=== PATIENT | female | born 1960 | race Caucasian/White ===

== ENCOUNTER 2017-10-09 15:01 | Emergency (ER) | payer MEDICARE, SELFPAY ==
[2017-10-09 15:02] VITALS: BP 143/75; PULSE 57; RESP 16; TEMP 37.2; O2SAT 97; BMI 25.4
[2017-10-09] MEDS: LORazepam 1 MG Tablet PO (15:41)
--- NOTE | 2017-10-09 16:09 | ED.DCSUM_ITS ---
- ER Visit Summary Date of Service: 10/09/17 Chief Complaint: Anxiety History of Present Illness: The patient is a 57 F who presents with anxiety. She does have a history of anxiety. Psychiatry has been weaning down her benzodiazepines. She is currently staying at a domestic violence intermediate. She states that she is going to run out of her medications but is not out yet. She did take a half a milligram of Ativan this morning. She spoke to the counseling center and states that she was advised to be evaluated here in the emergency department. Physical Examination: Febrile vitals are stable Moist mucous membranes Heart regular rate and rhythm Lungs are clear Alert Patient is anxious and tearful at times but she denies suicidal or homicidal ideation. Test Results: Not indicated Emergency Department Course and Treatment: She was given an milligram of Ativan here. I spoke to the counseling center, Sam. He was not aware of the patient. He spoke to the psychiatrist. He reports that the psychiatrist advised them to come to the counseling center to be seen not the emergency department. They were okay with the plan to give an additional dose of Ativan here in follow-up as an outpatient. I do not believe the patient meets involuntary admission criteria. Treatment Plan: [] Disposition: Discharge Impression: Anxiety This note was generated with [employer] dictation software. It may contain incorrect words, spelling, and punctuation that were not noted in review of the chart prior to signing ED Disposition - Plan for ED Patient: Chief Complaint: Anxiety Referrals: Kate Boss RN [Primary Care Provider] -
--- NOTE | 2017-10-09 16:09 | ED.DEP ---
ED Disposition - Plan for ED Patient: Chief Complaint: Anxiety Instructions: ED Panic Attack Referrals: Kate Boss RN [Primary Care Provider] - Counseling,Center [GROUP OF PHYSICIANS] -
[2017-10-09 16:25] VITALS: PULSE 59; RESP 14; O2SAT 100
== END 2017-10-09 16:33 | disposition home or self-care (01) ==
PROVIDERS: Emergency Provider Emergency Medicine
DX: F41.9 Anxiety disorder, unspecified (principal); F32.9 Major depressive disorder, single episode, unspecified; Z86.39 Personal history of other endocrine, nutritional and metabolic disease; Z79.899 Other long term (current) drug therapy
CPT/HCPCS: 99282

== ENCOUNTER → 2017-10-19 15:59 | Outpatient (CLI) | payer MEDICARE, SELFPAY ==
[2017-10-19 17:37] LABS: Absolute Lymphocyte Count 3.75 X10^3/ul (0.83-4.51); Absolute Neutrophil Count 4.9 X10^3/uL (2.0-7.7); Basophil# 0.04 X10^3/uL; Basophil% 0.4 % (0-1); Eosinophil# 0.12 X10^3/uL; Eosinophils% 1.2 % (0-5); Hematocrit 38.9 % (37-47); Hemoglobin 12.8 g/dl (12.0-15.0); Lymphocyte # 3.75 X10^3/ul (4.0); Lymphocyte % 38.6 % (19-41); Mean Corp Hgb Conc 32.9 g/gl (32-36); Mean Corpuscular Volume 94.2 fL (81-99); Mean Platelet Vol. 12.5 fl (6.2-12.0); Monocyte# 0.85 X10^3/uL; Monocyte% 8.8 % (0-10); Neutrophil # 4.92 X10^3/uL (2.7-7.7); Neutrophil % 50.7 % (47-70); Platelet Count 208 K/mm3 (150-450); RBC Distribution Width CV 13.6 % (11.6-14.6); RBC Distribution Width SD 44.9 fl (35.1-43.9); Red Blood Count 4.13 M/mm3 (4.2-5.4); White Blood Count 9.7 K/mm3 (4.4-11.0)
[2017-10-19 17:40] LABS: POSITIVE COUNT NO; POSITIVE DIFFERENTIAL NO; POSITIVE MORPHOLOGY NO
[2017-10-19 18:08] LABS: ALB/GLOB Ratio 0.9 RATIO (0.9-2.4); AST(SGOT) 18 U/L (15-37); Alanine Aminotransfer ALT/SGPT 29 U/L (13-56); Albumin, Serum 3.4 g/dL (3.2-5.0); Alkaline Phosphatase 86 U/L (45-117); Anion Gap 8 (5-15); BUN 17 mg/dL (7-18); BUN/Creat Ratio 18.1 RATIO (10-20); Chloride 103 mmol/L (98-107); Creatinine, Serum 0.94 mg/dL (0.55-1.02); EST Glomerular Filtration Rate 66 mL/min (>60); Est Glom Filt Rate - Afr Amer 80 mL/min (>60); Globulin 3.9 g/dL (2.2-4.2); Glucose 71 mg/dL (74-106); Potassium 4.2 mmol/L (3.5-5.1); Protein, Total 7.3 g/dL (6.4-8.2); Sodium Level 140 mmol/L (136-145); Thyroid Stim Hormone (TSH) 2.04 uIU/mL (0.358-3.74)
[2017-10-19 18:11] LABS: Vitamin D,25 Hydroxy 17.8 ng/mL (29.95-100.01)
[2017-10-21 12:28] LABS: Hep C Antibodies <0.1 s/co ratio (0.0-0.9)
== END ==
PROVIDERS: Visit Provider Family Medicine Geriatric Medicine
DX: E55.9 Vitamin D deficiency, unspecified (principal); R53.83 Other fatigue; N39.0 Urinary tract infection, site not specified
CPT/HCPCS: 36415; 80053; 82306; 84443; 85025; 86803; 87086

== ENCOUNTER 2017-11-12 20:12 | Emergency (ER) | payer MEDICARE, SELFPAY ==
--- NOTE | 2017-11-12 20:12 | DT_ITS ---
This patient was seen during an EMR downtime November 09, 2017 - November 16, 2017. This patient may have a combination of paper and electronic documentation or all paper documentation. All documentation is viewable within the e-chart portion of [employer] for each patient visit.
[2017-11-14 12:12] LABS: Bacteria 0 SEEN /hpf (None Seen); Color, Urine Yellow (Yellow); Glucose, Dipstick NEGATIVE (Normal); Ketone-Dipstick Negative (Negative); Leukocyte Esterase-Dipstick Negative /ul (Negative); Mucous, Urine 0 SEEN /hpf (<or=2+); Nitrite-Dipstick Negative (Negative); Occult Blood-Urine 10 /ul (Negative); Protein-Dipstick Negative (Negative); Red Blood Cells-Urine 0 SEEN /hpf (0-5); Specific Gravity, Urine 1.015 (1.002-1.030); Squamous Epithelial Cells - UA 0 SEEN /hpf (5-10); Urine Bilirubin Dipstick Negative (Negative); Urine Clarity Clear (Clear); Urine Urobilinogen Normal (Normal); White Blood Cells 0 SEEN /hpf (0-5)
== END 2017-11-12 21:00 | disposition home or self-care (01) ==
LOC: ED 11-13 08:05
PROVIDERS: Emergency Provider Emergency Medicine
DX: F41.9 Anxiety disorder, unspecified (principal); R19.7 Diarrhea, unspecified; R31.9 Hematuria, unspecified; F32.9 Major depressive disorder, single episode, unspecified; E78.5 Hyperlipidemia, unspecified; E78.00 Pure hypercholesterolemia, unspecified; Z79.899 Other long term (current) drug therapy
CPT/HCPCS: 81001; 99283

== ENCOUNTER → 2018-03-16 14:29 | Outpatient (CLI) | payer MEDICARE, SELFPAY | PROVIDERS: Visit Provider Family Medicine Geriatric Medicine | DX: N39.0 Urinary tract infection, site not specified (principal) | CPT/HCPCS: 87086; 87088 ==

== ENCOUNTER → 2018-06-24 15:44 | Outpatient (CLI) | payer MEDICARE, SELFPAY ==
[2018-06-24 17:47] LABS: Absolute Lymphocyte Count 2.95 X10^3/ul (0.83-4.51); Absolute Neutrophil Count 5.5 X10^3/uL (2.0-7.7); Basophil# 0.03 X10^3/uL; Basophil% 0.3 % (0-1); Eosinophils% 2.1 % (0-5); Hematocrit 37.2 % (37-47); Hemoglobin 11.9 g/dl (12.0-15.0); Lymphocyte # 2.95 X10^3/ul (4.0); Lymphocyte % 31.4 % (19-41); Mean Corpuscular Hgb 29.8 pg (27.0-32.0); Mean Corpuscular Volume 93.2 fL (81-99); Mean Platelet Vol. 11.3 fl (6.2-12.0); Monocyte# 0.69 X10^3/uL; Monocyte% 7.4 % (0-10); Neutrophil % 58.7 % (47-70); Platelet Count 244 K/mm3 (150-450); RBC Distribution Width CV 13.8 % (11.6-14.6); RBC Distribution Width SD 46.8 fl (35.1-43.9); Red Blood Count 3.99 M/mm3 (4.2-5.4); White Blood Count 9.4 K/mm3 (4.4-11.0)
[2018-06-24 17:49] LABS: POSITIVE COUNT NO; POSITIVE DIFFERENTIAL NO; POSITIVE MORPHOLOGY NO
[2018-06-24 18:04] LABS: AST(SGOT) 24 U/L (15-37); Alanine Aminotransfer ALT/SGPT 35 U/L (13-56); Albumin, Serum 3.7 g/dL (3.2-5.0); Alkaline Phosphatase 111 U/L (45-117); Anion Gap 9 (5-15); BUN 14 mg/dL (7-18); BUN/Creat Ratio 14.6 RATIO (10-20); Chloride 105 mmol/L (98-107); Creatinine, Serum 0.96 mg/dL (0.55-1.02); EST Glomerular Filtration Rate 64 mL/min (>60); Est Glom Filt Rate - Afr Amer 78 mL/min (>60); Globulin 3.7 g/dL (2.2-4.2); Glucose 109 mg/dL (74-106); Potassium 4.2 mmol/L (3.5-5.1); Protein, Total 7.4 g/dL (6.4-8.2); Sodium Level 141 mmol/L (136-145); Thyroid Stim Hormone (TSH) 1.86 uIU/mL (0.358-3.74)
[2018-06-24 18:09] LABS: Vitamin D,25 Hydroxy 27.1 ng/mL (29.95-100.01)
--- OUTSIDE RECORDS SUMMARY | 2018-08-29 11:25 | XMS RPT_ITS ---
:1960 Author Organization OHIP Care Team Providers Name Role Phone Gustavo Booth Chi Attending Unavailable Tu Genao Attending Unavailable Toshia Bsos Primary Care Unavailable Gustavo Booth Chi Attending Unavailable Toshia Boss Primary Care Unavailable ANGEL OBRIEN Attending Unavailable ANGEL OBRIEN Referring Unavailable Toshia Boss Primary Care Unavailable Gustavo Booth Chi Attending Unavailable THA MARIEBERT A Admitting Unavailable THA MARIEBERT A Attending Unavailable ANDRAE COX Consulting Unavailable ASH GOMEZ (RES) Attending Unavailable CYNTHIA, GILBERT A Referring Unavailable ASH GOMEZ (RES) Attending Unavailable JASON ALEMAN (RES) Attending Unavailable CYNTHIA, GILBERT A Referring Unavailable ASH GOMEZ (RES) Attending Unavailable CYNTHIA, GILBERT A Referring Unavailable ASH GOMEZ (RES) Attending Unavailable CYNTHIA, GILBERT A Referring Unavailable ASH GOMEZ (RES) Attending Unavailable JENNIFER MCDANIELS (RES) Attending Unavailable CYNTHIA, GILBERT A Referring Unavailable ASH GOMEZ (RES) Attending Unavailable CYNTHIA, GILBERT A Referring Unavailable IMCA Primary Care Unavailable CYNTHIA, GILBERT A Admitting Unavailable CYNTHIA, GILBERT A Attending Unavailable ANDRAE COX Consulting Unavailable GOMEZ, DO ALEMAN Attending Unavailable IMCA Primary Care Unavailable CYNTHIA, GILBERT A Referring Unavailable GOMEZ, DO ALEMAN Attending Unavailable IMCA Referring Unavailable [facility]CA Primary Care Unavailable GOMEZ, DO ALEMAN Attending Unavailable CYNTHIA, GILBERT A Referring Unavailable JEAN-PIERRE, GUSTAVO-CHI Primary Care Unavailable GOMEZ, DO ALEMAN Attending Unavailable JEAN-PIERRE, GUSTAVO-CHI Primary Care Unavailable CYNTHIA, GILBERT A Referring Unavailable TOSHIA BOSS CNP Admitting Unavailable TOSHIA BOSS INTERNATIONAL NURSE Attending Unavailable TOSHIA BOSS CNP Primary Care Unavailable GUSTAVO BOOTH MD Consulting Unavailable PROVIDER, UNKNOWN Consulting Unavailable PROVIDER, UNKNOWN Consulting Unavailable PROBLEMS PROBLEMS DATE TYPE CONDITION / CODE ATTENDING STATUS SOURCE 02/18/2018 Active Bipolar disorder, [facility], Active [place] current episode ALEMAN (RES) Clinic Other depressed, severe, [place] without psychotic Repository features / F31.4(ICD-10) 02/04/2018 Active Bipolar disorder, GOMEZ, Active [place] current episode ALEMAN (RES) Clinic Other mixed, unspecified [place] / F31.60(ICD-10) Repository 02/04/2018 Active Generalized [facility], Active [place] anxiety disorder / ALEMAN (RES) Clinic Other F41.1(ICD-10) [place] Repository 12/29/2017 Active Suicidal ideations COLBERT, Active [place] / R45.851(ICD-10) GILBERT A Clinic Other [place] Repository 12/16/2017 Active Slow transit CYNTHIA, Active [place] constipation / GILBERT A Clinic Other K59.01(ICD-10) [place] Repository 12/15/2017 Active Major depressive CYNTHIA, Active [place] disorder, single GILBERT A Clinic Other episode, [place] unspecified / Repository F32.9(ICD-10) 12/15/2017 Active Bipolar disorder, CYNTHIA, Active [place] current episode GILBERT A Clinic Other manic severe with [place] psychotic features Repository / F31.2(ICD-10) 12/15/2017 Active Episodic CYNTHIA, Active [place] tension-type GILBERT A Clinic Other headache, not [place] intractable / Repository G44.219(ICD-10) 12/15/2017 Active Bipolar disorder, CYNTHIA, Active [place] current episode [facility] Other mixed, severe, [place] without psychotic Repository features / F31.63(ICD-10) 12/16/2017 Admitting Unknown / CYNTHIA, Active [place] [facility] diagnosis UNK(Unknown) [facility] Repository 12/04/2017 Unknown R10.9 - ANGEL OBRIEN Active [place] Unspecified Community abdominal pain / Hospital R10.9(ICD-10) Repository PROCEDURES PROCEDURES No Procedure Records FoundRESULTS RESULTS Observed: 06/24/2018 Status: F Source: [place] CULTURE, URINE 4:14 PM [facility] REPOSITORY Urine Culture Below infection level. ORGANISM 1: Mixed Gram Positive Organisms [place] Count 1000-10,000 MIX CULTURE Mixed contaminants. Submit a new specimen if indicated. Performed By: #### M100.0650 #### [facility] [address] [place], [address] CBC W/DIFF, AUTOMATED Collected: 06/24/2018 Status: F Source: [place] 3:46 PM [facility] REPOSITORY TYPE CODE TESTS RESULT OUT OF RANGE REFERENCE UNITS LAB L100.1000 4.4-11.0 K/mm3 Normal WBC 9.4 LAB L100.1200 4.2-5.4 M/mm3 Low RBC 3.99 LAB L100.1300 12.0-15.0 g/dl Low HGB 11.9 LAB L100.1400 37-47 % Normal HCT 37.2 LAB L100.1500 81-99 fL Normal MCV 93.2 LAB L100.1600 27.0-32.0 pg Normal MCH 29.8 LAB L100.1700 32-36 g/gl Normal MCHC 32.0 LAB L100.1810 11.6-14.6 % Normal RDW CV 13.8 LAB L100.1820 35.1-43.9 fl High RDW SD 46.8 LAB L100.1900 150-450 K/mm3 Normal PLT 244 LAB L100.2000 6.2-12.0 fl Normal MPV 11.3 LAB L100.2100 47-70 % Normal NEUT% 58.7 LAB L100.2200 19-41 % Normal LY% 31.4 LAB L100.2300 0-10 % Normal MONO% 7.4 LAB L100.2400 0-5 % Normal EO% 2.1 LAB L100.2500 0-1 % Normal BASO% 0.3 LAB L100.2550 0.0-0.9 % Normal IM GRAN % 0.100 Result Comment: IG% - Immature Granulocytes (promyelocytes, myelocytes and metamyelocytes) > 1% indicates that a LEFT SHIFT is Present. LAB L100.2620 2.0-7.7 X10 3/uL Normal Absolute Neut 5.5 LAB L100.2720 0.83-4.51 X10 3/ul Normal Absolute Lymph 2.95 Performed By: #### L100.0100 #### [facility] [address] [place], [place], [address] COMPREHENSIVE METABOLIC Collected: 06/24/2018 Status: F Source: [facility] 3:46 PM [facility] REPOSITORY TYPE CODE TESTS RESULT OUT OF RANGE REFERENCE UNITS LAB L501.0100 74-106 mg/dL High GLU 109 Result Comment: Fasting Glucose result from 100 to 125 mg/dL suggests IMPAIRED HOMEOSTASIS per A.D.A. criteria. Please note revised GLUCOSE reference range effective 2017. LAB L501.1000 7-18 mg/dL Normal BUN 14 LAB L501.1100 0.55-1.02 mg/dL Normal CREAT,SERUM 0.96 Result Comment: The validity of the calculated GFR AND GFRAA in patients over 70 years has not been determined. Clinical correlation is essential. LAB L501.1110 >60 mL/min Normal EST GFR 64 Result Comment: Non- GFR Calc LAB L501.1115 >60 mL/min Normal EST GFR - AA 78 Result Comment: GFR Calc LAB L501.1300 10-20 RATIO Normal BUN/CRE 14.6 LAB L501.1500 6.4-8.2 g/dL T Normal PROT 7.4 LAB L501.1800 3.2-5.0 g/dL Normal ALB 3.7 LAB L501.1950 2.2-4.2 g/dL Normal GLOB 3.7 LAB L501.2000 0.9-2.4 RATIO Normal A/G 1.0 LAB L501.2200 8.5-10.1 mg/dL CA Normal 9.0 LAB L501.4100 15-37 U/L Normal AST 24 LAB L501.4305 45-117 U/L Normal ALK P 111 LAB L501.4405 13-56 U/L Normal ALT 35 LAB L501.4600 0.20-1.00 mg/dL T Normal BILI 0.40 LAB L501.5300 136-145 mmol/L NA Normal 141 LAB L501.5600 3.5-5.1 mmol/L K Normal 4.2 LAB L501.5900 98-107 mmol/L CL Normal 105 LAB L501.6100 21.0-32.0 mmol/L Normal CO2 27.0 LAB L501.6200 5-15 Normal GAP 9 Performed By: #### L500.4050, L501.9520 #### [facility] [address] [place], [place], [address] THYROID STIM HORMONE Collected: 06/24/2018 Status: F Source: [place] (TSH) 3:46 PM [facility] REPOSITORY TYPE CODE TESTS RESULT OUT OF RANGE REFERENCE UNITS LAB L501.9520 0.358-3.74 uIU/mL Normal TSH 1.86 Performed By: #### L500.4050, L501.9520 #### [facility] [address] [place], [place], [address] VITAMIN D,25 HYDROXY Collected: 06/24/2018 Status: F Source: [place] 3:46 PM [facility] REPOSITORY TYPE CODE TESTS RESULT OUT OF REFERENCE UNITS RANGE LAB L506.1000 29.95-100.01 ng/mL Low Vitamin D 27.1 25-OH Result Comment: Vitamin D 25(OH) Status Range Deficiency <20 ng/mL (50nmol/L) Insuffciency 20 - 30 ng/mL (50 - 75 nmol/L) Sufficiency 30 - 100 ng/mL (75 - 250 nmol/L) Toxicity >100 ng/mL (>250 nmol/L) Performed By: #### L506.1000 #### [facility] [address] [place], [place], [address] PROGRESS Observed: 06/17/2018 Status: COMPLETED Source: [place] 4:23 PM [facility] [place] REPOSITORY HNO ID: [id number] Author: Ravindra Bray Service: (none) Author Type: Physician Type: Progress Notes Filed: 06/18/2018 9:17 AM Note Text: Teaching Attending Note I evaluated the patient and personally participated in the fair components. I agree with the resident's findings and plan as documented and have discussed the case and management of the patient's care with the resident. I confirm the fair elements of the history. I confirm the fair elements of the mental status examination. I reviewed the findings with the resident. I confirm the diagnosis and agree with the resident's plan of care. Please see resident's note for furthur details. The patient was seen with her . She was pleasant and cooperative with the examination. Patient reports that her symptoms of depression and anxiety are under good control. She is tolerating her medications well. Patient's sleep is reported as being fair. She is not reporting any active suicidal or homicidal thoughts or plans. Patient denies any paranoid thoughts or delusions. She denies any auditory or visual hallucinations. Patient denies any use of alcohol, tobacco or illicit drugs. Her cognitive functioning is good. Patient's insight and judgment are fair. She agrees to comply with the treatment plan. PHQ-9: 0, last 5 MICHAEL-7: 0, last 5 Current Outpatient Prescriptions: buPROPion XL (WELLBUTRIN XL) 150 mg 24 hr tablet Take 1 tablet by mouth once daily. Disp: 30 tablet Rfl: 0 DULoxetine (CYMBALTA) 60 mg capsule Take 1 capsule by mouth once daily. Disp: 30 capsule Rfl: 2 lamoTRIgine (LAMICTAL) 200 mg tablet Take 1 tablet by mouth twice daily. Disp: 60 tablet Rfl: 0 OLANZapine (ZYPREXA) 10 mg tablet Take 1 tablet by mouth daily at bedtime. Disp: 30 tablet Rfl: 0 oxybutynin (DITROPAN) 5 mg tablet Disp: Rfl: atorvastatin (LIPITOR) 20 mg tablet Take 20 mg by mouth once daily. Disp: Rfl: No current facility-administered medications for this visit. There were no vitals taken for this visit. PDMP website checked and validated. All prescriptions have been APPROPRIATELY filled. No suspicious activity was identified. 06/17/2018 by Ravindra Bray MD We discussed a treatment plan with the patient and her . She will continue on Zyprexa 10 mg by mouth once daily, Lamictal 200 mg by mouth twice daily, Cymbalta 60 mg by mouth once daily and Wellbutrin XL 150 mg by mouth once daily. She will return for follow-up appointment in 6 weeks time. If there are any problems in the interim, the patient will contact our clinic for an earlier appointment. For all medical and psychiatric emergencies, the patient will go to the nearest emergency room. Diagnosis Bipolar 1 disorder, current episode depressed, in partial remission Generalized anxiety disorder Plan As indicated in Dr. Pablo's excellent note. Ravindra Bray MD, MS, DFAPA Director Operations Broadcast, Department of Psychiatry AND Behavioral Sciences [facility] Chief, Section for Geriatric Psychiatry [facility] chef under, [facility] at [facility] P: [phone] F: [phone] [email or web address] Pager: [phone] PROGRESS Observed: 06/17/2018 Status: COMPLETED Source: [place] 3:00 PM [facility] REPOSITORY HNO ID: [id number] Author: Ash (Jv) Jason Service: (none) Author Type: Resident Type: Progress Notes Filed: 06/18/2018 9:17 AM Note Text: [facility] Security And Privacy Consultant Clinic PROGRESS NOTE PATIENT: Radha Lancaster MRD: [id number] DATE: June 17, 2018 IDENTIFYING INFORMATION: Radha is a 58 year old female with a history of bipolar affective disorder, a learning disability, generalized anxiety disorder, and conversion disorder. Currently follows in the clinic for symptoms of depression and anxiety. Recently decreased her seroquel AND then discontinued it, along with reducing her dose of Zyprexa to 10 mg rather than 20 mg BID. CHIEF COMPLAINT: I feel great SUBJECTIVE: Patient has a cheerful demeanor today, but doesn't appear overtly manic. That is, she's happy with her recent improvements in anxiety, sleep quality, and activity level. She is able to maintain a daily routine and is starting to volunteer more. Moreover, her reports she appears to have less word finding difficulty and can annunciate clearly. They attribute this to the oversedatation with prior medications. They both believe that this is the best she has been in some time, but her doesn't appear worried about her being too elevated. At this time, she seems genuinely happy with recent changes and is relatively realistic with her goals. I am not observing or appreciating grandiosity, psychomotor excitation, decreased need for sleep, or out of character behaviors, and neither has her . Either way, encouraged her to work on her goal of getting more exercise, but cautioned about being realistic and working on one goal at a time. The progress she has made follows a reduction in her antipsychotic medication and psychosocial interventions including supportive psychotherapy and applying principles of CBT (mostly starting with getting picture of basic patterns and then creating structure). Medication side effects: None VITAL SIGNS: There were no vitals taken for this visit. LAB DATA: see EHR. None for this session. MENTAL STATUS EXAMINATION: Appearance: appears stated age, ,Female, well developed, well nourished, normal clothing, grooming is Within Normal Limits, generally attends to her appearance. Activity: Normal , Steady gait, neutral muscle tone, Behavior: Cooperative and gregarious, but this appears sincere AND not excessive, Good eye contact, Speech: spontaneous , Normal rate, Normal volume, Clear, Mood: Euthymic and content Affect: appropriate to content and with full AND bright affect Thought Process: coherent and circumstantial Thought Content: see HPI. Wants to start exercise regimen, No suicidal ideation, intent or plan., No homicidal ideation, intent or plan., Coherent Cognition: Orientation: Person, Place, Time and Situation Attention: Intact Concentration: Impaired, but appears improved since previous appointments. May be near her baseline. Language: Intact naming, Intact repetition Estimated Intelligence: Fair Memory: Intact recent memory, Intact remote memory Abstraction: Intact Insight: fair Judgement: fair RATING SCALES: PHQ was a 2 AND MICHAEL 7 was a 0. Discussed results with patient AND attending provider. Will continue to monitor. RISK ASSESSMENT: low at this time for suicidal or homicidal behavior IMPRESSION: 1. Bipolar 1 disorder, in partial remission 2. Generalized anxiety disorder 3. Learning disability: Dyslexia 4. Rule out Unspecified neurodevelopmental disorder vs neurocognitive disorder 5. Deferred Medical Diagnoses: see EHR PLAN: 1. Continue with current plan. Discussed realistic treatment goals with patient AND her . 2. Medications: Continue on current regimen without changes. Encouraged patient to take as prescribed. 3. Labs: none this session. PDMP website checked and validated. All prescriptions have been APPROPRIATELY filled. No suspicious activity was identified. 06/17/2018 by Ash Gomez DO 4. Patient understands and agrees with the plan: Yes Return in 6 weeks[address] Discussed patient with Dr. Bray. Electronically signed by Ash Gomez DO June 17, 2018 11:11 AM PROGRESS Observed: 06/03/2018 Status: COMPLETED Source: [place] 2:30 PM [facility] [place] HNO ID: [id number] Author: Ravindra Bray Service: (none) Author Type: Physician Type: Progress Notes Filed: 06/03/2018 5:18 PM Note Text: Teaching Attending Note I evaluated the patient and personally participated in the fair components. I agree with the resident's findings and plan as documented and have discussed the case and management of the patient's care with the resident. I confirm the fair elements of the history. I confirm the fair elements of the mental status examination. I reviewed the findings with the resident. I confirm the diagnosis and agree with the resident's plan of care. Please see resident's note for furthur details. The patient was seen with her . She was pleasant and cooperative with the examination. Patient reports that her symptoms of depression and anxiety are under fair control. Patient still has some sedation from the Zyprexa and she is also concerned about some recent weight gain. Patient also reported that she was not receiving the medications from the pharmacy on time. Patient did not report any suicidal or homicidal thoughts or plans. She denied any paranoid thoughts or delusions. Patient denied any auditory or visual hallucinations. Not report any use of alcohol, tobacco or illicit drugs. Her cognitive functioning was mildly impaired on the cognitive testing done at the last appointment. Patient however remains independent with her basic and instrumental activities of daily living. Her insight and judgment are fair and she agrees to comply with the treatment plan. PHQ-9: 5, last 6 MICHAEL-7: 5, last 6 Cognivue: Done at the last appointment, 48, high risk for cognitive impairment Current Outpatient Prescriptions: atorvastatin (LIPITOR) 20 mg tablet Take 20 mg by mouth once daily. Disp: Rfl: buPROPion XL (WELLBUTRIN XL) 150 mg 24 hr tablet Take 1 tablet by mouth once daily. Disp: 30 tablet Rfl: 0 DULoxetine (CYMBALTA) 60 mg capsule Take 1 capsule by mouth once daily. Disp: 30 capsule Rfl: 2 lamoTRIgine (LAMICTAL) 200 mg tablet Take 1 tablet by mouth twice daily. Disp: 60 tablet Rfl: 0 OLANZapine (ZYPREXA) 10 mg tablet Take 1 tablet by mouth daily at bedtime. Disp: 30 tablet Rfl: 0 oxybutynin (DITROPAN) 5 mg tablet Disp: Rfl: oxybutynin XL (DITROPAN XL) 5 mg 24 hr tablet Take 5 mg by mouth once daily. Disp: Rfl: No current facility-administered medications for this visit. There were no vitals taken for this visit. All prescriptions have been APPROPRIATELY filled. No suspicious activity was identified. We discussed a show weight gain with the patient. We counseled the patient on eating healthy and daily exercise. Even if with these measures, the patient continues to gain weight we will refer the patient with dietitian. We may also need to discontinue the Zyprexa at a later date if the weight gain continues. We discussed a treatment plan with the patient and her . Patient will continue on Zyprexa at 10 mg by mouth once daily, Lamictal 200 mg by mouth twice daily, Cymbalta 60 mg by mouth once daily and Wellbutrin XL 150 mg by mouth once daily. Patient will return for follow- up appointment in 2 weeks time. If there are any problems in the interim, the patient or her will contact our clinic for an earlier appointment. For all medical and psychiatric emergencies, the patient will go to the nearest emergency room. Diagnosis Bipolar 1 disorder, current episode depressed, in partial remission Generalized anxiety disorder Antipsychotic-induced weight gain Plan As indicated in Dr. Mcdaniels's excellent note. Ravindra Bray MD, MS, DFAPA Director Operations Broadcast, Department of Psychiatry AND Behavioral Sciences [facility] Chief, Section for Geriatric Psychiatry [facility] chef under, [facility] at [facility] P: [phone] F: [phone] [email or web address] Pager: [phone] PROGRESS Observed: 06/03/2018 Status: COMPLETED Source: [place] 1:38 PM [facility] REPOSITORY HNO ID: [id number] Author: Jennifer Mcdaniels Service: (none) Author Type: Resident Type: Progress Notes Filed: 06/03/2018 5:18 PM Note Text: [facility] Security And Privacy Consultant Clinic PROGRESS NOTE PATIENT: Radha Lancaster MRD: [id number] DATE: June 03, 2018 IDENTIFYING INFORMATION: Radha is a 58 year old female with a history of bipolar disorder. CHIEF COMPLAINT: I'm doing well SUBJECTIVE: She says that the current medications are working well for her. The only concern that they have is that her medications is not arriving on time. She says that she forgot to get her labs done, and appears to be confused during this visit. She is still volunteering every Thursday. She says that she feels the medication regimen is working well. She says that the Zyprexa makes her too tired in the morning. She tried to take it earlier and then will fall asleep about 30 min after taking it. She is also concerned about her weight gain on the medications however, overall both her and her feel she is doing well. She feels her mood has improved and stabilized and denies suicidal ideations. Her is grateful she has received such good care at this clinic. Medication side effects: weight gain VITAL SIGNS: There were no vitals taken for this visit. LAB DATA: Patient forget MENTAL STATUS EXAMINATION: Appearance: Well dressed, well groomed Behavior: Socially awkward Social relatedness: Anxious/Nervousness Speech/Language:The patient demonstrates appropriate tone, prosody, luis, phonetics, and syntax Mood:flat Affect: Blunted Orientation: Person, Place, Time and Situation Associations: Intact and linear Hallucinations: None Delusions: None Suicidal Ideation: No suicidal ideation, intent or plan. Homicidal Ideation: No homicidal ideation, intent or plan. Insight: Limited Judgment: Limited RATING SCALES: PHQ-9: 5 MICHAEL-7: 5.5 RISK ASSESSMENT: The patient denies suicidal and homicidal ideations as well as thoughts of harm to herself and others. 1. Bipolar I Disorder, most recent episode mixed 2. Generalized Anxiety Disorder 3. Specific learning disorder - dyslexia, per history 6. Rule out Dependent Personality Traits Medical Diagnoses: see EHR ? PLAN: 1. Medications: Zyprexa 10 mg, Lamictal 200 mg BID, Cymbalta 60 mg daily and Wellbutrin XL 150 mg daily 2. I called [facility] to see why prescriptions are always late - they assured that the prescriptions are sent out a week in advance. They say the last time, her medications were accidentally shipped to [place], but were only a day late. They say they will continue to get them to her as early as possible. 3. Labs: A1c, Lipids, AND?TSH - patient forgot, reminded them to get this done PDMP website checked and validated. All prescriptions have been APPROPRIATELY filled. No suspicious activity was identified. 06/03/2018 by Jennifer Mcdaniels DO Patient understands and agrees with the plan: Yes Return in [address] Discuss[address] patient with Dr. Bray. Electronically signed by Jennifer Mcdaniels DO June 03, 2018 1:38 PM PROGRESS Observed: 05/14/2018 Status: COMPLETED Source: [place] 4:20 PM [facility] [place] REPOSITORY HNO ID: [id number] Author: Ravindra Bray Service: (none) Author Type: Physician Type: Progress Notes Filed: 05/17/2018 11:40 AM Note Text: Teaching Attending Note I evaluated the patient and personally participated in the fair components. I agree with the resident's findings and plan as documented and have discussed the case and management of the patient's care with the resident. I confirm the fair elements of the history. I confirm the fair elements of the mental status examination. I reviewed the findings with the resident. I confirm the diagnosis and agree with the resident's plan of care. Please see resident's note for furthur details. The patient was seen with her . She was pleasant and cooperative with the examination. Patient reports an improvement in her symptoms of depression and anxiety since the last appointment. She still complains of some sedation. Patient did not report any suicidal or homicidal thoughts or plans. She denied paranoid thoughts or delusions. Patient denied any auditory or visual hallucinations. Patient did not report any use of alcohol, tobacco or illicit drugs. Her cognitive functioning was mildly impaired on testing. Patient however remains independent with her days again instrumental activities of daily living. Her insight and judgment are fair. The patient agrees to comply with the treatment plan. PHQ-9: 6, last 16 MICHAEL-7: 6, last 12 Cognivue: 46, cognitive impairment Current Outpatient Prescriptions: DULoxetine (CYMBALTA) 60 mg capsule Take 1 capsule by mouth once daily. Disp: 30 capsule Rfl: 2 OLANZapine (ZYPREXA) 10 mg tablet Take 1 tablet by mouth daily at bedtime. Disp: 30 tablet Rfl: 0 oxybutynin (DITROPAN) 5 mg tablet Disp: Rfl: atorvastatin (LIPITOR) 20 mg tablet Take 20 mg by mouth once daily. Disp: Rfl: oxybutynin XL (DITROPAN XL) 5 mg 24 hr tablet Take 5 mg by mouth once daily. Disp: Rfl: lamoTRIgine (LAMICTAL) 200 mg tablet Take 1 tablet by mouth twice daily. Disp: 60 tablet Rfl: 0 buPROPion XL (WELLBUTRIN XL) 150 mg 24 hr tablet Take 1 tablet by mouth once daily. Disp: 30 tablet Rfl: 0 No current facility-administered medications for this visit. All prescriptions have been APPROPRIATELY filled. No suspicious activity was identified. We discussed a treatment plan with the patient and her . As the patient is still complaining of sedation, we will discontinue the Seroquel today. Patient will continue on Zyprexa 10 mg by mouth twice daily number Lamictal 200 mg by mouth twice daily, Cymbalta 60 mg by mouth once daily and Wellbutrin XL 150 mg by mouth once daily. We also discussed the patient's cognitive impairment noted today on computerized testing. This is probably secondary to the patient's depression and anxiety. The medications that she is taking also may be contemplating to the cognitive issues. We will keep a close watch on the patient's cognitive functioning. Patient will return for follow-up appointment in 3 weeks time. If there are any problems in the interim, the patient will contact our clinic for an earlier appointment. For all medical and psychiatric emergencies, the patient will go to the nearest emergency room. Diagnosis Bipolar 1 disorder, current episode depressed, in partial remission Generalized anxiety disorder Plan As indicated in Dr. Pablo's excellent note. Ravindra Bray MD, MS, [facility] Director Operations Broadcast, Department of Psychiatry AND Behavioral Sciences [facility] Chief, Section for Geriatric Psychiatry [facility] chef under, [facility] [employer] at [facility] P: [phone] F: [phone] [email or web address] Pager: [phone] PROGRESS Observed: 05/14/2018 Status: COMPLETED Source: [facility] 3:05 PM [facility] REPOSITORY HNO ID: [id number] Author: Ash (Brendan Gomez Service: (none) Author Type: Resident Type: Progress Notes Filed: 05/17/2018 11:40 AM Note Text: [facility] Security And Privacy Consultant Clinic PROGRESS NOTE PATIENT: Radha Lomax MRD: [id number] DATE: May 14, 2018 IDENTIFYING INFORMATION: Radha is a 58 year old female with a history of bipolar disorder, dyslexia, and depression. CHIEF COMPLAINT: I am doing better, I still feel really tired SUBJECTIVE: Asked about missed appointment policy, as her father may pass away. He is ill and near . Her and her asked for leeway if they need to miss an appointment and call afterwards to reschedule. She reports her mood has improved, she's more active, and feels more organized. Still has issues with trying to set too many goals or tasks at one time and then gets anxious about it. Able to integrated advice from therapist and regarding this. Feels her appetite has increased, she skips lunch, and then eats a large dinner to compensate. Other relevant stressor was her husbands ND that required catheterization with stent around thanksgiving, seemed to have a paradoxic effect as it was stressful, but it orlin them closer as she realized how grateful he was and possibly how fragile life is, yet they both still have the opportunities to make the most of it. The couple is grateful for the treatment given here at the clinic. Medication side effects: sedation VITAL SIGNS: There were no vitals taken for this visit. LAB DATA: metabolic labs. Not found in EMR, will update chart when completed/found. MENTAL STATUS EXAMINATION: Appearance: appears stated age, ,Female, well developed, well nourished, normal clothing, grooming is Within Normal Limits, slightly formal today Activity: Normal , Steady gait, normal muscle tone, Behavior: Cooperative, Good eye contact, silly acting in a way, but this is her baseline Speech: spontaneous , Rapid rate, Normal volume, Clear, Mood: Euthymic in session, but anxious at times prior Affect: appropriate to content, full and bright Thought Process: circumstantial and tangential Thought Content: future oriented and optimistic, No suicidal ideation, intent or plan., No homicidal ideation, intent or plan., Ruminations: about failure to complete things, but more forgiving of self Cognition: Orientation: Person, Place, Time and Situation Attention: Impaired Concentration: Impaired Language: Intact naming, Intact repetition Estimated Intelligence: Average Memory: Intact recent memory, Intact remote memory Abstraction: Intact Insight: fair Judgement: fair RATING SCALES: Patient Health Questionnaire (PHQ-9) PHQ-9: 6 Score of 5 - 9 indicates mild depression. This is decreased from previous value of 16 measured on 04/22. However the issues she indicated on her PHQ included appetite, concentration difficulties, and psychomotor vegetative signs. MICHAEL-7: 7 Score of 5-9 indicates mild anxiety. This decreased from 12 as measured on 04/22. RISK ASSESSMENT: low for suicidal or aggressive behaviors, moderate for other forms of acting out. ? IMPRESSION: Her affective disorder impairs her ability to function, however, it appears she's affected by her polypharmacy (iatrogenic), cognitive, personality traits, or a combination of them leading to consistent cycling of decompensations requiring assistance AND healthcare intervention. As of this assessment, going to adjust her medication regimen and monitor her cognitive status. ? 1. Bipolar I Disorder, most recent episode mixed 2. Generalized Anxiety Disorder 3. Specific learning disorder - dyslexia, per history 6. Rule out Dependent Personality Traits Medical Diagnoses: see EHR ? PLAN: 1. Continue current medication regimen, except discontinuation. Encouraged her to maintain routine and prioritize. 2. Medications: Discontinued Seroquel to 50 mg QHS. Rest medications kept the same. See AUG 3. Labs: A1c, Lipids, AND TSH PDMP website checked and validated. All prescriptions have been APPROPRIATELY filled. No suspicious activity was identified. 05/14/2018 by Ash Gomez DO 1. Patient understands and agrees with the plan: Yes Return in [address] Mcdaniels while I'm on vacation. 5-6 weeks to follow up with me Discussed patient with Dr. Bray. Electronically signed by Ash Gomez DO May 14, 2018 3:05 PM PROGRESS Observed: 04/22/2018 Status: COMPLETED Source: SIMS 3:08 PM [facility] [place] REPOSITORY O ID: [id number] Author: Ravindra Bray Service: (none) Author Type: Physician Type: Progress Notes Filed: 04/23/2018 10:16 AM Note Text: Teaching Attending Note I evaluated the patient and personally participated in the fair components. I agree with the resident's findings and plan as documented and have discussed the case and management of the patient's care with the resident. I confirm the fair elements of the history. I confirm the fair elements of the mental status examination. I reviewed the findings with the resident. I confirm the diagnosis and agree with the resident's plan of care. Please see resident's note for furthur details. The patient was seen with her . She was pleasant and cooperative with the examination. Patient reports feeling depressed. She also reports feeling anxious. Patient reports some suicidal thoughts but no active plans. She reports some sedation with the current medications. Patient does not report any paranoid thoughts or delusions. She denies any auditory or visual hallucinations. Patient denies any use of alcohol, tobacco or illicit drugs. Her cognitive functioning is fair. Patient's insight and judgment are fair. She agrees to comply with the treatment plan. PHQ-9: 16, Last 0 MICHAEL-7: 12, Last 1 Current Outpatient Prescriptions: QUEtiapine (SEROQUEL) 100 mg tablet Take 1 tablet by mouth daily at bedtime. Disp: 30 tablet Rfl: 0 OLANZapine (ZYPREXA) 10 mg tablet Take 1 tablet by mouth daily at bedtime. Disp: 30 tablet Rfl: 0 oxybutynin (DITROPAN) 5 mg tablet Disp: Rfl: atorvastatin (LIPITOR) 20 mg tablet Take 20 mg by mouth once daily. Disp: Rfl: oxybutynin XL (DITROPAN XL) 5 mg 24 hr tablet Take 5 mg by mouth once daily. Disp: Rfl: lamoTRIgine (LAMICTAL) 200 mg tablet Take 1 tablet by mouth twice daily. Disp: 60 tablet Rfl: 0 DULoxetine (CYMBALTA) 60 mg capsule Take 1 capsule by mouth once daily. Disp: 30 capsule Rfl: 0 buPROPion XL (WELLBUTRIN XL) 150 mg 24 hr tablet Take 1 tablet by mouth once daily. Disp: 30 tablet Rfl: 0 No current facility-administered medications for this visit. We discussed a treatment plan with the patient and her . As the patient is complaining of sedation we will decrease the dose of Seroquel to 50 mg by mouth daily at bedtime. Patient will continue on Zyprexa 10 mg by mouth twice daily, Lamictal 200 mg by mouth twice daily, Cymbalta 60 mg by mouth once daily and Wellbutrin XL 150 mg by mouth once daily. The option for admission to inpatient psychiatric unit and ECT treatment were discussed. Patient return for follow-up appointment in 2 weeks time. If there are any problems in the interim, the patient will contact our clinic for an earlier appointment. For all medical and psychiatric emergencies, the patient go to the nearest emergency room. Diagnosis Bipolar 1 disorder, current episode depressed, severe, without psychotic features Generalized anxiety disorder Plan As indicated in Dr. Pablo's excellent note. Ravindra Bray MD, MS, [facility] Director Operations Broadcast, Department of Psychiatry AND Behavioral Sciences [facility] Chief, Section for Geriatric Psychiatry [facility] chef under, [facility] [place] at [facility] P: [phone] F: [phone] [email or web address] Pager: [phone] PROGRESS Observed: 04/22/2018 Status: COMPLETED Source: [facility] 2:40 PM [facility] [place] REPOSITORY O ID: [id number] Author: Ash (Res) Jason Service: (none) Author Type: Resident Type: Progress Notes Filed: 04/23/2018 10:16 AM Note Text: [facility] Security And Privacy Consultant Clinic PROGRESS NOTE PATIENT: Radha Lancaster MRD: [id number] DATE: April 22, 2018 IDENTIFYING INFORMATION: Radha is a 57 year old female with a history of bipolar disorder AND conversion disorder. CHIEF COMPLAINT: I was depressed this Thursday AND I feel groggy all of the time SUBJECTIVE: Radha seems cheerful today, with broad affect. She reports having issues with depression over the past two weeks AND feels overly sedated. it?s worse in the mornings AND she?s confused about which medications she?s supposed to take, despite it being laid out for her each session, during interim phone calls, by her , via printed patient instructions with a checklist for her medications listed by time of day, AND is given to her by her pharmacy in packaging that separates her medications by day of the week AND time of administration (day vs night). Despite approximately 5 attempts, she?s still anxious about trying to figure out which medications are sedating AND cannot identify her seroquel. Showed her pictures of seroquel tablets AND explained to her that of her 3 QHS medications, she can eliminate the half tablet from consideration as it is her Zyprexa (placed in her regimen in error anyways, she?s supposed to have 10 mg QHS but the pharmacy has been giving her BID dosing. Splits 20 mg tablet in half based on rx from inpatient provider). I called her pharmacy, with herself AND her in the room to clarify her regimen AND assert that she is not to be given psychotropics by other providers. Recalls mostly depression occuring over the weekends, characterized by anhedonia, sad mood, tearfullness, low self worth appraisal, hypersomnolence, AND difficulty concentrating. Remarks she has gained weight over the past year AND is concerned about her metabolic profile. Despite seeming so disorganized in thought AND emotion, she appears to have good, if not above average, attendance to grooming AND hygiene. Her also states he assists AND will continue to assist with her care. Dynamic is still present, where she tests boundaries by requesting changes in her regimen or is confused by such (despite requesting), while he reassures her AND then directs her. He?s requesting that we taper her off of one of her antipsychotics based [facility]. Also asked about Topiramate. I reminded him that we had discussed this during the first appointment AND that it was I who had brought it up, followed by my attending Dr Bray (when staffing the patient). He feels more ready now to agree to plan. I explained that her medicaiton regimen has unnecessary redundancy AND increased adverse effects. For next session, she would require cognitive testing via Cognivue. Likely, she may not complete the short screening procedure. Medication side effects: oversedation VITAL SIGNS: There were no vitals taken for this visit. LAB DATA: ordered A1c, TSH, AND Lipid panel on 04/12/2018, but not in system. Will update when labs acquired. MENTAL STATUS EXAMINATION: Appearance: appears stated age, ,Female, well developed, well nourished, normal clothing, grooming is Within Normal Limits, attends to her appearance well AND appears well kept. Not disheveled or haphazard in her grooming or choice of attire. Activity: Normal , Steady gait, normal muscle tone, Behavior: Cooperative AND very dependent., Good eye contact, Speech: spontaneous , Normal rate, Normal volume, Clear, repeats herself often Mood: Depressed Affect: Inappropriate to content, Constricted but content appearing, same smile maintained throughout the session Thought Process: perseveration Thought Content: fixated on clarifying medication regimen, despite multiple attempts to do so with her. Appears helpless AND views herself as such w/ limited self efficacy , No suicidal ideation, intent or plan in session. Reports some passive ideation prior to coming in., No homicidal ideation, intent or plan., Obsessions: jregarding health AND medications Cognition: Orientation: Person, Place, Time and Situation Attention: Impaired Concentration: Impaired Language: Intact naming, Intact repetition Estimated Intelligence: Average Memory: Severly Impaired recent memory, Mildly Impaired remote memory Abstraction: Impaired Insight: poor Judgement: poor RATING SCALES: PSYCHOLOGY SCREENING/TESTING: PHQ-9= 16, ((10-14 moderate depression). MICHAEL-7 = 12 ((11-15) moderately severe anxiety). (positive is MICHAEL=8 or PHQ=9) The screen was Positive for anxiety and depression. Positive screen was discussed with the patient with the following plan: continue ongoing treatment continue to monitor. The patient verbalized understanding of above plan. RISK ASSESSMENT: low to moderate for suicidal behaviors IMPRESSION: Has affective disorder that impairs her ability to function, however, it appears she's affected by her polypharmacy (iatrogenic) or personality traits leading to consistent cycling of decompensations requiring assistance AND healthcare intervention. She's very dependent AND emotionally labile. 1. Unspecified Bipolar Disorder 2. Generalized Anxiety Disorder 3. 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 Continue current medication regimen. Called her pharmacy in session, with both her AND her present to clarify her medication regimen. Explained it to her multiple times, while also showing her pictures of Quietiapine tablets so that she could identify them. Encouraged her to drop by her pharmacy to have them show her which tablet is Seroquel. Her option is to cut her current medication in half or have the pharmacy give her 50 mg. As usual, I printed off a list of her medications with the times of administration AND check boxes to document when she takes the medications to help her keep track. However, she repeatedly asked about the same medications AND then called the office twice within a few minutes of each other (leaving voicemails) asking about her medication regimen. I then called her pharmacy, the second time AND left a message clarifying her medication regimen AND to specify that I, with a supervising physician Dr Bray, am her current psychiatric provider AND that her mail order medication packets shouldn't include medications from other providers. 2. Medications: Decreased Seroquel to 50 mg QHS. Rest medications kept the same. See AUG 3. Labs: A1c, Lipids, AND TSH PDMP website checked and validated. All prescriptions have been APPROPRIATELY filled. No suspicious activity was identified. 04/22/2018 by Ash Gomez DO 4. Patient understands and agrees with the plan: Yes Return in 4 weeks[address] patient with Dr. Bray Electronically signed by Ash Gomez DO April 22, 2018 2:40 PM PROGRESS Observed: 03/18/2018 Status: COMPLETED Source: SIMS 2:36 PM CLINIC OTHER CAMPUS REPOSITORY O ID: [id number] Author: Ravindra Bray Service: (none) Author Type: Physician Type: Progress Notes Filed: 03/19/2018 9:40 AM Note Text: Teaching Attending Note? I evaluated the patient and personally participated in the fair components. I agree with the resident's findings and plan as documented and have discussed the case and management of the patient's care with the resident. ? I confirm the fair elements of the history. I confirm the fair elements of the mental status examination. I reviewed the findings with the resident. ? I confirm the diagnosis and agree with the resident's plan of care. Please see resident's note for furthur details. ? The patient was seen with her . The patient was pleasant and cooperative with the examination. She reports that her mood is more stable. Patient reports that her energy is better and she is feeling less tired during the daytime. The patient's also feels that the patient is doing better. She denies any symptoms of posttraumatic stress disorder. The patient does not report any active suicidal or homicidal thoughts or plans. She does not report any use of alcohol, tobacco or illicit drugs. Patient?denies any paranoid thoughts or delusions. She denies any auditory or visual hallucinations. Patient's cognitive functioning is fair. Her insight and judgment are fair. Patient agrees to comply with the treatment plan. ? PHQ-9= 0 (last 10) MICHAEL-7 = 1 (last 17)? Current Outpatient Prescriptions: QUEtiapine (SEROQUEL) 100 mg tablet Take 1 tablet by mouth daily at bedtime. Disp: 30 tablet Rfl: 0 OLANZapine (ZYPREXA) 10 mg tablet Take 1 tablet by mouth daily at bedtime. Disp: 30 tablet Rfl: 0 lamoTRIgine (LAMICTAL) 200 mg tablet Take 1 tablet by mouth twice daily. Disp: 60 tablet Rfl: 0 DULoxetine (CYMBALTA) 60 mg capsule Take 1 capsule by mouth once daily. Disp: 30 capsule Rfl: 0 buPROPion XL (WELLBUTRIN XL) 150 mg 24 hr tablet Take 1 tablet by mouth once daily. Disp: 30 tablet Rfl: 0 oxybutynin (DITROPAN) 5 mg tablet Disp: Rfl: loratadine (CLARITIN) 10 mg tablet Take 1 tablet by mouth once daily. Disp: 30 tablet Rfl: 2 atorvastatin (LIPITOR) 20 mg tablet Take 20 mg by mouth once daily. Disp: Rfl: oxybutynin XL (DITROPAN XL) 5 mg 24 hr tablet Take 5 mg by mouth once daily. Disp: Rfl: No current facility-administered medications for this visit. ? Patient will continue on Seroquel 100 mg by mouth daily at bedtime, Zyprexa 10 mg by mouth twice a day, Lamictal 200 mg by mouth twice a day, Cymbalta 60 mg by mouth once daily and Wellbutrin XL 150 mg by mouth once daily. The patient will return for a follow-up appointment in 4 weeks' time. If there are any issues in the interim, the patient or her will contact our clinic for another appointment. For any medical or psychiatric emergencies, the patient will go to the nearest emergency room. ? Diagnosis Bipolar 1 disorder, most recent episode manic, with mixed and psychotic features; Generalized anxiety disorder ? Plan As indicated in 's?excellent note. ? Ravindra Bray MD, MS, DFAP[facility] Director Operations Broadcast, Department of Psychiatry AND?Behavioral Sciences [facility] Chief, Section for Geriatric Psychiatry [facility] chef under, [facility]?at [facility] P: [phone] F: [phone] [email or web address] Pager: [phone] ? ? PROGRESS Observed: 03/18/2018 Status: COMPLETED Source: SIMS 1:35 PM CLINIC OTHER CAMPUS REPOSITORY HNO ID: [id number] Author: Ash Gomez Service: (none) Author Type: Resident Type: Progress Notes Filed: 03/19/2018 9:40 AM Note Text: [facility] Security And Privacy Consultant Clinic PROGRESS NOTE PATIENT: Radha Lancaster MRD: [id number] DATE: March 18, 2018 IDENTIFYING INFORMATION: Radha is a 57 year old female with a history of bipolar disorder AND PTSD. CHIEF COMPLAINT: You wont believe it, I am doing better SUBJECTIVE: Radha presents with her , reporting significant improvement. While providing her narrative for the interim, she's pressured in speech and changes topics often (flight of ideas), but this is present also when she's depressed and could be extant at her baseline. She reports a dramatic improvement in mood and has been seeking out more social engagement through events at her yazidism, volunteering, and choir. She has also been maintaining her routine and believes it has been very helpful for her. Her brings up that she can have a decompensation soon after she feels good, and warned her against being too nonchalant about it. Otherwise, he reports sustained improvements and significant progress in her affectivity and organization. Also reports taking one of the evening medications earlier, near dinner time. Other notes: -During her depressed state, she has more of an anxious depression -reinforced her maintenance of routine and encouraged she document when she has adverse effects from medications, such as sedation -concerned that she may be hypomanic, but demonstrates some features while depressed also (mixed presentation?) -reports that she is hardly taking any of her ativan anymore (from another provider) -medications: I have prescribed a reduced dose of Seroquel last appointment and she is now taking it (100 mg down from 200 mg). However, I have also been prescribing her only 10 mg of Zyprexa to be taken QHS. Her pharmacy, [facility], has been filling scripts from Dr Marie which includes an extra 10 mg dose in the morning, so each day she is taking Zyprexa 10 mg BID (20 total per day) Medication side effects: mild sedation. VITAL SIGNS: There were no vitals taken for this visit. LAB DATA: none this appointment MENTAL STATUS EXAMINATION: Appearance: appears stated age, ,Female, well developed, well nourished, generally normal clothing with colorful fall themed hat, grooming is Within Normal Limits Activity: Normal , Steady gait, normal muscle tone, Behavior: Cooperative, Good eye contact, rambunctious demeanor Speech: spontaneous , Pressured rate, Normal volume, Clear, Mood: Elevated and but not expansive or euphoric Affect: appropriate to content Thought Process: circumstantial Thought Content: glad to be feeling better, reports adequate sleep and ability to function in multiple domains, No suicidal ideation, intent or plan., No homicidal ideation, intent or plan., Coherent Cognition: Orientation: Person, Place, Time and Situation Attention: Impaired Concentration: Impaired Language: Intact naming, Intact repetition Estimated Intelligence: Average Memory: Intact recent memory, Intact remote memory Abstraction: Intact Insight: fair Judgement: fair RATING SCALES: PSYCHOLOGY SCREENING/TESTING: PHQ-9= 0, ((0-4) minimal depression). MICHAEL-7 = 1 ((0-5) mild anxiety). (positive is MICHAEL=8 or PHQ=9) The screen was Negative for anxiety and depression. No follow up needed. RISK ASSESSMENT: low for suicidal or externalizing behaviors IMPRESSION: 1. Unspecified Bipolar Disorder 2. Generalized Anxiety Disorder 3. 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 Continue treatment as usual, currently working on maintaining and documenting a routine and then will apply behavioral principles for problems as they arise 2. Medications: continued current regimen (see Patient instructions below) 3. Labs: none this appointment PDMP website checked and validated. All prescriptions have been APPROPRIATELY filled. No suspicious activity was identified. 03/18/2018 by Ash Gomez, DO Patient instructions A. Wake up at the same time every morning record what time that you wake up in the morning here ? B. Follow your morning routine in the same order and in the same way every morning. Try to stay out of bed once it is made, until 8 PM. C. Shaggy underneath each medication after you have taken it DON'T EVEN THINK ABOUT THE REST OF THE DAY BEFORE YOU FINISH YOUR MORNING ROUTINE. ? 1. Wake up 2.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 Interference: disorganization. Thought blocking. Racing thoughts. Devoid of delusions. Cognitive distortions. Cognition: Orientation: Person, Place and Situation Attention: Impaired Concentration: Impaired Language: Intact naming, Intact repetition Estimated Intelligence: Fair Memory: Moderately Impaired recent memory, Moderately Impaired remote memory Abstraction: Impaired Insight: poor Judgement: poor LABS: Needs A1c, lipid panel, TSH. RATING SCALES: PHQ9, GAD7, and mood disorder questionnaire. Chart will be updated with results. RISK ASSESSMENT: Low for suicidal or homicidal behavior at this time. Is future oriented, good mood, and has adequate support. IMPRESSION: 1. Mood Disorder Bipolar I Disorder, Most Recent Episode Mixed Unspecified 2. Anxiety Disorder Generalized Anxiety Disorder 3. 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 Learning Disorder dyslexia 5. 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 Get established. Review and score the psychiatric measurement scales that she has filled out or is still in the process of doing so: PHQ-9, MICHAEL-7, Mood disorder questionnaire, Executive Skill Questionnaire for Adults. 2. Medication changes: Discontinued Dextromethorphan, Cymbalta CR, Wellbutrin. Continued Lamictal 200 mg BID, Zyprexa 10 mg BID, and increased Seroquel to 300 mg QHS from 200 mg. 3. Labs: get metabolic labs: A1c, lipid panel, TSH PDMP website checked and validated. All prescriptions have been APPROPRIATELY filled. No suspicious activity was identified. 02/05/2018 by Ash Gomez DO 4. Patient understands and agrees with the treatment plan: Yes Return in 2 week(s). For next appointment, will set basic goals regarding her organization skills, targeting her executive dysfunction. Moreover, may try to simplify her medication regimen further and discuss discontinuation or taper of ativan. Also, before the next appointment I will send her instructions for lab draws and a cognitive screen for executive dysfunction. Will additionally have to set ground rules for the clinic, she has significant time management difficulties associated with dyschronometria (could not gauge the passage of time). Will clarify that appointments are 45 minutes in length for working on goals, rest is for staffing and scheduling. Her and her will need to stay within certain areas of the clinic, such as the lobby, my shared office, restrooms, and scheduling desk area near exit. They both had a tendency to wander and demonstrated poor boundaries. This could lead to privacy violations and was disruptive to other patients' scheduled appointments. Discussed patient with Dr. Bray. Electronically signed by Ash Gomez DO February 05, 2018 11:36 AM Teaching Attending Note I evaluated the patient and personally participated in the fair components. I agree with the resident's findings and plan as documented and have discussed the case and management of the patient's care with the resident. I confirm the fair elements of the history. I confirm the fair elements of the mental status examination. I reviewed the findings with the resident. I confirm the diagnosis and agree with the resident's plan of care. Please see resident's note for furthur details. The patient was seen with her . The patient was pleasant and cooperative with the examination. She still reports mood swings. The patient's is very stressed about his 's illness. The patient also reports symptoms of anxiety. The patient denies any symptoms of posttraumatic stress disorder. The patient does not report any suicidal thoughts or plans. There is no evidence for any substance use disorder at this time. She denies any paranoid thoughts or delusions. The patient denies any auditory or visual hallucinations. Her cognitive functioning is fair. The patient's insight and judgment are fair. She agrees to comply with the treatment plan. We had a long discussion with the patient and her regarding the diagnosis and treatment plan. Given the complicated medication regimen that she is taking and the fact that the patient is still having mood instability, we have decided to streamline and optimize her medication regimen. Patient and her are on board with this plan. We will discontinue the Wellbutrin, the dextromethorphan and the Cymbalta. We will increase the dose of Seroquel to 300 mg at bedtime. Patient will continue on Zyprexa 10 mg by mouth twice a day and Lamictal 200 mg by mouth twice daily. The patient will return for a follow-up appointment in 2 weeks' time. There are any issues in the interim, the patient on her will contact our clinic for another appointment. Current Outpatient Prescriptions: QUEtiapine (SEROQUEL) 300 mg tablet Take 1 tablet by mouth daily at bedtime. Disp: 30 tablet Rfl: 0 lamoTRIgine (LAMICTAL) 200 mg tablet Take 1 tablet by mouth twice daily. Disp: 60 tablet Rfl: 2 OLANZapine (ZYPREXA) 20 mg tablet 1/2 tab po bid (am, 5p) Disp: 30 tablet Rfl: 2 atorvastatin (LIPITOR) 20 mg tablet Take 20 mg by mouth once daily. Disp: Rfl: oxybutynin XL (DITROPAN XL) 5 mg 24 hr tablet Take 5 mg by mouth once daily. Disp: Rfl: oxybutynin (DITROPAN) 5 mg tablet Disp: Rfl: loratadine (CLARITIN) 10 mg tablet Take 1 tablet by mouth once daily. Disp: 30 tablet Rfl: 2 No current facility-administered medications for this visit. WBC (thou/cmm) Date Value 12/15/2017 7.54 RBC (mil/cmm) Date Value 12/15/2017 4.56 Hemoglobin (g/dL) Date Value 07/15/2015 12.6 HGB (g/dL) Date Value 12/15/2017 13.7 Hematocrit (%) Date Value 12/15/2017 41.3 MCV (fl) Date Value 12/15/2017 90.6 MCH (pg) Date Value 12/15/2017 30.0 MCHC (%) Date Value 12/15/2017 33.2 Platelet Count (thou/cmm) Date Value 12/15/2017 196 MPV (fl) Date Value 12/15/2017 11.4 Glucose (mg/dL) Date Value 12/15/2017 103 (H) BUN (mg/dL) Date Value 12/15/2017 16 Creatinine (mg/dL) Date Value 12/15/2017 0.85 Sodium (mEq/L) Date Value 12/15/2017 138 Potassium (mEq/L) Date Value 12/15/2017 4.4 Chloride (mEq/L) Date Value 12/15/2017 102 CO2 (mEq/L) Date Value 12/15/2017 31 Protein, Total (g/dL) Date Value 12/15/2017 7.7 Albumin (g/dL) Date Value 12/15/2017 3.6 Calcium (mg/dL) Date Value 12/15/2017 9.1 Alkaline Phosphatase (U/L) Date Value 12/15/2017 90 Bilirubin, Total (mg/dL) Date Value 12/15/2017 0.4 AST (U/L) Date Value 12/15/2017 14 ALT (U/L) Date Value 12/15/2017 22 MANUEL (no units) Date Value 05/27/2017 SEE BELOW Rheumatoid Factor (IU/mL) Date Value 05/27/2017 <10.0 URINALYSIS Specific [place], Ur Date Value Ref Range Status 12/15/2017 1.021 1.005 - 1.030 Final 12/15/2017 1.021 1.005 - 1.030 Final Glucose, Urine Date Value Ref Range Status 12/15/2017 NEGATIVE Negative mg/dL Final Bilirubin, Urine Date Value Ref Range Status 12/15/2017 NEGATIVE Negative Final Ketones, Urine Date Value Ref Range Status 12/15/2017 NEGATIVE Negative mg/dL Final Hemoglobin/Blood,Ur Date Value Ref Range Status 10/14/2017 moderate Neg Final Protein, Urine Date Value Ref Range Status 12/15/2017 NEGATIVE Negative mg/dL Final Urobilinogen, Urine Date Value Ref Range Status 12/15/2017 0.2 0.0 - 1.0 EU/dL Final Leukocytes Date Value Ref Range Status 10/14/2017 neg Neg Final WBC, Urine Date Value Ref Range Status 12/15/2017 8.5 (H) 0.0 - 5.0 /hpf Final Diagnosis Bipolar 1 disorder, most recent episode manic, with mixed and psychotic features; generalized anxiety disorder Plan As indicated in Dr. Gomez's excellent note. Ravindra Bray MD, MS, DFAPA Director Operations Broadcast, Department of Psychiatry AND Behavioral Sciences [facility] [place] General Chief, Section for Geriatric Psychiatry [facility] chef under, [facility] [place] at [facility] P: [phone] F: [phone] [email or web address] Pager: [phone] PLAN OF CARE Observed: 12/29/2017 Status: COMPLETED Source: [facility] 3:45 PM CLINIC OTHER CAMPUS REPOSITORY HNO ID: [id number] Author: Cindy Goodman (Pharmacist) Service: Pharmacy Author Type: Pharmacist Type: Plan of Care Filed: 12/29/2017 4:39 PM Note Text: PHARMACY DISCHARGE MEDICATION COUNSELING PATIENT NAME: Radha Lomax DATE of SERVICE: December 29, 2017 TIME of SERVICE: December 29, 2017 The patient accepted medication counseling for the discharge medications below. The patient was given the opportunity to ask questions regarding medication indication, interactions and side effects. Discharge Medications: Discharge Medication List as of 12/29/2017 2:59 PM START taking these medications loratadine (CLARITIN) 10 mg tablet Take 1 tablet by mouth once daily.Print RX, Disp-30 tablet, R-2 OLANZapine (ZYPREXA) 20 mg tablet 1/2 tab po bid (am, 5p)Print RX, Disp-30 tablet, R-2, Long-term QUEtiapine (SEROQUEL) 200 mg tablet Take 1 tablet by mouth daily at bedtime.Print RX, Disp-30 tablet, R-2, Long-term CONTINUE these medications which have CHANGED lamoTRIgine (LAMICTAL) 200 mg tablet Take 1 tablet by mouth twice daily.Print RX, Disp-60 tablet, R-2, Long-term dextromethorphan (DELSYM) 30 mg/5 mL liquid Take 10 mL by mouth daily at bedtime.Med Update buPROPion XL (WELLBUTRIN XL) 150 mg 24 hr tablet Take 1 tablet by mouth once daily.Print RX, Disp-30 tablet, R-2, Long-term CONTINUE these medications which have NOT CHANGED atorvastatin (LIPITOR) 20 mg tablet Take 20 mg by mouth once daily.Historical Med, Long-term DULoxetine (CYMBALTA) 60 mg capsule Take 1 capsule by mouth once daily.Print RX, Disp-30 capsule, R-2, Long-term oxybutynin XL (DITROPAN XL) 5 mg 24 hr tablet Take 5 mg by mouth once daily.Historical Med, Long-term STOP taking these medications carBAMazepine (TEGRETOL) 200 mg tablet Comments: Reason for Stopping: clonazePAM (KLONOPIN) 1 mg tablet Comments: Reason for Stopping: FLUoxetine (PROZAC) 20 mg capsule Comments: Reason for Stopping: LORazepam (ATIVAN) 0.5 mg tab Comments: Reason for Stopping: hydrOXYzine HCl (ATARAX) 50 mg tablet Comments: Reason for Stopping: Patient verbalizes understanding of counseling. Signature: CINDY GOODMAN, PHARMACIST Pager: [phone] Date: December 29, 2017 Time: 4:38 PM SOCIAL WORK Observed: 12/29/2017 Status: COMPLETED Source: [facility] 3:45 PM [facility] OTHER [place] REPOSITORY HNO ID: [id number] Author: TORITO Yin (Sw) Service: (none) Author Type: Stablehand Type: Social Work Filed: 01/01/2018 9:42 AM Note Text: BEHAVIORAL HEALTH SOCIAL WORK PROGRESS NOTE SERVICE DATE: 01/01/2018 SERVICE TIME: 9:41 AM ALVINA was informed that patient has been scheduled for [facility] on January 28 at 3:00 pm. Patient has confirmed appointment with Clinic. SIGNATURE: TORITO Yin PATIENT NAME: Radha Lomax DATE: January 01, 2018 TIME: 9:41 AM PLAN OF CARE Observed: 12/29/2017 Status: COMPLETED Source: [facility] 2:03 PM [facility] OTHER CAMPUS REPOSITORY HNO ID: [id number] Author: Yvonne Griffith (Bilingual Speech Therapist) Service: (none) Author Type: (none) Type: Plan of Care Filed: 12/29/2017 2:04 PM Note Text: Pharmacy Discharge Medication Service: This patient has elected to receive their discharge prescriptions through the [facility] Bedside Prescription Delivery program. The prescriptions are currently being processed. Patient has a copay total of 44.20$, I'm unsure if Patient has payment for her Rx's, let me know if she would like me to deliver or she can picking crew supervisor in the Outpatient Pharmacy. Please contact me with any questions or updates to the patient's discharge medications. Yvonne Griffith (Zebit) DCT Contact Info: [phone] PLAN OF CARE Observed: 12/29/2017 Status: COMPLETED Source: [facility] 2:01 PM [facility] REPOSITORY HNO ID: [id number] Author: Yvonne Griffith (Zebit) Service: (none) Author Type: (none) Type: Plan of Care Filed: 12/29/2017 2:02 PM Note Text: EXTRACTIVE METALLURGIST BEDSIDE DELIVERY SURVEY 1. Patient to use [facility] Bedside Delivery - YES 2. If fax, patient would like us to fax prescriptions to Pharmacy of choice a. Pharmacy: b. Location: c. Phone: 3. Insurance card on file - YES 4. Credit card for payment - YES Wellbutrin XL 150 mg Zyprexa 20 mg Lamictal 200 mg Seroquel 200 mg Contact Yvonne at [phone] with questions prior to discharge SOCIAL WORK Observed: 12/29/2017 Status: COMPLETED Source: [facility] 2:00 PM [facility] REPOSITORY HNO ID: [id number] Author: TORITO Yin (Sw) Service: (none) Author Type: Stablehand Type: Social Work Filed: 12/29/2017 2:02 PM Note Text: BEHAVIORAL HEALTH SOCIAL WORK DISCHARGE NOTE SERVICE DATE: 12/29/2017 SERVICE TIME: 2:01 PM PATIENT'S DISCHARGE PLAN: Discharge Disposition Correction Referral Information [facility] Referral Information Prison Homeless Detention Referral Information Crisis Stabilization Unit Acute Care Facility Referral Information Assisted Living Facility Referral Information Home Care Agency Referral Information Manager Cleaning Guardian Psychiatry Follow-Up Appointment Psychiatrist Name: ([facility]) Additonal Instructions: (Call for appointment [phone] option [phone]) Medical Follow-Up Appointment Counselor Referral Information Case Management Referral Information Family Psychoeducational ([facility]) Follow-Up Appointment Removable Prosthodontist Chemical Dependency Care - Intensive Outpatient/Partial Hospital Program Behavioral Health Care - Intensive Outpatient/Partial Hospital Program ECT Treatment/Follow-Up Additional Discharge Information Additional Discharge Resources: ([facility] Suicide Prevention Helpline [phone]) Patient/Money Market Clerk Agreeable With Discharge Plan: Yes FREEDOM OF CHOICE EXPLAINED? N/A Patient/Money Market Clerk Given/Explained Medicare Discharge Notice (IM letter): Not Applicable TRANSPORTATION ARRANGEMENTS: Car Transport by family PRESCRIPTIONS FILLED PRIOR TO DISCHARGE: No, patient/marketing development representative given paper scripts ADDITIONAL NOTES: Sw talked with patient regarding discharge and she is agreeable at this time. Patient will return home transported by her . Patient will follow up as outlined above. Follow up provider has electronic access to clinicals SIGNATURE: TORITO Yin PATIENT NAME: Radha Aguirre DATE: December 29, 2017 TIME: 2:00 PM ALLIED HEALTH Observed: 12/29/2017 Status: COMPLETED Source: [facility] 12:02 PM [facility] REPOSITORY HNO ID: [id number] Author: Ama (Therapist) Mylene Crain Service: Art Therapy Author Type: Therapist Type: Allied Health Filed: 12/29/2017 12:04 PM Note Text: PROGRESS NOTE BEHAVIORAL HEALTH Topic of Note: Group Participation SERVICE DATE: 12/29/2017 SERVICE TIME: 9:45-11:15 -A-Pt stated that they are feeling excited. Pt presented with moderate level of energy and appropriate affect. Pt actively participated in activity and discussion. Pt. is very concrete. Pt. was uncomfortable with her composition until she found a birthday cake and knife to cut it in her picture. -I- Facilitated group re: Letting go and forgiveness.Therapist provided opportunity to express thoughts and feelings. -E- Pt. could benefit from continued support and talking about her thoughts and feelings in group. SIGNATURE: Ama Crain LPC PATIENT NAME: Radha Aguirre DATE: December 29, 2017 TIME: 12:02 PM PAGER/CONTACT #: CONSULT PROG Observed: 12/29/2017 Status: COMPLETED Source: [facility] 10:34 AM [facility] OTHER [place] REPOSITORY HNO ID: [id number] Author: Andrae Cox Service: General Internal Medicine Author Type: Physician Type: Consult Progress Note Filed: 12/29/2017 10:34 AM Note Text: INPATIENT PROGRESS NOTE SERVICE DATE: 12/29/2017 SERVICE TIME: 10:34 AM Subjective CHIEF COMPLAINT: Suicidal ideation PRIMARY SERVICE: Psych INTERVAL HPI: no changes medically Current hospital medications: OLANZapine 10 mg tab(s) (ZyPREXA) 10 mg ORAL BID /4p loratadine 10 mg tab(s) (CLARITIN) 10 mg ORAL DAILY albuterol HFA 90 mcg/actuation 2 Puff (PROVENTIL HFA, VENTOLIN HFA) 2 Puff INHALATION q [address] 40 mg tab(s) (PROTONIX) 40 mg ORAL DAILY (6 AM) Ipratropium [place] 1 [place] nasal spray (ATROVENT) 1 [place] INTRANASAL TID OLANZapine 5 mg tab(s) (ZyPREXA) 5 mg ORAL AT BEDTIME QUEtiapine 200 mg tab(s) (SEROquel) 200 mg ORAL AT BEDTIME lamoTRIgine 200 mg tab(s) (LaMICtal) 200 mg ORAL BID sodium chloride 0.65 % 2 [place] (AYR, OCEAN) 2 [place] EACH NOSTRIL PRN docusate sodium 100 mg cap(s) (COLACE) 100 mg ORAL BID PRN buPROPion XL 150 mg tab(s) (WELLBUTRIN XL) 150 mg ORAL DAILY dextromethorphan 60 mg oral liquid ER (DELSYM) 60 mg ORAL AT BEDTIME Lip Protectant with Sunscreen SPF 15 1 application Stick (Blistex) 1 application TOPICAL PRN benzocaine-menthol 1 Lozenge (CEPACOL) 1 Lozenge MUCOUS MEMBRANE (TOPICAL MOUTH AND THROAT) q 2 H PRN traZODone 100 mg tab(s) (DESYREL) 100 mg ORAL HS PRN acetaminophen 650 mg tab(s) (TYLENOL) 650 mg ORAL q 6 H PRN aluminum-magnesium hydroxide-simethicone 200-200-20 mg/5 mL 30 mL (MAALOX,MYLANTA,MAG-AL PLUS) 30 mL ORAL q 4 H PRN magnesium hydroxide 400 mg/5 mL 30 mL (MOM) 30 mL ORAL DAILY PRN OLANZapine orally disintegrating 5 mg tab(s) (ZyPREXA ZYDIS) 5 mg ORAL q 4 H PRN DULoxetine 60 mg cap(s) (CYMBALTA) 60 mg ORAL DAILY tolterodine ER 2 mg cap(s) (DETROL LA) 2 mg ORAL AT BEDTIME atorvastatin 20 mg tab(s) (LIPITOR) 20 mg ORAL AT BEDTIME Objective PHYSICAL EXAM: BP 138/64 Pulse 83 Temp (Src) 98.1 (Oral) Resp 20 Ht 5' 2.992 (1.60m) Wt 156 lb (70.8kg) SpO2 95% BMI 27.64 kg/(m2). GENERAL: Alert, no distress, cooperative LUNGS: Lungs clear to auscultation, Good diaphragmatic excursion CARDIAC: Normal S1 and S2; no rubs, murmurs, or gallops ABDOMEN: Abdomen soft, non-tender, BS normal, No masses or organomegaly DATA: Diagnostic tests reviewed for today's visit: No new labs Assessment/Plan Principal Problem: Suicidal ideation POA: Yes Assessment AND Plan: psych Active Problems: Slow transit constipation POA: Yes Assessment AND Plan: stable Tension type headache POA: Yes Assessment AND Plan: no changes Nasal congestion POA: No Assessment AND Plan: cont meds Chest congestion POA: No Assessment AND Plan: stable Resolved Problems: * No resolved hospital problems. * Discussed with nursing SIGNATURE: Andrae Cox MD PATIENT NAME: Radha Lomax DATE: 12/29/2017 TIME: 10:34 AM PAGER: NURSING PROG Observed: 12/29/2017 Status: COMPLETED Source: [facility] 10:00 AM [facility] OTHER CAMPUS REPOSITORY O ID: [id number] Author: Izzy (Rn) JOHNIE Murphy Service: Behavioral Health Author Type: Registered Nurse Type: Nursing Progress Note Filed: 12/29/2017 3:26 PM Note Text: Nursing Progress Note Patient Name: Radha Lomax Patient Location: [place] [address] [address]* Daily Note: vss, middle aged WF, well known to staff. Remains somewhat anxious, restless, med compliant, contracts for safety. Speech pressured but appropriate. Hopeful for discharge today. archana po well. Contracts for safety. denies SI, HI, AVH. q 15 minute routine safety checks maintained throughout shift, support given 1520. Pt and given dc instructions , scripts filled here by justina. State they have no questions. f/up to be scheduled at resident clinic by patient and . Verbalize understanding. To front entrance accompanied by spouse. Home by car This note was completed by: JOHNIE Chavez Observed: 12/29/2017 Status: COMPLETED Source: [facility] 12:00 AM CLINIC OTHER CAMPUS REPOSITORY [facility] ID: [id number] Author: Ralph Marie Service: Psychiatry Author Type: Physician Type: Discharge Summaries Filed: 12/31/2017 8:33 PM Note Text: [facility] - Discharge Summary PATIENT NAME: RADHA LOMAX CSN: [id number] DATE OF : 1960 SEX/AGE: F/57 PATIENT TYPE: [place] [facility] [place]: [facility] [place] ADMIT DATE: 12/15/2017 DISCHARGE DATE: 12/29/2017 IDENTIFICATION: This patient is a 57-year-old, , female. CHIEF COMPLAINT/REASON FOR ADMISSION: This patient was admitted to the hospital because of problems with depression and suicidal ideation. This patient is reported to have problems with anxiety, obsessionality, and panic symptoms. This patient has problems with psychotic symptoms and disorganized confused thinking. HISTORY OF PRESENT ILLNESS: This patient reports a lifelong history of problems of depression and anxiety. The patient has carried the diagnosis of major depression and more recently has been given the diagnosis of bipolar disorder. This patient has been treated in the past with various medications including Lamictal Tegretol, and lithium. The patient has had multiple antidepressant medications throughout her life time. More recently, the patient has been treated with the medications, Prozac, Cymbalta, and Wellbutrin. This patient was admitted to [facility] starting in March 2015. The patient was admitted to [facility] in approximately July 2015. She was again admitted in October 2016 and again in March 2017. This patient appears to have a pattern of getting medication changes, but then over the next several months for unknown reasons, going off these medications or having them greatly modified. The patient then becomes anxious, sad, and depressed, and is referred for inpatient psychiatric care. The patient's most recent psychiatric admission to the hospital was in approximately May 2017. The patient was treated successfully and discharged in improved condition. The patient reports that since discharge, she has little memory of her psychiatric care. The patient admits that she has had multiple medication changes, although was unable to describe the changes or the reasons for these changes. She reports that the medication, Wellbutrin which had been previously prescribed successfully, was discontinued. The patient claims she had a trial of Tegretol and lithium that she was taking previously had been discontinued. The patient reports that the outpatient provider that she was working with discontinued her benzodiazepine treatment. The patient reports that she has had tensions in her relationship with her and even was living in a alf. She returned home within the weeks prior to admission. This patient reports that after leaving her outpatient psychiatric provider that she was receiving medication changes through her primary care physician. The patient admitted that she was having increasing depressive symptoms and was more sad and withdrawn. The patient found it hard to get out of bed. The patient was describing increasing suicidal ideation. Because of this, the patient was referred for inpatient evaluation and treatment. SIGNIFICANT FINDINGS IN LABORATORY STUDIES: Chemistry screening panel: All findings were within normal limits. Hematology screening panel: All findings were within normal limits. Urinalysis testing was read to be within normal limits. Urine drug screen performed during this hospitalization was negative for drugs of abuse. CLINICAL HOSPITAL COURSE: This patient was admitted to [facility]. This patient has had previous admissions to [facility]. The patient has been previously admitted in very depressed state. Initially, the patient presented as quite depressed, withdrawn, unable to arise from bed, and having significant suicidal ideation. This was the usual presentation. The patient was given an additional medication change. In July 2016, the FDA granted Fast Track designation for a combination of Wellbutrin and dextromethorphan as a treatment for Treatment Resistant Depression. Dextromethorphan appears to work by means of the NMDA receptor antagonism mechanism, reminiscent of ketamine. ? Wellbutrin is a 2D6 inhibitor, which causes increased bioavailability of the dextromethorphan. The increased blood level of dextromethorphan makes it useful to treat depression. The FDA-approved medication Nuedexta also utilizes the same mechanism of action. This patient very quickly showed a positive improvement in mood. She appeared to be having great improvement in energy and focus initially. It was felt, however, the patient was showing rapid thinking and significant changeability. It appeared this patient had this before and yet previous treatment appeared to cause the patient to return to depression. It was elected to find a middle way by continuing the antidepressant agents open (instead of stopping them), and by augmenting with mood stabilizing antipsychotic medications. The medication, Zyprexa was added to the medications, Cymbalta and Wellbutrin. The Zyprexa, particularly in combination with the medication, Cymbalta is known to help with bipolar mixed condition in a patient with previous history consistent with attention-deficit hyperactive disorder. Unfortunately, the patient did not appear to sleep well with just the Zyprexa, and the medication, Seroquel was added. The patient appeared to have bias against the Seroquel believing that the Seroquel was causing several unusual and unwitnessed side effects. The patient was having what appeared to be over concern for possible weight gain from all the medications. The medication, Seroquel was given at bedtime, mostly to help with sleep, although over time it was imagined that the Seroquel could be eliminated. This patient was prescribed two antipsychotic agents at time of discharge. There was a plan that the patient when more stabilized, would wean off of one of his current antipsychotic agents. The patient did show positive improvements related to these medication changes. She continued to be free of the devastating depressive symptoms that had occurred before, although same time she had the symptoms of her naman eliminated. The patient in manic state would change her ideas frequently regarding the relationship with her . It was felt that actually her was a good and strong support for her, and many of her ideas were about his lack of support or even abuse seemed distorted and out of touch. The patient would appear to flip flop daily regarding this. Overall, it was felt encouraged that the patient remain in her marriage and explore marriage counseling instead of divorce. She seemed to believe that this was the best route as well. Aftercare plans were solidified. The patient felt that she want to go to a new provider psychiatrically due to tensions in her previous relationship. The patient was discharged in improved condition to be followed up on an outpatient basis. CONDITION ON DISCHARGE: This patient continues to show improvement in mood, energy, and emotional control. The patient claims to feel better and seems brighter during interview. Significant dysphoria and irritability continue, but are improved since admission. This patient also indicates that obsessionality and anxiety are improved and that it is easier to stay on task. This patient denies suicidal ideation, denies hallucinations and delusions, and denies significant problems with medications. LETHALITY ASSESSMENT: At the time of discharge, this patient denied any active self-harm or suicidal thoughts, and described an improvement in mood, emotional control, reactivity, and lability. The patient described knowledge of coping skills for mood regulation and a safety plan. It was felt the chance of self-harm or suicidal behavior after discharge was significantly reduced. DIAGNOSES: DSM AXIS I: 296.64, bipolar 1 disorder, most recent episode, mixed, severe, with psychotic features. Rule out, 296.34, major depressive disorder, recurrent, severe, with psychotic features. 300.02, generalized anxiety disorder. Rule out, 300.00, anxiety disorder, not otherwise specified. 314.9, attention deficit hyperactive disorder, not otherwise specified. AXIS II: V71.09, no diagnosis on axis II. AXIS III: Please refer to past medical history. DISCHARGE AFTERCARE PLANS: Disposition: This patient will be discharged to her own home to live with her spouse. ? Psychiatry Follow-Up Appointment ? Psychiatrist Name [facility] at [facility] ? ? Additonal Instructions Call for appointment [phone] option [phone] ? ? ? Additional Discharge Information ? Additional Discharge Resources [facility] Suicide Prevention Helpline [phone] Medications prescribed to be taken at discharge: atorvastatin (LIPITOR) 20 mg tablet manuel 20 mg by mouth once daily. buPROPion XL (WELLBUTRIN XL) 150 mg 24 hr tablet Take 1 tablet by mouth once daily. dextromethorphan (DELSYM) 30 mg/5 mL liquid Take 10 mL by mouth daily at bedtime. DULoxetine (CYMBALTA) 60 mg capsule Take 1 capsule by mouth once daily. lamoTRIgine (LAMICTAL) 200 mg tablet Take 1 tablet by mouth twice daily. loratadine (CLARITIN) 10 mg tablet Take 1 tablet by mouth once daily. OLANZapine (ZYPREXA) 20 mg tablet 1/2 tab po bid (am, 5p) oxybutynin XL (DITROPAN XL) 5 mg 24 hr tablet Take 5 mg by mouth once daily. QUEtiapine (SEROQUEL) 200 mg tablet Take 1 tablet by mouth daily at bedtime. Ralph Marie MD (Alex) GM:modl /[id number] NURSING PROG Observed: 12/28/2017 Status: COMPLETED Source: [facility] 9:40 PM CLINIC OTHER CAMPUS REPOSITORY HNO ID: [id number] Author: Sinai (Rn) JOHNIE Mars Service: Nursing Author Type: Registered Nurse Type: Nursing Progress Note Filed: 12/29/2017 12:18 AM Note Text: Nursing Progress Note Patient Name: Radha Lomax Patient Location: [id number]/[id number]* Daily Note: Pt dressed in own clothing. Pt calm and cooperative with assessment. Pt denies anxiety, depression, SI/HI, A/VH. Pt still appears to be hyper talkative but less hyperactive. Pt's visited today and previously she did not want him on the unit. Patient was stating that when she got discharged she wanted to get a divorce and move out of their house. This RN asked patient what changed over the weekend and patient states I just can't live without him, the devil was trying to attack us and our marriage. Pt states that they want to go to marriage counseling. Pt states her called her parents to apologize for yelling at them for not coming to the hospital to visit. This RN had to go get patient to take her HS medications because she had fallen asleep, stating that her meds are making her tired. Pt is hopeful to get off seroquel because she states it makes her have an increased appetite and she does not want to gain weight. Pt also thinks that the cough syrup at night is making her more hyper to the point that she can't lay down and go to sleep. Pt states that she gets to go home tomorrow. Pt up on unit and social with other patients. Pt agrees to be safe on the unit and to seek staff with any needs. Will continue to monitor. This note was completed by: Sinai Mars RN ALLIED HEALTH Observed: 12/28/2017 Status: COMPLETED Source: [facility] 5:27 PM CLINIC OTHER CAMPUS REPOSITORY HNO ID: [id number] Author: Ama (Therapist) Mylene Crain Service: Art Therapy Author Type: Therapist Type: Allied Health Filed: 12/28/2017 5:30 PM Note Text: PROGRESS NOTE BEHAVIORAL HEALTH Topic of Note: Group Participation SERVICE DATE: 12/28/2017 SERVICE TIME: 14:40-15:45 -A-Pt stated that they are feeling happy. Pt presented with moderate level of energy and appropriate affect. Pt actively participated in activity and discussion. Pt. talked about her plans for counseling with her .. -I- Facilitated group re: [place] .Therapist provided opportunity to express thoughts and feelings. -E- Pt. could benefit from continued support and talking about her thoughts and feelings in group. SIGNATURE: Ama Crain LPC PATIENT NAME: Radha Lomax DATE: December 28, 2017 TIME: 5:27 PM PAGER/CONTACT #: ALLIED HEALTH Observed: 12/28/2017 Status: COMPLETED Source: [facility] 2:47 PM [facility] OTHER [place] REPOSITORY HNO ID: [id number] Author: Emanuel LivingstonOperator Control RoomMaddie Castillo Service: Spiritual Care Author Type: Operator Control Room Type: Allied Health Filed: 12/28/2017 4:04 PM Note Text: SPIRITUAL CARE Spiritual Care Visit Record Name: Radha Lomax Date: December 28, 2017 Type of Visit: Spiritual Counseling Urgency of Visit: Routine Visit was with (pt, family, other) and name(s): Other Patients on Unit. SPIRITUAL CARE VISIT Spiritual Distress: 6 - Operator Control Room Observation. Spiritual Distress Scale (1-10 with 1= low distress and 10 = highest distress imaginable) Explain Meaning of Rating: Patient continues to have deep questions regarding her future and how to follow God accordingly. Pt has changed mind a couple of times during course of stay in [facility]. 1. Ministry Provided During Visit: Decision-Making Reflection / Assistance Facilitate [employer] Practice Prayer / Meditation / Guided Imagery 2. Themes Discussed During Visit: Being of Value / Self-Love Meaning and Purpose Prayer / Meditation 3. Spiritual Ep[employer] Issues, Beliefs Significant to Healing, or Other Notes: Patient was more centered in thoughts today than before, remains resistant to the idea of caring for self but more open than before. REFERRAL(S ) / TEAM COLLABORATION Referrals: No referral made Notes Regarding Collaboration / Consultation With Care Team: FUTURE SPIRITUAL CARE PLANS Will See: Regularly Follow-up Notes: Informed patient of Operator Control Room availability Operator Control Room Signature: Chaplain Ez To contact the Spiritual Care Department: Please call [phone] or Page the On-Call Operator Control Room at pager [phone] Thank you for the opportunity to be of service. This is an electronically created document. IF PRINTED, PLEASE DO NOT REMOVE FROM THE CHART OR MODIFY PRINTED COPY. ALLIED HEALTH Observed: 12/28/2017 Status: COMPLETED Source: [facility] 2:09 PM [facility] OTHER [place] REPOSITORY HNO ID: [id number] Author: Ama (Therapist) Mylene Crain Service: Art Therapy Author Type: Therapist Type: Allied Health Filed: 12/28/2017 2:11 PM Note Text: PROGRESS NOTE BEHAVIORAL HEALTH Topic of Note: Group Participation SERVICE DATE: 12/28/2017 SERVICE TIME: 9:45-10:50 -A-Pt stated that they are feeling a little shaky but happy. Pt presented with moderate level of energy and appropriate affect. Pt actively participated in activity and discussion. Pt. Did not follow directive to paint how she is feeling. Instead she showed herself walking on a [place] with a river running through it. -I- Facilitated group re: Emotional expression .Therapist provided opportunity to express thoughts and feelings. -E- Pt. could benefit from continued support. SIGNATURE: Ama Crain LPC PATIENT NAME: Radha Lomax DATE: December 28, 2017 TIME: 2:09 PM PAGER/CONTACT #: CONSULT PROG Observed: 12/28/2017 Status: COMPLETED Source: [facility] 10:16 AM [facility] OTHER [place] REPOSITORY HNO ID: [id number] Author: Andrae Cox Service: General Internal Medicine Author Type: Physician Type: Consult Progress Note Filed: 12/28/2017 10:18 AM Note Text: INPATIENT PROGRESS NOTE SERVICE DATE: 12/28/2017 SERVICE TIME: 10:17 AM Subjective CHIEF COMPLAINT: Suicidal ideation PRIMARY SERVICE: Psych INTERVAL HPI: no changes medically Current hospital medications: loratadine 10 mg tab(s) (CLARITIN) 10 mg ORAL DAILY albuterol HFA 90 mcg/actuation 2 Puff (PROVENTIL HFA, VENTOLIN HFA) 2 Puff INHALATION q [address] 40 mg tab(s) (PROTONIX) 40 mg ORAL DAILY (6 AM) Ipratropium [place] 1 [place] nasal spray (ATROVENT) 1 [place] INTRANASAL TID OLANZapine 5 mg tab(s) (ZyPREXA) 5 mg ORAL AT BEDTIME QUEtiapine 200 mg tab(s) (SEROquel) 200 mg ORAL AT BEDTIME lamoTRIgine 200 mg tab(s) (LaMICtal) 200 mg ORAL BID OLANZapine 5 mg tab(s) (ZyPREXA) 5 mg ORAL BID 9a/4p sodium chloride 0.65 % 2 [place] (AYR, OCEAN) 2 [place] EACH NOSTRIL PRN docusate sodium 100 mg cap(s) (COLACE) 100 mg ORAL BID PRN buPROPion XL 150 mg tab(s) (WELLBUTRIN XL) 150 mg ORAL DAILY dextromethorphan 60 mg oral liquid ER (DELSYM) 60 mg ORAL AT BEDTIME Lip Protectant with Sunscreen SPF 15 1 application Stick (Blistex) 1 application TOPICAL PRN benzocaine-menthol 1 Lozenge (CEPACOL) 1 Lozenge MUCOUS MEMBRANE (TOPICAL MOUTH AND THROAT) q 2 H PRN traZODone 100 mg tab(s) (DESYREL) 100 mg ORAL HS PRN acetaminophen 650 mg tab(s) (TYLENOL) 650 mg ORAL q 6 H PRN aluminum-magnesium hydroxide-simethicone 200-200-20 mg/5 mL 30 mL (MAALOX,MYLANTA,MAG-AL PLUS) 30 mL ORAL q 4 H PRN magnesium hydroxide 400 mg/5 mL 30 mL (MOM) 30 mL ORAL DAILY PRN OLANZapine orally disintegrating 5 mg tab(s) (ZyPREXA ZYDIS) 5 mg ORAL q 4 H PRN DULoxetine 60 mg cap(s) (CYMBALTA) 60 mg ORAL DAILY tolterodine ER 2 mg cap(s) (DETROL LA) 2 mg ORAL AT BEDTIME atorvastatin 20 mg tab(s) (LIPITOR) 20 mg ORAL AT BEDTIME Objective PHYSICAL EXAM: BP 127/68 Pulse 81 Temp (Src) 97.5 (Temporal Artery) Resp 18 Ht 5' 2.992 (1.60m) Wt 156 lb (70.8kg) SpO2 98% BMI 27.64 kg/(m2). GENERAL: Alert, no distress, cooperative LUNGS: Lungs clear to auscultation, Good diaphragmatic excursion CARDIAC: Normal S1 and S2; no rubs, murmurs, or gallops ABDOMEN: Abdomen soft, non-tender, BS normal, No masses or organomegaly DATA: Diagnostic tests reviewed for today's visit: No new labs Assessment/Plan Principal Problem: Suicidal ideation POA: Yes Assessment AND Plan: psych Active Problems: Slow transit constipation POA: Yes Assessment AND Plan: stable Tension type headache POA: Yes Assessment AND Plan: no changes Nasal congestion POA: No Assessment AND Plan: stable Chest congestion POA: No Assessment AND Plan: stable Resolved Problems: * No resolved hospital problems. * Discussed with nursing SIGNATURE: Andrae Cox MD PATIENT NAME: Radha Lomax DATE: 12/28/2017 TIME: 10:17 AM PAGER: NURSING PROG Observed: 12/28/2017 Status: COMPLETED Source: [facility] 8:34 AM [facility] OTHER CAMPUS REPOSITORY [facility] ID: [id number] Author: Rachel (Rn) JOHNIE Tran Service: Nursing Author Type: Registered Nurse Type: Nursing Progress Note Filed: 12/28/2017 8:42 AM Note Text: Patient was out to the day bolaños for breakfast and compliant with med pass. She remains manic with racing thoughts, pressured/tangential speech and memory issues. She continues to vacillate between wanting to be with her and wanting to divorce him. Continues to have ideas of reference, that everything she sees means something specific to her or is a sign from God. She keeps every scrap of paper that she finds and puts it her room; telling this RN that each thing means something to her or is telling her something. Denies feeling depressed; she says she is happy with inappropriately bright affect and laughs frequently. Tells this RN that she doesn't like Seroquel and wants to change medication, then in the same sentence asks if RN thinks she will go home today. RN points out that if she thinks her medications still need to be changed she probably would not go home and she verbalized understanding. Forgetful of conversations that she had yesterday with this RN. While talking this morning she forgot that the RN was there to give her medications. She continues to experience anxiety throughout the day and is using her coping skills to help with them. Will continue to monitor. PROGRESS Observed: 12/28/2017 Status: COMPLETED Source: [facility] 12:00 AM CLINIC OTHER CAMPUS REPOSITORY [facility] ID: [id number] Author: Ralph Marie Service: Psychiatry Author Type: Physician Type: Progress Notes Filed: 12/29/2017 9:27 PM Note Text: [facility] - Progress Note PATIENT NAME: RADHA LOMAX CSN: [id number] DATE OF : 1960 SEX/AGE: F/57 PATIENT TYPE: I HOSP SV: [facility] LOCATION: [id number] DATE OF SERVICE: 12/28/2017 This patient was seen and interviewed, and there was communication with nursing staff. There was review of clinical chart and recent medical orders. CHIEF COMPLAINT/REASON FOR ADMISSION: This patient was admitted to the hospital because of problems with depression and suicidal ideation. This patient is reported to have problems with anxiety, obsessionality, and panic symptoms. This patient demonstrates significant depressive symptoms contributing to problems in daily functioning. CURRENT CLINICAL HISTORY: Clinical staff members reported this patient was continuing to evidence racing thoughts, pressured tangential speech, and some memory issues. The patient would vacillate between talking about her and wanting to go home to live with her . The patient had some loose associations at times. The patient was medication compliant and given changes further in medication on this date. During individual contact, this patient was bright and cheery. The patient was describing significant improvements in her mood. She appeared to be describing slightly less grandiosity and was less pressured in speech. The patient was describing strong desire to go home and be with her , and this appeared to be a departure from some of her previous discussions about how she wanted to possibly move out and be away from her . She denied that she had actually been thinking about this recently despite reports from nursing staff. The patient was minimizing of any side effects, although continued to be worried about medication, Seroquel at bedtime. The patient was focused on discharge. There was a meeting with the patient and her . This appeared to be a very positive meeting between the two, and they continued to reinforce the desire for them to be together, and there was no talk of moving out or divorce. The patient tended to minimize and deny she was ever having any of these thoughts at any time. MENTAL STATUS EXAMINATION: APPEARANCE AND BEHAVIOR: This patient is awake, appropriately alert during interview, and is casually dressed with adequate hygiene. This patient appears to have much difficulty cooperating with interview due to significant distractibility and lack of ability to focus. This patient shows some restlessness and can be fidgety during interview. AFFECT: This patient overall appears brighter, less anxious, sad, or depressed. This patient continues to present with lability of affect and overreactivity to stimulus during interview. SPEECH: Shows some evidence of sadness and anxiety in tone, but otherwise speech is age appropriately normal for content and structure. MOOD: This patient continues to present with sadness and depression. This patient describes minimal feelings of anger or irritability. This patient continues to present with anxiety. THOUGHT PROCESS: This patient continues to present with obsessionality, worries, or ruminative thinking. INSIGHT: Continues to be poor for treatment issues. JUDGMENT: This patient continues to appear to have difficulties in making sound reasonable decisions in interactions with others. SUICIDAL OR SELF-HARM IDEATION: Denied. HOMICIDAL IDEATION: This patient denies any thoughts to kill or harm others. ASSOCIATIONS: Tangential this patient speaks in an oblique tangential manner. ATTENTION, CONCENTRATION, AND FOCUS: This patient continues to have deficits, inability to have mental attention and focus. PSYCHOSIS: This patient denies any type of psychotic symptom including hallucinations or delusions. ENERGY LEVEL: This patient continues to present with problems of anergia and mental fatigue. CLINICAL ASSESSMENT: This patient continues to demonstrate significant symptoms and problems requiring ongoing hospital care. Vital signs were evaluated and were within normal parameters. This patient describes some minor side effects related to medication therapy, but these seem to be tolerated by the patient. DIAGNOSES: DSM AXIS I: 296.63, bipolar 1 disorder, most recent episode, mixed, severe, without psychotic features. Rule out, 296.90, mood disorder, not otherwise specified. 300.02, generalized anxiety disorder. PLAN: We will continue to monitor this patient's response to treatment including medications. We will monitor for emerging side effects and focus on safety issues and improved emotional control. We will also focus on areas of team treatment. We will change Zyprexa to 10 mg b.i.d. Ralph Marie MD (Alex) GM:modl /[id number] NURSING PROG Observed: 12/27/2017 Status: COMPLETED Source: [facility] 8:00 PM [facility] REPOSITORY HNO ID: [id number] Author: Stephania (Rn) JOHNIE Lucas Service: Behavioral Health Author Type: Registered Nurse Type: Nursing Progress Note Filed: 12/27/2017 9:31 PM Note Text: Pt in day bolaños when approached by RN for assessment. Pt is friendly and pleasant. Pt euphoric and religiously preoccupied but more calm than yesterday's assessment. Pt states, I am great! I told you, I am going to get a counselor and work things out with my didn't I? My came to see me today and we talked about this. I am really excited to make things work. pt rambles when speaking to others. Pt redirectable. Pt denies SI/HI/self harm/delusions/hallucinations. Pt denies anxiety and depression as well. Pt encouraged to seek staff with any questions/concerns/needs. Will continue to monitor pt for safety on unit. NURSING PROG Observed: 12/27/2017 Status: COMPLETED Source: [facility] 5:51 PM [facility] REPOSITORY HNO ID: [id number] Author: Rachel (Rn) Chelsea RN Service: Nursing Author Type: Registered Nurse Type: Nursing Progress Note Filed: 12/27/2017 5:55 PM Note Text: Patient continues to exhibit manic behavior. Stops RN multiple times to talk about her and her coping skills. She is having some ideas of reference; she shows RN some pictures that she found in art therapy but feels that they are speaking to her. She found picture of a house and thinks that means someday she will move into it. She also found a postcard with a picture of an elderly woman on it from [place] and thinks this means that she is meant to visit [place]. RN provided distraction for the patient and she is now making a card for her . ALLIED HEALTH Observed: 12/27/2017 Status: COMPLETED Source: [facility] 2:15 PM CLINIC OTHER CAMPUS REPOSITORY HNO ID: [id number] Author: Chaplain Austin (Chaplain) Service: Spiritual Care Author Type: Operator Control Room Type: Allied Health Filed: 12/27/2017 4:26 PM Note Text: SPIRITUALCARE Spiritual Care Visit- Brief Note Name: Radha Lomax Date: December 27, 2017 Notes: Patient attended chapel service. We shared musicthat uplifted us. Patient requested prayer for her health. Had closing prayer for everyone's return to good health and God's protection. Patient stayed afterward and mentioned that her mom told her that she liked her better when she was little and no one in their family had bipolar disorder. Offered support to patient and encouraged her to pray for the right words to express her hurt to her mother. Other patient suggested staying away from toxic people. I said it often helps to stay away, but there are times when meeting someone is inevitable. Visited patient later in the afternoon around 16:10 to deliver relevant CareNotes pamphlets. Patient expressed gratitude. Operator Control Room Signature: Chaplain Geovanna To contact the Spiritual Care Department: Please call [phone] or Page the On-Call Operator Control Room at pager [phone] Thank you for the opportunity to be of service. This is an electronically created document. IF PRINTED, PLEASE DO NOT REMOVE FROM THE CHART OR MODIFY PRINTED COPY. CONSULT PROG Observed: 12/27/2017 Status: COMPLETED Source: [facility] 12:00 PM CLINIC OTHER CAMPUS REPOSITORY HNO ID: [id number] Author: Alicja Dominguez Service: (none) Author Type: Physician Type: Consult Progress Note Filed: 12/27/2017 12:02 PM Note Text: INPATIENT PROGRESS NOTE SERVICE DATE: 12/27/2017 SERVICE TIME: 12:01 PM Subjective CHIEF COMPLAINT: Suicidal ideation PRIMARY SERVICE: Psych INTERVAL HPI: doing well on current allergy meds. No new medical comaplints Current hospital medications: loratadine 10 mg tab(s) (CLARITIN) 10 mg ORAL DAILY albuterol HFA 90 mcg/actuation 2 Puff (PROVENTIL HFA, VENTOLIN HFA) 2 Puff INHALATION q [address] 40 mg tab(s) (PROTONIX) 40 mg ORAL DAILY (6 AM) Ipratropium [place] 1 [place] nasal spray (ATROVENT) 1 [place] INTRANASAL TID OLANZapine 5 mg tab(s) (ZyPREXA) 5 mg ORAL AT BEDTIME QUEtiapine 200 mg tab(s) (SEROquel) 200 mg ORAL AT BEDTIME lamoTRIgine 200 mg tab(s) (LaMICtal) 200 mg ORAL BID OLANZapine 5 mg tab(s) (ZyPREXA) 5 mg ORAL BID 9a/4p sodium chloride 0.65 % 2 [place] (AYR, OCEAN) 2 [place] EACH NOSTRIL PRN docusate sodium 100 mg cap(s) (COLACE) 100 mg ORAL BID PRN buPROPion XL 150 mg tab(s) (WELLBUTRIN XL) 150 mg ORAL DAILY dextromethorphan 60 mg oral liquid ER (DELSYM) 60 mg ORAL AT BEDTIME Lip Protectant with Sunscreen SPF 15 1 application Stick (Blistex) 1 application TOPICAL PRN benzocaine-menthol 1 Lozenge (CEPACOL) 1 Lozenge MUCOUS MEMBRANE (TOPICAL MOUTH AND THROAT) q 2 H PRN traZODone 100 mg tab(s) (DESYREL) 100 mg ORAL HS PRN acetaminophen 650 mg tab(s) (TYLENOL) 650 mg ORAL q 6 H PRN aluminum-magnesium hydroxide-simethicone 200-200-20 mg/5 mL 30 mL (MAALOX,MYLANTA,MAG-AL PLUS) 30 mL ORAL q 4 H PRN magnesium hydroxide 400 mg/5 mL 30 mL (MOM) 30 mL ORAL DAILY PRN OLANZapine orally disintegrating 5 mg tab(s) (ZyPREXA ZYDIS) 5 mg ORAL q 4 H PRN DULoxetine 60 mg cap(s) (CYMBALTA) 60 mg ORAL DAILY tolterodine ER 2 mg cap(s) (DETROL LA) 2 mg ORAL AT BEDTIME atorvastatin 20 mg tab(s) (LIPITOR) 20 mg ORAL AT BEDTIME Objective PHYSICAL EXAM: BP 139/62 Pulse 94 Temp (Src) 97.7 (Temporal Artery) Resp 18 Ht 5' 2.992 (1.60m) Wt 156 lb (70.8kg) SpO2 97% BMI 27.64 kg/(m2). GENERAL: Alert, no distress, cooperative LUNGS: Lungs clear to auscultation, Good diaphragmatic excursion CARDIAC: Rhythm: regular rate and rhythm ABDOMEN: Soft, nontender and good PO Intake EXTREMITIES: ambulates easily DATA: Diagnostic tests reviewed for today's visit: No new labs Assessment/Plan Principal Problem: Suicidal ideation POA: Yes Assessment AND Plan: per spych Active Problems: Slow transit constipation POA: Yes Assessment AND Plan: stable Tension type headache POA: Yes Assessment AND Plan: no new c/o Nasal congestion POA: No Assessment AND Plan: improved Chest congestion POA: No Assessment AND Plan: improved Resolved Problems: * No resolved hospital problems. * Discussed with nursing SIGNATURE: Alicja Dominguez MD PATIENT NAME: Radha Lomax DATE: 12/27/2017 TIME: 12:01 PM PAGER: PROGRESS Observed: 12/27/2017 Status: COMPLETED Source: [facility] 11:27 AM CLINIC OTHER CAMPUS REPOSITORY HNO ID: [id number] Author: Zari (Med Aide) Calvin Service: (none) Author Type: Nurse Specialist Type: Progress Notes Filed: 12/27/2017 11:36 AM Note Text: PROGRESS NOTE BEHAVIORAL HEALTH SERVICE DATE: 12/27/2017 SERVICE TIME: 0830 am SILK SCREEN PAINTER covering for Dr. Marie. Chart and nursing data base reviewed. Consulted with nursing. Subjective Patient reports she is developing new coping skills to help when her mind is racing. She talked about her relationship with , the possibility of moving, and visiting with friends. She denies SI/HI/SIB. She denies any experiences consistent with psychosis. Sleep was on and off. Appetite is fair. Compliant with medication regimen. Did not require any PRN medications in the last 24 hours. Denies medication side effects. Objective PHYSICAL EXAM: BP 139/62 Pulse 94 Temp 36.5 ?C (97.7 ?F) Resp 18 Ht 160 cm (5' 2.99) Wt 70.8 kg (156 lb) SpO2 97% BMI 27.64 kg/m? MENTAL STATUS EXAMINATION: Appearance: Casually dressed Behavior: Talkative, cooperative, fidgety Orientation: Person, Place, Time and Situation Speech/Language: Rambling, sometimes rapid, at times loud Mood/Affect: Bright and Happy Thought Form: Coherent at times, loose at times Thought Content: Talking about future plans with , living arrangements Suicidal Ideations: No suicidal ideation, intent or plan. Homicidal Ideations: No homicidal ideation, intent or plan. Insight: Limited Judgment: Limited Memory/Cognition: Intact Psychomotor: Psychomotor activity was normal NEW PROBLEMS ON UNIT SINCE LAST ENCOUNTER: None Current hospital medications: loratadine 10 mg tab(s) (CLARITIN) 10 mg ORAL DAILY albuterol HFA 90 mcg/actuation 2 Puff (PROVENTIL HFA, VENTOLIN HFA) 2 Puff INHALATION q [address] 40 mg tab(s) (PROTONIX) 40 mg ORAL DAILY (6 AM) Ipratropium [place] 1 [place] nasal spray (ATROVENT) 1 [place] INTRANASAL TID OLANZapine 5 mg tab(s) (ZyPREXA) 5 mg ORAL AT BEDTIME QUEtiapine 200 mg tab(s) (SEROquel) 200 mg ORAL AT BEDTIME lamoTRIgine 200 mg tab(s) (LaMICtal) 200 mg ORAL BID OLANZapine 5 mg tab(s) (ZyPREXA) 5 mg ORAL BID 9a/4p sodium chloride 0.65 % 2 [place] (AYR, OCEAN) 2 [place] EACH NOSTRIL PRN docusate sodium 100 mg cap(s) (COLACE) 100 mg ORAL BID PRN buPROPion XL 150 mg tab(s) (WELLBUTRIN XL) 150 mg ORAL DAILY dextromethorphan 60 mg oral liquid ER (DELSYM) 60 mg ORAL AT BEDTIME Lip Protectant with Sunscreen SPF 15 1 application Stick (Blistex) 1 application TOPICAL PRN benzocaine-menthol 1 Lozenge (CEPACOL) 1 Lozenge MUCOUS MEMBRANE (TOPICAL MOUTH AND THROAT) q 2 H PRN traZODone 100 mg tab(s) (DESYREL) 100 mg ORAL HS PRN acetaminophen 650 mg tab(s) (TYLENOL) 650 mg ORAL q 6 H PRN aluminum-magnesium hydroxide-simethicone 200-200-20 mg/5 mL 30 mL (MAALOX,MYLANTA,MAG-AL PLUS) 30 mL ORAL q 4 H PRN magnesium hydroxide 400 mg/5 mL 30 mL (MOM) 30 mL ORAL DAILY PRN OLANZapine orally disintegrating 5 mg tab(s) (ZyPREXA ZYDIS) 5 mg ORAL q 4 H PRN DULoxetine 60 mg cap(s) (CYMBALTA) 60 mg ORAL DAILY tolterodine ER 2 mg cap(s) (DETROL LA) 2 mg ORAL AT BEDTIME atorvastatin 20 mg tab(s) (LIPITOR) 20 mg ORAL AT BEDTIME DATA: Diagnostic tests reviewed for today's visit: No new labs Assessment/Plan DIAGNOSIS: 1. PRIMARY: Mood Disorder Bipolar I Disorder, Most Recent Episode Mixed Severe Without Psychotic Features RISK ASSESSMENT: Suicide: low Homicide: low Deliberate Self-Harm: low Aggression: low Imminent Physical Self Impairment: low Plan: Continue psychiatric admission on 6400 with level 2 precautions. Patient requires more time to adjust to medication. Dr. Cox will continue medical management. Social work assisting with the discharge plan. Patient is encouraged to participate in groups and [facility]. There has been no use of restraint or seclusion in the past [address] Marie will follow tomorrow. SIGNATURE: Zari Simpson APRN.QUARRYING MANAGER PATIENT NAME: Radha Lomax DATE: December 27, 2017 TIME: 11:27 AM PAGER/CONTACT#: CHERYL PROG Observed: 12/27/2017 Status: COMPLETED Source: [facility] 8:46 AM CLINIC OTHER CAMPUS REPOSITORY O ID: [id number] Author: Rachel LivingstonRn) JOHNIE Tran Service: Nursing Author Type: Registered Nurse Type: Nursing Progress Note Filed: 12/27/2017 8:52 AM Note Text: Patient was out to the day [place]olaños for breakfast and compliant with med pass. She remains manic with pressured, tangential speech. RN discussed with the patient her inconsistent feelings about her and how yesterday morning she told this RN that she was happy to be from him and later in the day she was saying she wanted to work things out. The patient tells RN that she and her plan to live separately but go to counseling for about a year before deciding what they want to do. She says Dr. Marie told her that she is not at a point where she should be making any major decisions due to her fluctuating moods. Patient remains religiously preoccupied and tells RN about God working in her life and telling her what to do. She says she had some sort of epiphany last night that she needs to live in [place] and be near another yazidism she goes to. Patient gets very excited about every new decision and then quickly changes her mind. Affect is inappropriately bright. Thought process does seem more logical this AM and she isn't talking as quickly or as loudly. She tells RN that her pointed out to her how loud she was talking and she is going to try to keep it down. She is using coping skills to deal with her anxiety. She used deep breathing this AM to calm herself before having a panic attack. She also found that taking all of the colored pencils out of the box and organizing them by color helped her relax. Denies SI/HI/AH/VH. She is hopeful that she can go home tomorrow. Will continue to monitor. NURSING PROG Observed: 12/27/2017 Status: COMPLETED Source: [facility] 6:20 AM [facility] REPOSITORY HNO ID: [id number] Author: Stephania Nolasco) JOHNIE Lucas Service: Behavioral Health Author Type: Registered Nurse Type: Nursing Progress Note Filed: 12/27/2017 6:38 AM Note Text: Pt excessively euphoric with rambling speech this morning at nurses' station. Pt states, I am so happy, I could shout on the roof tops how much I love Catrachita. I love you girls with all of my heart too. Catrachita just gave me a confirmation that I should sell my house and go to a new yazidism. He also told me I should work at a [employer]. I just love old people so much. I also love my new slippers. Deviled eggs are my favorite. 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 You know what? I am going to work on my marriage with my . My loves me with all of his heart. We have a good counselor we are going to go to. Pt redirectable. Will continue to monitor pt for safety on unit. NURSING PROG Observed: 12/26/2017 Status: COMPLETED Source: [facility] 8:18 PM [facility] OTHER [place] REPOSITORY HNO ID: [id number] Author: Stephania LivingstonRn) JOHNIE Lucas Service: Behavioral Health Author Type: Registered Nurse Type: Nursing Progress Note Filed: 12/26/2017 9:00 PM Note Text: Pt in day [place] when approached by RN for assessment. Pt cooperative and friendly. Pt fidgety and having trouble sitting still. Pt rambles with speech and has increased energy as well. Pt is bright and states, I am feeling much better. I have small anxiety but other than that, things are good! My medications are working but they are also making me fat. I don't want to turn into a porker. I will make myself get up every day and work out so that I don't keep gaining weight. They say if you do something for 21 days, it becomes a habit. pt denies SI/HI/self harm/delusions/hallucinations/depression. Pt makes verbal contract for safety on unit. Pt encouraged to attend daily groups. Pt encouraged to seek staff for any questions/concerns/needs. Will continue to monitor pt for safety on unit. NURSING PROG Observed: 12/26/2017 Status: COMPLETED Source: [facility] 5:10 PM [facility] REPOSITORY HNO ID: [id number] Author: Rachel (Rn) JOHNIE Tran Service: Nursing Author Type: Registered Nurse Type: Nursing Progress Note Filed: 12/26/2017 6:08 PM Note Text: Patient approached another RN; she was shaking and asked the RN what could be causing it. When asked what she had been thinking about she says she was thinking about her and that he was coming to visit her this evening. Patient now says she does not mind if her comes to visit. CONSULT PROG Observed: 12/26/2017 Status: COMPLETED Source: [facility] 1:45 PM [facility] REPOSITORY HNO ID: [id number] Author: Alicja Dominguez Service: (none) Author Type: Physician Type: Consult Progress Note Filed: 12/26/2017 1:48 PM Note Text: INPATIENT PROGRESS NOTE SERVICE DATE: 12/26/2017 SERVICE TIME: 1:45 PM Subjective CHIEF COMPLAINT: Suicidal ideation PRIMARY SERVICE: Psych INTERVAL HPI: c/o nasal and chest congestion. Mild SOB and cough Current hospital medications: loratadine 10 mg tab(s) (CLARITIN) 10 mg ORAL DAILY albuterol HFA 90 mcg/actuation 2 Puff (PROVENTIL HFA, VENTOLIN HFA) 2 Puff INHALATION q 6 H PRN [START ON 12/27/2017] pantoprazole DR 40 mg tab(s) (PROTONIX) 40 mg ORAL DAILY (6 AM) Ipratropium [place] 1 [place] nasal spray (ATROVENT) 1 [place] INTRANASAL TID OLANZapine 5 mg tab(s) (ZyPREXA) 5 mg ORAL AT BEDTIME QUEtiapine 200 mg tab(s) (SEROquel) 200 mg ORAL AT BEDTIME lamoTRIgine 200 mg tab(s) (LaMICtal) 200 mg ORAL BID OLANZapine 5 mg tab(s) (ZyPREXA) 5 mg ORAL BID 9a/4p sodium chloride 0.65 % 2 [place] (AYR, OCEAN) 2 [place] EACH NOSTRIL PRN docusate sodium 100 mg cap(s) (COLACE) 100 mg ORAL BID PRN buPROPion XL 150 mg tab(s) (WELLBUTRIN XL) 150 mg ORAL DAILY dextromethorphan 60 mg oral liquid ER (DELSYM) 60 mg ORAL AT BEDTIME Lip Protectant with Sunscreen SPF 15 1 application Stick (Blistex) 1 application TOPICAL PRN benzocaine-menthol 1 Lozenge (CEPACOL) 1 Lozenge MUCOUS MEMBRANE (TOPICAL MOUTH AND THROAT) q 2 H PRN traZODone 100 mg tab(s) (DESYREL) 100 mg ORAL HS PRN acetaminophen 650 mg tab(s) (TYLENOL) 650 mg ORAL q 6 H PRN aluminum-magnesium hydroxide-simethicone 200-200-20 mg/5 mL 30 mL (MAALOX,MYLANTA,MAG-AL PLUS) 30 mL ORAL q 4 H PRN magnesium hydroxide 400 mg/5 mL 30 mL (MOM) 30 mL ORAL DAILY PRN OLANZapine orally disintegrating 5 mg tab(s) (ZyPREXA ZYDIS) 5 mg ORAL q 4 H PRN DULoxetine 60 mg cap(s) (CYMBALTA) 60 mg ORAL DAILY tolterodine ER 2 mg cap(s) (DETROL LA) 2 mg ORAL AT BEDTIME atorvastatin 20 mg tab(s) (LIPITOR) 20 mg ORAL AT BEDTIME Objective PHYSICAL EXAM: BP 137/67 Pulse 75 Temp (Src) 98.1 (Temporal Artery) Resp 18 Ht 5' 2.992 (1.60m) Wt 156 lb (70.8kg) SpO2 96% BMI 27.64 kg/(m2). GENERAL: Alert, no distress, cooperative HEENT: nasal congestion LUNGS: Lungs clear to auscultation, Good diaphragmatic excursion CARDIAC: Rhythm: regular rate and rhythm ABDOMEN: Soft, nontender and po OK EXTREMITIES: ambulates easily DATA: Diagnostic tests reviewed for today's visit: No new labs Assessment/Plan Principal Problem: Suicidal ideation POA: Yes Assessment AND Plan: perpsych Active Problems: Slow transit constipation POA: Yes Assessment AND Plan: improved Tension type headache POA: Yes Assessment AND Plan: stable Nasal congestion: already using saline. Add claritin and nasal ipratropium Chest Congestion: add provental due to SOB/subjective wheezing Resolved Problems: * No resolved hospital problems. * Discussed with nursing SIGNATURE: Alicja Dominguez MD PATIENT NAME: Radha Lomax DATE: 12/26/2017 TIME: 1:45 PM PAGER: PROGRESS Observed: 12/26/2017 Status: COMPLETED Source: [facility] 10:27 AM CLINIC OTHER CAMPUS REPOSITORY O ID: [id number] Author: Zari (Med Aide) Calvin Service: (none) Author Type: Nurse Specialist Type: Progress Notes Filed: 12/26/2017 10:36 AM Note Text: PROGRESS NOTE BEHAVIORAL HEALTH SERVICE DATE: 12/26/2017 SERVICE TIME: 0830 SILK SCREEN PAINTER covering for Dr. Marie. Chart and nursing data base reviewed. Consulted with nursing. Subjective Patient reports she feels really good. States she is working with team to make her more even as she has experienced both hi's and low's this admission. Denies SI/HI/SIB. Denies any experiences consistent with psychosis. Sleep has been on and off, slept 4 hours. Appetite has increased. Compliant with medication regimen. Has not required any PRN medications in the last 24 hours. Patient is somatic and feels they are medication side effects however willing to give it some time. Objective PHYSICAL EXAM: BP 137/67 Pulse 75 Temp 36.7 ?C (98.1 ?F) Resp 18 Ht 160 cm (5' 2.99) Wt 70.8 kg (156 lb) SpO2 96% BMI 27.64 kg/m? MENTAL STATUS EXAMINATION: Appearance: Casually dressed Behavior: Appropriate and Dramatic Orientation: Person, Place, Time and Situation Speech/Language: Normal rate and tone Mood/Affect: Bright, Happy and Hopeful Thought Form: Rumination Thought Content: Obsessions: somatic, medication Suicidal Ideations: No suicidal ideation, intent or plan. Homicidal Ideations: No homicidal ideation, intent or plan. Insight: Limited Judgment: Limited Memory/Cognition: Intact Psychomotor: Psychomotor activity was normal NEW PROBLEMS ON UNIT SINCE LAST ENCOUNTER: None Current hospital medications: OLANZapine 5 mg tab(s) (ZyPREXA) 5 mg ORAL AT BEDTIME QUEtiapine 200 mg tab(s) (SEROquel) 200 mg ORAL AT BEDTIME lamoTRIgine 200 mg tab(s) (LaMICtal) 200 mg ORAL BID OLANZapine 5 mg tab(s) (ZyPREXA) 5 mg ORAL BID /4p sodium chloride 0.65 % 2 [place] (AYR, OCEAN) 2 [place] EACH NOSTRIL PRN docusate sodium 100 mg cap(s) (COLACE) 100 mg ORAL BID PRN buPROPion XL 150 mg tab(s) (WELLBUTRIN XL) 150 mg ORAL DAILY dextromethorphan 60 mg oral liquid ER (DELSYM) 60 mg ORAL AT BEDTIME Lip Protectant with Sunscreen SPF 15 1 application Stick (Blistex) 1 application TOPICAL PRN benzocaine-menthol 1 Lozenge (CEPACOL) 1 Lozenge MUCOUS MEMBRANE (TOPICAL MOUTH AND THROAT) q 2 H PRN traZODone 100 mg tab(s) (DESYREL) 100 mg ORAL HS PRN acetaminophen 650 mg tab(s) (TYLENOL) 650 mg ORAL q 6 H PRN aluminum-magnesium hydroxide-simethicone 200-200-20 mg/5 mL 30 mL (MAALOX,MYLANTA,MAG-AL PLUS) 30 mL ORAL q 4 H PRN magnesium hydroxide 400 mg/5 mL 30 mL (MOM) 30 mL ORAL DAILY PRN OLANZapine orally disintegrating 5 mg tab(s) (ZyPREXA ZYDIS) 5 mg ORAL q 4 H PRN DULoxetine 60 mg cap(s) (CYMBALTA) 60 mg ORAL DAILY tolterodine ER 2 mg cap(s) (DETROL LA) 2 mg ORAL AT BEDTIME atorvastatin 20 mg tab(s) (LIPITOR) 20 mg ORAL AT BEDTIME DATA: Diagnostic tests reviewed for today's visit: No new labs Assessment/Plan DIAGNOSIS: 1. PRIMARY: Mood Disorder Bipolar I Disorder, Most Recent Episode Mixed Severe Without Psychotic Features RISK ASSESSMENT: Suicide: low Homicide: low Deliberate Self-Harm: low Aggression: low Imminent Physical Self Impairment: low Plan: Continue psychiatric admission on [place] with level 2 precautions. Patient requires more time to adjust to medication. Dr. Cox will continue medical management. Social work assisting with the discharge plan. Patient is encouraged to participate in groups and activities in [place]. There has been no use of restraint or seclusion in the past 24 hours. QUARRYING MANAGER will follow tomorrow. SIGNATURE: Zari Simpson APRN.QUARRYING MANAGER PATIENT NAME: Radha Lomax DATE: December 26, 2017 TIME: 10:28 AM PAGER/CONTACT#: NURSING PROG Observed: 12/26/2017 Status: COMPLETED Source: [facility] 9:46 AM [facility] REPOSITORY HNO ID: [id number] Author: Rachel (Rn) JOHNIE Tran Service: Nursing Author Type: Registered Nurse Type: Nursing Progress Note Filed: 12/26/2017 9:50 AM Note Text: Patient was out to the day bolaños for breakfast and compliant with med pass. She remains manic, talkative with pressured speech, and inappropriately bright affect. She tells this RN that she feels better not being around he . She reports feeling happy and talks at length about God coming into her life and causing her feel this way. She says she is thankful for this situation and that she would go through it again. She continues to need redirection frequently regarding intrusiveness and boundaries. Denies SI/HI/AH/VH. Will continue to monitor. PROGRESS Observed: 12/26/2017 Status: COMPLETED Source: [facility] 12:00 AM [facility] REPOSITORY HNO ID: [id number] Author: Ralph Marie Service: Psychiatry Author Type: Physician Type: Progress Notes Filed: 12/27/2017 10:51 PM Note Text: [facility] - Progress Note PATIENT NAME: RADHA LOMAX CSN: [id number] DATE OF : 1960 SEX/AGE: F/57 PATIENT TYPE: I HOSP SVC: PSYR LOCATION: [id number] DATE OF SERVICE: 12/25/2017 This patient was seen and interviewed, and there was communication with nursing staff. There was review of clinical chart and recent medical orders. CHIEF COMPLAINT/REASON FOR ADMISSION: This patient was admitted to the hospital because of problems with depression and suicidal ideation. This patient is reported to have problems with anxiety, obsessionality, and panic symptoms. This patient demonstrates significant depressive symptoms contributing to problems in daily functioning. CURRENT CLINICAL HISTORY: Clinical staff members reported this patient seemed to be restless and anxious. The patient had pressured speech and would change from one subject to another. She continued to give evidence of manic pressured thinking. The patient was jumping from subject to subject. She appeared to be slightly improved from the previous day. The patient had been given changes in medication and appeared to settle and sleep the night more readily. During individual contact, this patient was anxious and was restless. She jump from one subject to another and continued to be showing pressured thinking and speech. The patient was jumping from one subject to another. Overall, she appeared to be slightly more settled, although continued to have irrational pronouncements and thoughts. She exemplified continued ambivalence regarding her marriage, but was cautioned to wait for any decisions. The patient was unable to show insight into this however. She was not appearing tired or sleepy, but did report that she had much improved sleep the previous night. She was also for the first time reporting problems with increased appetite. MENTAL STATUS EXAMINATION: APPEARANCE AND BEHAVIOR: This patient is awake, appropriately alert during interview and is casually dressed with adequate hygiene. This patient has difficulties participating in the interview due to lack of concentration and increased distractibility. This patient appears fidgety and restless during interview. AFFECT: This patient appears blunted and anxious. This patient continues to present with lability of affect and overreactivity to stimulus during interview. SPEECH: Shows some evidence of sadness and anxiety in tone, but otherwise speech is age appropriately normal for content and structure. MOOD: This patient continues to present with sadness and depression. This patient describes minimal feelings of anger or irritability. This patient continues to present with anxiety. THOUGHT PROCESS: This patient continues to present with obsessionality, worries, or ruminative thinking. INSIGHT: Continues to be poor for treatment issues. JUDGMENT: This patient continues to appear to have difficulties in making sound reasonable decisions in interactions with others. SUICIDAL OR SELF-HARM IDEATION: Denied. HOMICIDAL IDEATION: This patient denies any thoughts to kill or harm others. ASSOCIATIONS: Tangential. This patient speaks in an oblique tangential manner. ATTENTION, CONCENTRATION, AND FOCUS: This patient continues to have deficits, inability to have mental attention and focus. PSYCHOSIS: This patient denies outright psychotic symptoms, but appears to have mental confusion and disorganized mentation during interview. ENERGY LEVEL: This patient continues to present with problems of anergia and mental fatigue. CLINICAL ASSESSMENT: This patient continues to demonstrate significant symptoms and problems requiring ongoing hospital care. Vital signs were evaluated and were within normal parameters. This patient describe some minor side effects related to medication therapy, but these seem to be tolerated by the patient. DIAGNOSES: DSM AXIS I: 296.63, bipolar 1 disorder, most recent episode, mixed, severe, without psychotic features. Rule out 296.90, mood disorder, not otherwise specified. 300.02, generalized anxiety disorder. PLAN: We will continue to monitor this patient's response to treatment including medications. We will monitor for emerging side effects and focus on safety issues and improved emotional control. We will also focus on areas of team treatment. We will add Seroquel 200 mg at bedtime. Ralph Marie MD (Alex) GM:modl /[id number] NURSING PROG Observed: 12/25/2017 Status: COMPLETED Source: [facility] 9:58 PM CLINIC OTHER CAMPUS REPOSITORY O ID: [id number] Author: Marcy Nolasco) JOHNIE Veras Service: Nursing Author Type: Registered Nurse Type: Nursing Progress Note Filed: 12/25/2017 10:03 PM Note Text: Nursing Progress Note Patient Name: Radha Lomax Patient Location: [id number]* Daily Note: Up and about al evening. Pleasantly intrusive at nurses station, directable. Pt with multiple requests/complaints. Pt is somatic-complains of feeling fat, bloated gassy and swollen. Pt states that she is having some reflux and that this is new and must be related to medication. Pt c/o swelling in legs/feet-observed by senior technical writer, mild generalized non-pitting, left slightly worse that right. Pt reports weight gain. Ongoing c/o constipation although pt does report having had a bm yesterday- MOM given per request. Much reassurance and direction provided as well as medication teaching. This note was completed by: Marcy Veras RN ALLIED HEALTH Observed: 12/25/2017 Status: COMPLETED Source: [facility] 4:20 PM [facility] REPOSITORY HNO ID: [id number] Author: Ama (Therapist) Mylene Crain Service: Art Therapy Author Type: Therapist Type: Allied Health Filed: 12/25/2017 4:24 PM Note Text: PROGRESS NOTE BEHAVIORAL HEALTH Topic of Note: Group Participation SERVICE DATE: 12/25/2017 SERVICE TIME: 14:35-15:55 -A-Pt stated that they are feeling glad. Pt presented with high level of energy and hypomanic affect.Pt. Is disorganized and having difficulty attending to tasks. Pt actively participated in activity and discussion. Pt. aid that in her heart were [place], animals, food, friends and family. -I- Facilitated group re: Emotional Resilience .Therapist provided opportunity to express thoughts and feelings. -E- Pt. could benefit from continued support. SIGNATURE: Ama Crain LPC PATIENT NAME: Radha Lomax DATE: December 25, 2017 TIME: 4:20 PM PAGER/CONTACT #: ALLIED HEALTH Observed: 12/25/2017 Status: COMPLETED Source: [facility] 2:10 PM [facility] REPOSITORY HNO ID: [id number] Author: Ama (Therapist) Mylene Crain Service: Art Therapy Author Type: Therapist Type: Allied Health Filed: 12/25/2017 2:14 PM Note Text: PROGRESS NOTE BEHAVIORAL HEALTH Topic of Note: Group Participation SERVICE DATE: 12/25/2017 SERVICE TIME: 9:40-10:45 -A-Pt stated that they are feeling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 deficits, inability to have mental attention and focus. PSYCHOSIS: This patient denies any type of psychotic symptom including hallucinations or delusions. ENERGY LEVEL: This patient continues to present with problems of anergia and mental fatigue. CLINICAL ASSESSMENT: This patient continues to demonstrate significant symptoms and problems requiring ongoing hospital care. Vital signs were evaluated and were within normal parameters. This patient describes some minor side effects related to medication therapy, but these seem to be tolerated by the patient. DIAGNOSES: DSM AXIS I: 296.63, bipolar 1 disorder, most recent episode, mixed, severe, without psychotic features. Rule out, 296.90, mood disorder, not otherwise specified. 300.02 generalized anxiety disorder. PLAN: We will continue to monitor this patient's response to treatment including medications. We will monitor for emerging side effects and focus on safety issues and improved emotional control. We will also focus on areas of team treatment. We will change the medication, Seroquel to 200 mg p.o. bedtime. Ralph Marie MD (Alex) GM:toni /[id number] NURSING PROG Observed: 12/23/2017 Status: COMPLETED Source: [facility] 7:00 PM CLINIC OTHER CAMPUS REPOSITORY O ID: [id number] Author: Sinai Nolasco) JOHNIE Mars Service: Nursing Author Type: Registered Nurse Type: Nursing Progress Note Filed: 12/23/2017 9:00 PM Note Text: Nursing Progress Note Patient Name: Radha Lomax Patient Location: [id number]/[id number]* Daily Note: Pt up to nurses station visibly upset and tearful because her was late for visiting hours. Pt was loud and disruptive, patient was told to go to room to try and calm down. This RN and security had to assist patient to her room because she as hunched over crying. Pt spit out gum on the floor while going back to her room and states that her brought it in for her. Pts remained in day bolaños while this RN, Cortney RN and safety trainer Stuart tried to talk to patient and verbally deescalate. Pt would calm down at times and then she would work herself back up and have another outburst. Pt stated that she did not want to visit anymore and was worried that he would be mad at her so staff told the patient that she did not have to tell him to leave and that safety trainer tell him he had to leave due to how upset the patient was. When staff told the that he had to leave, patient's stormed off and stated catrachita jamie which made patient have another outburst. Pt went back to her room with staff to try and calm down. Pt states that this happens every time she is around him and he always makes her upset. Pt states she does not know what she wants to do when she gets discharged, whether she wants to get a divorce or not. It was suggested to patient that she write down a discharge plan and what she wants to do if she does not want to go back home to her . Patient states that she either wants to stay with her parents for a while or rent an apartment from her friends. Pt was also talking about how her called and yelled at her parents for not coming to visit her which is upsetting her. Pt was able to stay in her room and keep calm and journal while RNs went into report. 1930 - This RN and Cortney RN went to check on patient in her room, she was still calm and writing in her journal. Pt made RNs aware that she did not want her to visit anymore. RNs made patient aware that we would be checking her room. Pt left room and was walking around the unit with another patient. Pt did not have any more contraband in her room at this time. Will continue to monitor. 2054 - Pt dressed in own clothing. Pt calm and cooperative with assessment at this time. Pt states anxiety 08/15. Pt denies depression, SI/HI, A/VH. Pt up on unit and social with other patients on the unit. Pt has been able to keep herself calm and use coping skills. Pt agrees to be safe on the unit and to seek staff with any needs. Will continue to monitor. This note was completed by: Sinai Mars RN [facility] Observed: 12/23/2017 Status: COMPLETED Source: [facility] 4:22 PM [facility] REPOSITORY HNO ID: [id number] Author: Olena (Therapist) Maki, Therapist Service: Behavioral Health Author Type: Therapist Type: Allied Health Filed: 12/23/2017 4:25 PM Note Text: PROGRESS NOTE BEHAVIORAL HEALTH Topic of Note: Group Participation SERVICE DATE: 12/23/2017 SERVICE TIME: [id number] SIGNATURE: Olena Gambino, [facility] PATIENT NAME: Radha Lomax DATE: December 23, 2017 TIME: 4:23 PM PAGER/CONTACT #: -A-Pt stated that they are feeling content, happy. Pt presented with moderate level of energy and appropriate affect. Pt actively participated in activity and discussion. Patient was easily distracted and became tearful during group. -I- Facilitated group re: Mind, body, spirit.Therapist provided opportunity to express thoughts and feelings. -E- Pt. Could benefit from continued opportunities to express thoughts and feelings in a supportive therapeutic environment. [facility] Observed: 12/23/2017 Status: COMPLETED Source: [facility] 11:00 AM [facility] OTHER [place] REPOSITORY HNO ID: [id number] Author: Susan GUIDO Service: (none) Author Type: (none) Type: Allied Health Filed: 12/23/2017 1:43 PM Note Text: MUSIC THERAPY Topic: Therapy Group Note Patient Name: Radha Lomax Date: 12/23/2017 Time Spent: 20 minutes Type of Session: Group INTERVENTIONS: Music and meditation, relaxation, education Style of music used: Music for relaxation and mindfulness. Patient's verbal response: Positive Feelings prior to the session: Happy COMMENTS: Ms. Lomax presented with a calm manner and neutral affect. She was pleasant during group although tangential with her speech, at times dominating the conversation but responded well to redirection. She participated well in group interventions. She will benefit from continued opportunities for group therapy. Signature: Susan Noe VA-BC Beeper: [phone] This is an electronically created document. IF PRINTED, PLEASE DO NOT REMOVE FROM THE CHART OR MODIFY PRINTED COPY. [facility] Observed: 12/23/2017 Status: COMPLETED Source: [facility] 10:43 AM CLINIC OTHER CAMPUS REPOSITORY O ID: [id number] Author: Emanuel Castillo (Chaplain) Service: Spiritual Care Author Type: Operator Control Room Type: Allied Health Filed: 12/23/2017 10:45 AM Note Text: SPIRITUAL CARE Spiritual Care Visit Record Name: Radha Lomax Date: December 23, 2017 Type of Visit: Introductory Visit Urgency of Visit: Routine Visit was with (pt, family, other) and name(s): . SPIRITUAL CARE VISIT Spiritual Distress: 8 - Operator Control Room Observation. Spiritual Distress Scale (1-10 with 1= low distress and 10 = highest distress imaginable) Explain Meaning of Rating: Patient spoke regarding major decisions in life, including from her , after realizing that she has been sick throughout their marriage. 1. Ministry Provided During Visit: Decision-Making Reflection / Assistance Education / Reading Materials Facilitate Episcopalian Practice Prayer / Meditation / Guided Imagery 2. Themes Discussed During Visit: Being of Value / Self-Love Gloria / Gratefulness Prayer / Meditation Reconciliation / Forgiveness Spiritual Aspects of Disease / Illness / Injury 3. Spiritual Episcopalian Issues, Beliefs Significant to Healing, or Other Notes: REFERRAL(S ) / TEAM COLLABORATION Referrals: No referral made Notes Regarding Collaboration / Consultation With Care Team: FUTURE SPIRITUAL CARE PLANS Will See: Regularly Follow-up Notes: Informed patient of Operator Control Room availability Operator Control Room Signature: Chaplain Ez To contact the Spiritual Care Department: Please call [phone] or Page the On-Call Operator Control Room at pager [phone] Thank you for the opportunity to be of service. This is an electronically created document. IF PRINTED, PLEASE DO NOT REMOVE FROM THE CHART OR MODIFY PRINTED COPY. CONSULT PROG Observed: 12/23/2017 Status: COMPLETED Source: [facility] 10:01 AM CLINIC OTHER CAMPUS REPOSITORY HNO ID: [id number] Author: Andrae Cox Service: General Internal Medicine Author Type: Physician Type: Consult Progress Note Filed: 12/23/2017 10:01 AM Note Text: INPATIENT PROGRESS NOTE SERVICE DATE: 12/23/2017 SERVICE TIME: 10:01 AM Subjective CHIEF COMPLAINT: Suicidal ideation PRIMARY SERVICE: Psych INTERVAL HPI: no changes medically Current hospital medications: OLANZapine 5 mg tab(s) (ZyPREXA) 5 mg ORAL AT BEDTIME OLANZapine 5 mg tab(s) (ZyPREXA) 5 mg ORAL BID 9a/4p sodium chloride 0.65 % 2 [place] (AYR, OCEAN) 2 [place] EACH NOSTRIL PRN docusate sodium 100 mg cap(s) (COLACE) 100 mg ORAL BID PRN lamoTRIgine (LaMICtal) tab(s) 150 mg 150 mg ORAL BID buPROPion XL 150 mg tab(s) (WELLBUTRIN XL) 150 mg ORAL DAILY FLUoxetine 20 mg cap(s) (PROzac) 20 mg ORAL DAILY dextromethorphan 60 mg oral liquid ER (DELSYM) 60 mg ORAL AT BEDTIME Lip Protectant with Sunscreen SPF 15 1 application Stick (Blistex) 1 application TOPICAL PRN benzocaine-menthol 1 Lozenge (CEPACOL) 1 Lozenge MUCOUS MEMBRANE (TOPICAL MOUTH AND THROAT) q 2 H PRN traZODone 100 mg tab(s) (DESYREL) 100 mg ORAL HS PRN acetaminophen 650 mg tab(s) (TYLENOL) 650 mg ORAL q 6 H PRN aluminum-magnesium hydroxide-simethicone 200-200-20 mg/5 mL 30 mL (MAALOX,MYLANTA,MAG-AL PLUS) 30 mL ORAL q 4 H PRN magnesium hydroxide 400 mg/5 mL 30 mL (MOM) 30 mL ORAL DAILY PRN OLANZapine orally disintegrating 5 mg tab(s) (ZyPREXA ZYDIS) 5 mg ORAL q 4 H PRN DULoxetine 60 mg cap(s) (CYMBALTA) 60 mg ORAL DAILY tolterodine ER 2 mg cap(s) (DETROL LA) 2 mg ORAL AT BEDTIME atorvastatin 20 mg tab(s) (LIPITOR) 20 mg ORAL AT BEDTIME Objective PHYSICAL EXAM: BP 148/89 Pulse 86 Temp (Src) 99 (Temporal Artery) Resp 18 Ht 5' 2.992 (1.60m) Wt 156 lb (70.8kg) SpO2 100% BMI 27.64 kg/(m2). GENERAL: Alert, no distress, cooperative LUNGS: Lungs clear to auscultation, Good diaphragmatic excursion CARDIAC: Normal S1 and S2; no rubs, murmurs, or gallops ABDOMEN: Abdomen soft, non-tender, BS normal, No masses or organomegaly DATA: Diagnostic tests reviewed for today's visit: No new labs Assessment/Plan Principal Problem: Suicidal ideation POA: Yes Assessment AND Plan: psych Active Problems: Slow transit constipation POA: Yes Assessment AND Plan: stable Tension type headache POA: Yes Assessment AND Plan: no changes Resolved Problems: * No resolved hospital problems. * Discussed with nursing SIGNATURE: Andrae Cox MD PATIENT NAME: Radha Lomax DATE: 12/23/2017 TIME: 10:01 AM PAGER: NURSING PROG Observed: 12/23/2017 Status: COMPLETED Source: [facility] 7:00 AM CLINIC OTHER CAMPUS REPOSITORY [facility] ID: [id number] Author: Cortney Frausto (Rn) JOHNIE Moore Service: Nursing Author Type: Registered Nurse Type: Nursing Progress Note Filed: 12/23/2017 8:23 AM Note Text: Nursing Progress Note Patient Name: Radha Lomax Patient Location: [id number]/[id number]* Daily Note: Patient up at nursing station, singing, talking loudly -- rambling. Patient talking about birthstones, jewelry, going home, medications, her dog, her step father, her , going to the store, singing, her coping skills. Patient states, I am going home today, I am going home. RN asks patient if the doctor has told her she will be going home today. Patient says, no, but I feel good. My speech is still not right, but it never was. Patient redirected, asked if she can return to day area and wait for breakfast to arrive as RNs are going to be going into report. Patient agrees to do this. 0745 - Patient quickly walking to catch up to RN in hallway, again talking about going home. Patient intrusive into RNs space, does not appear to be aware that she is standing too close and touching. Patient touching RNs badge rice, attempts to touch RNs face. Patient then begins talking about charcoal toothpaste and how she is going to buy charcoal block and crush it up to make her own. Patient encouraged by RN to finish eating her breakfast and then come up for morning medications. Will continue to monitor. This note was completed by: Cortney Moore RN PROGRESS Observed: 12/23/2017 Status: COMPLETED Source: [facility] 12:00 AM CLINIC OTHER CAMPUS REPOSITORY [facility] ID: [id number] Author: Ralph Marie Service: Psychiatry Author Type: Physician Type: Progress Notes Filed: 12/24/2017 7:27 PM Note Text: [facility] - Progress Note PATIENT NAME: RADHA LOMAX CSN: [id number] DATE OF : 1960 SEX/AGE: F/57 PAT[place] [facility] [place] [facility] LOCATION: [id number] DATE OF SERVICE: 12/23/2017 This patient was seen and interviewed, and there was communication with nursing staff. There was review of clinical chart and recent medical orders. CHIEF COMPLAINT/REASON FOR ADMISSION: This patient was admitted to the hospital because of problems with depression and suicidal ideation. This patient is reported to have problems with anxiety, obsessionality, and panic symptoms. This patient demonstrates significant depressive symptoms contributing to problems in daily functioning. CURRENT CLINICAL HISTORY: Clinical staff members reported this patient was up in the morning after having much difficulty settling to sleep the night. The patient was jumping from subject to subject, and was having evidence of racing thoughts. She had appropriate discussions. Initially, in the morning, she had decided to again divorce her , but later claimed that she had seen the light and decided that she would never divorce her . She was given changes in medication on this date and was medication compliant. During individual contact, this patient was anxious, restless. The patient seemed to have racing thoughts as evidence by stream of consciousness. The patient was talking and going from one subject to the other. The patient at times would lose track of conversation. The patient was denying any problems with medication, but admitted that she had only slept approximately 3-1/2 to 4 hours overnight. She reported that I was not even tired. The patient had been describing that she did not want the medication, Seroquel and therefore had asked for the medication, Zyprexa to be given. She reported that the Zyprexa had not helped her sleep as well, but she was resistant to return to the Seroquel. The patient was continuing to give mixed messages about the nature of her marriage. Previous day, she had described that she was very much pleased with the marriage and looking forward to going home to be with her . She had changed her mind overnight, had become to race in her thinking about wanting to be and planning to separate from her . It was pointed out to her that this was a significant change for 1 day to the next, and that these changes had been happening frequently. She was reminded that this was possibly a sign that her mood was not stable and that her mind was continuing to race. She was focused on discharge. This was a meeting with the patient's . He continued to seem supportive despite the switching that she was having towards their relationship. He was blaming the mental illness for this. He was denying any problems with continuing while in the hospital, however, due to his sense that she was quite unstable. MENTAL STATUS EXAMINATION: APPEARANCE AND BEHAVIOR: This patient is awake, alert during interview, and presents with adequate dress and hygiene. The patient demonstrates poor eye contact. This patient appears to attempt to be cooperative during interview, but shows very poor insight into current symptoms or difficulties. This patient appears fidgety and restless during interview. AFFECT: This patient appears blunted and anxious. This patient continues to present with lability of affect and overreactivity to stimulus during interview. SPEECH: Shows some evidence of sadness and anxiety in tone, but otherwise speech is age appropriately normal for content and structure. MOOD: This patient continues to present with sadness and depression. This patient describes minimal feelings of anger or irritability. This patient continues to present with anxiety. THOUGHT PROCESS: This patient continues to present with obsessionality, worries, or ruminative thinking. INSIGHT: Continues to be poor for treatment issues. JUDGMENT: This patient continues to appear to have difficulties in making sound reasonable decisions in interactions with others. SUICIDAL OR SELF-HARM IDEATION: Denied. HOMICIDAL IDEATION: This patient denies any thoughts to kill or harm others. ASSOCIATIONS: Tangential, this patient speaks in an oblique tangential manner. ATTENTION, CONCENTRATION, AND FOCUS: This patient continues to have deficits, inability to have mental attention and focus. PSYCHOSIS: This patient denies any type of psychotic symptom including hallucinations or delusions. ENERGY LEVEL: This patient continues to present with problems of anergia and mental fatigue. CLINICAL ASSESSMENT: This patient continues to demonstrate significant symptoms and problems requiring ongoing hospital care. Vital signs were evaluated and were within normal parameters. This patient describes some minor side effects related to medication therapy, but these seem to be tolerated by the patient. DIAGNOSES: DSM AXIS I: 296.63, bipolar 1 disorder, most recent episode, mixed, severe, without psychotic features. Rule out, 296.90, mood disorder, not otherwise specified. 300.02, generalized anxiety disorder. PLAN: We will continue to monitor this patient's response to treatment including medications. We will monitor for emerging side effects and focus on safety issues and improved emotional control. We will also focus on areas of team treatment. We will increase Zyprexa to 5 mg b.i.d. and 10 mg at bedtime. We will discontinue Prozac. Ralph Marie MD (Alex) GM:modl /[id number] NURSING PROG Observed: 12/22/2017 Status: COMPLETED Source: [facility] 8:05 PM CLINIC OTHER CAMPUS REPOSITORY O ID: [id number] Author: Cortney Nolasco) JOHNIE Calero Service: Nursing Author Type: Registered Nurse Type: Nursing Progress Note Filed: 12/23/2017 5:02 AM Note Text: Nursing Progress Note Patient Name: Radha Lomax Patient Location: [id number]* Daily Note: Patient appears anxious, bright and euphoric. Patient is friendly, cooperative and compliant with medication. Speech is clear pressured and rambling. Patient denies SI, HI, AH, VH, and thoughts of self harm. Patient contracts for safety. Patient denies depression and rates anxiety 11/15. Patient states her anxiety does it's own thing. Patient states she feels really good. I have some anxious moments. Patient states I'm working on slowing my body down and letting my mind and body correlate. Patient states she is sleeping well and reports good appetite. Patient complains of sinus congestion. Patient encouraged to seek staff with any concerns. Will continue to monitor. 12/22/17 0400 Patient up at nurses station. Patient shaking head, torso and arms and asks for zyprexa for anxiety. Patient encouraged to use coping skills. Patient talks about enthusiasm for singing and stops shaking. Patient given hot packs and blankets for comfort. Patient states anxiety is better. Patient encouraged to go back to sleep. Patient resting in bed, will continue to monitor. This note was completed by: Cortney Calero RN [facility] Observed: 12/22/2017 Status: COMPLETED Source: [facility] 1:52 PM CLINIC OTHER CAMPUS REPOSITORY O ID: [id number] Author: Ama (Therapist) Mylene Crain Service: Art Therapy Author Type: Therapist Type: Allied Health Filed: 12/22/2017 1:55 PM Note Text: PROGRESS NOTE BEHAVIORAL HEALTH Topic of Note: Group Participation SERVICE DATE: 12/22/2017 SERVICE TIME: 10:00-11:30 -A-Pt stated that they are feeling strong. Pt presented with moderate level of energy and appropriate affect. Pt actively participated in activity and discussion. Pt. talked about trying to hide her smoking from her family.-I- Facilitated group re: personal boundaries .Therapist provided opportunity to express thoughts and feelings. -E- Pt. could benefit from continued support and talking about her thoughts and feelings in group. SIGNATURE: Ama Crain LPC PATIENT NAME: aRdha Lomax DATE: December 22, 2017 TIME: 1:53 PM PAGER/CONTACT #: RACHEL PROG Observed: 12/22/2017 Status: COMPLETED Source: [facility] 10:35 AM CLINIC OTHER CAMPUS REPOSITORY O ID: [id number] Author: Andrae Cox Service: General Internal Medicine Author Type: Physician Type: Consult Progress Note Filed: 12/22/2017 10:35 AM Note Text: INPATIENT PROGRESS NOTE SERVICE DATE: 12/22/2017 SERVICE TIME: 10:35 AM Subjective CHIEF COMPLAINT: Suicidal ideation PRIMARY SERVICE: Psych INTERVAL HPI: no changes medically Current hospital medications: OLANZapine 5 mg tab(s) (ZyPREXA) 5 mg ORAL BID 9a/4p QUEtiapine 200 mg tab(s) (SEROquel) 200 mg ORAL AT BEDTIME sodium chloride 0.65 % 2 [place] (AYR, OCEAN) 2 [place] EACH NOSTRIL PRN docusate sodium 100 mg cap(s) (COLACE) 100 mg ORAL BID PRN lamoTRIgine (LaMICtal) tab(s) 150 mg 150 mg ORAL BID buPROPion XL 150 mg tab(s) (WELLBUTRIN XL) 150 mg ORAL DAILY FLUoxetine 20 mg cap(s) (PROzac) 20 mg ORAL DAILY dextromethorphan 60 mg oral liquid ER (DELSYM) 60 mg ORAL AT BEDTIME Lip Protectant with Sunscreen SPF 15 1 application Stick (Blistex) 1 application TOPICAL PRN benzocaine-menthol 1 Lozenge (CEPACOL) 1 Lozenge MUCOUS MEMBRANE (TOPICAL MOUTH AND THROAT) q 2 H PRN traZODone 100 mg tab(s) (DESYREL) 100 mg ORAL HS PRN acetaminophen 650 mg tab(s) (TYLENOL) 650 mg ORAL q 6 H PRN aluminum-magnesium hydroxide-simethicone 200-200-20 mg/5 mL 30 mL (MAALOX,MYLANTA,MAG-AL PLUS) 30 mL ORAL q 4 H PRN magnesium hydroxide 400 mg/5 mL 30 mL (MOM) 30 mL ORAL DAILY PRN OLANZapine orally disintegrating 5 mg tab(s) (ZyPREXA ZYDIS) 5 mg ORAL q 4 H PRN DULoxetine 60 mg cap(s) (CYMBALTA) 60 mg ORAL DAILY tolterodine ER 2 mg cap(s) (DETROL LA) 2 mg ORAL AT BEDTIME atorvastatin 20 mg tab(s) (LIPITOR) 20 mg ORAL AT BEDTIME Objective PHYSICAL EXAM: BP 143/54 Pulse 80 Temp (Src) 98.1 (Temporal Artery) Resp 18 Ht 5' 2.992 (1.60m) Wt 156 lb (70.8kg) SpO2 97% BMI 27.64 kg/(m2). GENERAL: Alert, no distress, cooperative LUNGS: Lungs clear to auscultation, Good diaphragmatic excursion CARDIAC: Normal S1 and S2; no rubs, murmurs, or gallops ABDOMEN: Abdomen soft, non-tender, BS normal, No masses or organomegaly DATA: Diagnostic tests reviewed for today's visit: No new labs Assessment/Plan Principal Problem: Suicidal ideation POA: Yes Assessment AND Plan: psych Active Problems: Slow transit constipation POA: Yes Assessment AND Plan: stable Tension type headache POA: Yes Assessment AND Plan: no changes Resolved Problems: * No resolved hospital problems. * Discussed with nursing SIGNATURE: Andrae Cox MD PATIENT NAME: Radha Lomax DATE: 12/22/2017 TIME: 10:35 AM PAGER: NURSING PROG Observed: 12/22/2017 Status: COMPLETED Source: [facility] 9:03 AM CLINIC OTHER CAMPUS REPOSITORY O ID: [id number] Author: Goldie Nolasco) JOHNIE Arroyo Service: Behavioral Health Author Type: Registered Nurse Type: Nursing Progress Note Filed: 12/22/2017 3:49 PM Note Text: Nursing Progress Note Patient Name: Radha Lomax Patient Location: [place] [address] [address]* Daily Note: RN has been notified by multiple staff member that pt shaking this morning. Each time RN out to assess pt for safety and anxiety, she states she is OK and is not shaking. RN notified by another pt that staff assistance is needed immediately for Radha in . RN approached pt in - she is not shaking, and is filling her menu out for the next day. She states she is OK. RN asks pt to follow RN into room for privacy for assessment. Pt states she is unable to walk, and begins to shake. RN set limits with pt, offered pt positive reassurance, and assisted pt to feet. She able to walk to room safely. She tells RN, I love you. RN again set limits with pt. Pt appears disorganized, presents with loose associations, and is labile. It is difficult to follow her flow of conversation, and requires frequent redirection to keep her focused. She denies any dep/SI/HI/AVH. She endorses some anxiety, and is unable to ID any cause. RN discussed coping skills with pt. She acknowledges that spending quiet time alone is effective for anxiety. Pt is encouraged to attend groups and to shower today. Pt to be closely monitored on unit. Pt to report concerns to staff. 0935: Pt notifies RN that she would like to nap. RN encourages pt to nap today as needed, due to little sleep overnight. 0950: RN sees pt in hallway, hugging staff members. Pt then approaches [facility] station asking for cepacol- RN administered as ordered. Pt tells RN that she had a miller of energy just hit her, and is no longer tired. Will continue to monitor. 1535: Pt notified RN that her legs feel swollen. RN notes note non-pitting edema in ankles/feet. Pt denies any pain. Will discuss with medical doctor in AM. This note was completed by: Goldie Arroyo RN NURSING PROG Observed: 12/22/2017 Status: COMPLETED Source: [facility] 1:00 AM CLINIC OTHER CAMPUS REPOSITORY HNO ID: [id number] Author: Keith (Rn) JOHNIE Quesada Service: Behavioral Health Author Type: Registered Nurse Type: Nursing Progress Note Filed: 12/22/2017 1:44 AM Note Text: At 0020, pt finished eating her snack, and now removing all the puzzles, markers, and some games from shelves in day area. RN assisted pt w/ replacing all games and puzzles. Pt says she feels like she has to get rid of some energy, so wanted to stay busy by organizing shelves, wiping down all the tables in day [place]. Rn thanked pt, but redirected pt to try to wind down to try to get sleep. Pt refuses offer for trazodone at this time, denies having need for med for anxiety; says anxiety is tolerable. Pt says she is going to try reading. RN verbalized understanding; will continue to monitor. At 0100, pt finished reading; ate another set of hemalatha crackers and peanut butter. Pt w/ rambling speech; talking about how she and her met, talking about her dog. RN and pt discussed interventions to manage insomnia. RN medicated pt w/ trazodone dose per request. Rn walked w/ pt back to her room. Pt's gait remains steady. Pt brushed her teeth, used bathroom, and went to bed. RN will continue to monitor. PROGRESS Observed: 12/22/2017 Status: COMPLETED Source: [facility] 12:00 AM CLINIC OTHER CAMPUS REPOSITORY [facility] ID: [id number] Author: Ralph Marie Service: Psychiatry Author Type: Physician Type: Progress Notes Filed: 12/23/2017 8:37 PM Note Text: [facility] - Progress Note PATIENT NAME: RADHA LOMAX CSN: [id number] DATE OF : 1960 SEX/AGE: F/57 PATIENT [place]: [place] [facility] [place] LOCATION: [facility] [place] DATE OF SERVICE: 12/22/2017 This patient was seen and interviewed, and there was communication with nursing staff. There was review of clinical chart and recent medical orders. CHIEF COMPLAINT/REASON FOR ADMISSION: This patient was admitted to the hospital because of problems with depression and suicidal ideation. This patient is reported to have problems with anxiety, obsessionality, and panic symptoms. This patient demonstrates significant depressive symptoms contributing to problems in daily functioning. CURRENT CLINICAL HISTORY: Clinical staff members reported this patient was having multiple somatic complaints. She reported feeling weak and shaky first thing in the morning, but appeared to recover from this. The patient continued to be somewhat disorganized with loose associations, but seemed to be less manic. The patient was attending groups and classes. The patient described feeling that she had swollen legs, but there was no significant edema noted. The patient was medication compliant. She was given further significant changes in medication on this date. During individual contact, this patient was anxious and restless. The patient was jumping from subject to subject. The patient appeared to be having a decrease in her racing thoughts, however. She seemed aware of this and that she was less anxious. The patient was minimizing of side effects from the recent medication changes apart from the medication, Seroquel at bedtime, which she claimed to cause her to have swollen feet. She appeared to have a continued problem with the medication, Seroquel, and had been nagging about its lack of being used. She had been given the medication, Zyprexa in 2 standing doses through the day, and this appeared to be giving her benefit with less sense of being manic or racing. The patient was given the option of taking the Zyprexa also at bedtime. She has chose to have this dosage. MENTAL STATUS EXAMINATION: APPEARANCE AND BEHAVIOR: This patient is awake, alert during interview, but appears somewhat disheveled in clothing and appearance. This patient appears to attempt to be cooperative during interview, but shows very poor insight into current symptoms or difficulties. This patient appears fidgety and restless during interview. AFFECT: This patient appears blunted and anxious. This patient continues to present with lability of affect and overreactivity to stimulus during interview. SPEECH: Shows some evidence of sadness and anxiety in tone, but otherwise speech is age appropriately normal for content and structure. MOOD: This patient continues to present with sadness and depression. This patient describes minimal feelings of anger or irritability. This patient continues to present with anxiety. THOUGHT PROCESS: This patient continues to present with obsessionality, worries, or ruminative thinking. INSIGHT: Continues to be poor for treatment issues. JUDGMENT: This patient continues to appear to have difficulties in making sound reasonable decisions in interactions with others. SUICIDAL OR SELF-HARM IDEATION: Denied. HOMICIDAL IDEATION: This patient denies any thoughts to kill or harm others. ASSOCIATIONS: This patient gives continued evidence of loosened associations. ATTENTION, CONCENTRATION, AND FOCUS: This patient continues to have deficits, inability to have mental attention and focus. PSYCHOSIS: This patient denies any type of psychotic symptom including hallucinations or delusions. ENERGY LEVEL: This patient continues to present with problems of anergia and mental fatigue. CLINICAL ASSESSMENT: This patient continues to demonstrate significant symptoms and problems requiring ongoing hospital care. Vital signs were evaluated and were within normal parameters. This patient describes some minor side effects related to medication therapy, but these seem to be tolerated by the patient. DIAGNOSES: DSM AXIS I: 296.63, bipolar 1 disorder, most recent episode, mixed, severe, without psychotic features. Rule out, 296.90, mood disorder, not otherwise specified. 300.02 generalized anxiety disorder. PLAN: We will continue to monitor this patient's response to treatment including medications. We will monitor for emerging side effects and focus on safety issues and improved emotional control. We will also focus on areas of team treatment. We will increase Zyprexa to 5 mg t.i.d. We will discontinue Seroquel. Ralph Marie MD (Alex) GM:toni /[id number] NURSING PROG Observed: 12/21/2017 Status: COMPLETED Source: [facility] 11:45 PM [facility] REPOSITORY HNO ID: [id number] Author: Keith (Rn) JOHNIE Quesada Service: Behavioral Health Author Type: Registered Nurse Type: Nursing Progress Note Filed: 12/22/2017 1:35 AM Note Text: Pt A and Ox3; calm. Pt's gait steady; stopped at nurses station to say she was going to day area to have snack. Pt denies having any other needs. RN will continue to monitor. NURSING PROG Observed: 12/21/2017 Status: COMPLETED Source: [facility] 9:55 PM [facility] REPOSITORY HNO ID: [id number] Author: Keith Nolasco) JOHNIE Quesada Service: Behavioral Health Author Type: Registered Nurse Type: Nursing Progress Note Filed: 12/22/2017 12:02 AM Note Text: At 1943, pt initially calm, sitting at back of nurses station w/ her ; asked to meet her RN. This Rn introduced self to pt; asked pt for a minute to gather report sheet at meet her and pt. Pt then suddenly crying out repeatedly, and rocking back and forth in her chair. Pt difficult to console by , but calmed as more staff arrived to provide assistance. Pt unable to state what is wrong, but able to walk back to her room w/ light assist from 1 staff on each side. While walking back to room, staff complimented pt on her shirt, and pt immediately able to stop crying to smile and talk appropriately to describe where and when she bought the shirt. Pt climbed into bed once in her room; less restless, and cooperative. At 1949, Rn reviewed w/ pt and her pt's scheduled and prn medications. RN medicated pt w/ ativan 0.5mg po for anxiety. Pt's remained at bedside, w/ pt receptive to his consolation. Pt and ok w/ RN returning to nurses station to notify Dr. Marie. At 2010, Dr. Marie made aware of pt's behaviour, interventions, and outcome. No orders received, as pt already has prn zydis ordered. RN returned to bed and medicated her w/ prn dose of zydis as discussed w/ Dr. Marie. Pt cooperative w/ med pass. Pt was restless, w/ pressured, rambling, tangential speech. Pt's 's efforts at consoling pt effective. At 2027, Rn retrieved pt's scheduled bedtime meds per request. Pt cooperative w/ med pass, then immediately went from smiling and thanking RN for his help, to crying out loudly, and resuming her rocking back and forth. Pt's able to immediately calm pt to where she was sobbing and apologizing for her behavior. Pt receptive to support and reassurance. Pt then suddenly brightened and smiled. Pt's reported pt has had emotional lability at home, but never to this extent, and questioned the cause. Pt and her were receptive to support and reassurance; reporedt they trust Dr. Marie's care. Pt then stopped sobbing and resuming conversation about discharge w/ her . RN excused self; pt and agreeable. At 2109, pt calm; reported anxiety, but unable to rate, but said she felt much better compared to earlier this shift at 1942. Pt denied SI, HI, or any hallucinations or delusional thinking. Pt then smiled and said her outburst and behavior since 1942 had just been so her could stay longer. Pt denied having any physical complaints, including pain, dizziness, fatigue. RN had pt's leave unit for the night. cooperative; said goodbye. Pt remained in control; denied having any needs or concerns; remained in bed. At 2155, pt up to nurses station; gait steady til she was only about 4 feet from nurses station when instead of walking to nurses station, she walked to where she was standing in front of peers watching tv. Pt then acted faint; but caught herself w/ assist from nearby staff. Pt complained of generalized aches, and said she was walking up to the nurses station to ask for tylenol when she felt dizzy. Rn asked pt why she walked in front of tv where peers were instead of coming to window where she saw RN. Pt began to sob. Rn redirected pt, and pt consoleable. Pt's legs regained their strength. Pt denied need to sit in chair. RN and pt discussed interventions. RN medicated pt w/ tylenol prn dose. PT denied having any other needs or complaints; returned to bed w/ standby assist x 1. Rn will continue to monitor. ALLIED HEALTH Observed: 12/21/2017 Status: COMPLETED Source: [facility] 4:46 PM [facility] OTHER [place] REPOSITORY HNO ID: [id number] Author: Olena (Therapist) Mylene Gambino Service: Behavioral Health Author Type: Therapist Type: Allied Health Filed: 12/21/2017 4:47 PM Note Text: PROGRESS NOTE BEHAVIORAL HEALTH Topic of Note: Group Participation SERVICE DATE: 12/21/2017 SERVICE TIME: [id number] SIGNATURE: Olena Gambino, [facility] PATIENT NAME: Radha Lomax DATE: December 21, 2017 TIME: 4:46 PM PAGER/CONTACT #: -A-Pt stated that they are feeling accepted and manic. Pt presented with moderate level of energy and appropriate affect. Pt actively participated in activity and discussion. She identified her safe place as a farm. -I- Facilitated group re: Safe place.Therapist provided opportunity to express thoughts and feelings. -E- Pt. Could benefit from continued opportunities to express thoughts and feelings in a supportive environment. ALLIED HEALTH Observed: 12/21/2017 Status: COMPLETED Source: [facility] 2:22 PM [facility] OTHER [place] REPOSITORY HNO ID: [id number] Author: Ama (Therapist) Mylene Crain Service: Art Therapy Author Type: Therapist Type: Allied Health Filed: 12/21/2017 2:32 PM Note Text: PROGRESS NOTE BEHAVIORAL HEALTH Topic of Note: Group Participation SERVICE DATE: 12/21/2017 SERVICE TIME: 9:40-10:45 -A-Pt stated that they are feeling happy. Pt presented with high level of energy and appropriate affect. Pt actively participated in activity and discussion. Pt. appeared hypomanic. She isolated words during discussions and sang songs that she thought were related. Her mood shifted quickly. She announced that she had accepted herself and then cried because she was so ashamed of having a mental illness that she harmed herself. She wanted to take a piece of artwork to copy the Serenity Prayer even after she was given a copy of the Serenity Prayer. She attempted to dominate to group discussion and wanted to stay to sweep the floor after saying that when she is manic I clean until it makes me sick. Pt. Has no insight into cause and effect. -I- Facilitated group re: Coping skills categories . Therapist provided opportunity to express thoughts and feelings. -E- Pt. could benefit from continued support and talking about her thoughts and feelings in group. SIGNATURE: Ama Crain LPC PATIENT NAME: Radha Lomax DATE: December 21, 2017 TIME: 2:22 PM PAGER/CONTACT #: CONSULT PROG Observed: 12/21/2017 Status: COMPLETED Source: [facility] 9:41 AM CLINIC OTHER CAMPUS REPOSITORY O ID: [id number] Author: Andrae Cox Service: General Internal Medicine Author Type: Physician Type: Consult Progress Note Filed: 12/21/2017 9:42 AM Note Text: INPATIENT PROGRESS NOTE SERVICE DATE: 12/21/2017 SERVICE TIME: 9:41 AM Subjective CHIEF COMPLAINT: Suicidal ideation PRIMARY SERVICE: Psych INTERVAL HPI: no changes medically Current hospital medications: sodium chloride 0.65 % 2 [place] (AYR, OCEAN) 2 [place] EACH NOSTRIL PRN QUEtiapine 100 mg tab(s) (SEROquel) 100 mg ORAL AT BEDTIME docusate sodium 100 mg cap(s) (COLACE) 100 mg ORAL BID PRN lamoTRIgine (LaMICtal) tab(s) 150 mg 150 mg ORAL BID buPROPion XL 150 mg tab(s) (WELLBUTRIN XL) 150 mg ORAL DAILY FLUoxetine 20 mg cap(s) (PROzac) 20 mg ORAL DAILY dextromethorphan 60 mg oral liquid ER (DELSYM) 60 mg ORAL AT BEDTIME Lip Protectant with Sunscreen SPF 15 1 application Stick (Blistex) 1 application TOPICAL PRN benzocaine-menthol 1 Lozenge (CEPACOL) 1 Lozenge MUCOUS MEMBRANE (TOPICAL MOUTH AND THROAT) q 2 H PRN traZODone 100 mg tab(s) (DESYREL) 100 mg ORAL HS PRN acetaminophen 650 mg tab(s) (TYLENOL) 650 mg ORAL q 6 H PRN aluminum-magnesium hydroxide-simethicone 200-200-20 mg/5 mL 30 mL (MAALOX,MYLANTA,MAG-AL PLUS) 30 mL ORAL q 4 H PRN magnesium hydroxide 400 mg/5 mL 30 mL (MOM) 30 mL ORAL DAILY PRN OLANZapine orally disintegrating 5 mg tab(s) (ZyPREXA ZYDIS) 5 mg ORAL q 4 H PRN LORazepam 0.5 mg tab(s) (ATIVAN) 0.5 mg ORAL BID PRN DULoxetine 60 mg cap(s) (CYMBALTA) 60 mg ORAL DAILY tolterodine ER 2 mg cap(s) (DETROL LA) 2 mg ORAL AT BEDTIME atorvastatin 20 mg tab(s) (LIPITOR) 20 mg ORAL AT BEDTIME Objective PHYSICAL EXAM: BP 138/66 Pulse 85 Temp (Src) 98.8 (Temporal Artery) Resp 18 Ht 5' 2.992 (1.60m) Wt 156 lb (70.8kg) SpO2 98% BMI 27.64 kg/(m2). GENERAL: Alert, no distress, cooperative LUNGS: Lungs clear to auscultation, Good diaphragmatic excursion CARDIAC: Normal S1 and S2; no rubs, murmurs, or gallops ABDOMEN: Abdomen soft, non-tender, BS normal, No masses or organomegaly DATA: Diagnostic tests reviewed for today's visit: No new labs Assessment/Plan Principal Problem: Suicidal ideation POA: Yes Assessment AND Plan: psych Active Problems: Slow transit constipation POA: Yes Assessment AND Plan: stable Tension type headache POA: Yes Assessment AND Plan: no changes Resolved Problems: * No resolved hospital problems. * Discussed with nursing SIGNATURE: Andrae Cox MD PATIENT NAME: Radha Lomax DATE: 12/21/2017 TIME: 9:41 AM PAGER: NURSING PROG Observed: 12/21/2017 Status: COMPLETED Source: [facility] 9:28 AM CLINIC OTHER CAMPUS REPOSITORY HNO ID: [id number] Author: Goldie (Rn) JOHNIE Arroyo Service: Behavioral Health Author Type: Registered Nurse Type: Nursing Progress Note Filed: 12/21/2017 2:12 PM Note Text: Nursing Progress Note Patient Name: Radha Lomax Patient Location: [place] [address] [address]* Daily Note: Pt at [facility] station for AM meds. Pt reports having a wonderful night last night. She does not appear concerned that she slept, but is very happy she watched [employer] and had good conversation with other pts on unit. She denies issues with appetite. She says that Dr. Marie, is not just a great doctor, but a friend to her, and that her parents agree, as well. Pt's speech is rapid and pressured. She appears to have loose associations. Her behavior is restless and hyperactive. She describes her mood as anxious. She appears euphoric and labile. She is bright at some points, tearful for seconds at others, and appears anxious at times- shaking her head back and forth. Verbal de-escalation and redirection is minimally effective. It is difficult to keep pt on topic of conversation. She goes on about going on vacation to [facility] or the [facility] for her and her 's anniversary, and plans to meet with a reservations agent today or tomorrow- she says she will be d/c'ed today. She rapidly changes topics to her medications, presybeterian, what time she will wake up in the mornings, birthday cards and her daily routines. She is reluctant to take her medications. She requests the packs the meds come to to examine them, and lines them up in a specific order to the pt (although it is unclear to RN what the exact order is exactly). She says she is reluctant to take the prozac because she fears it will burn her throat. However, she does take all meds eventually. She requests to keep the packs with her. Pt then questions whether she is ready to go home today at one point. She is encouraged to attend groups and to shower today. Pt to be closely monitored on unit. Pt to report concerns to staff. 1115: Pt found in another pt's room. Another RN redirected pt, who apologized, but said she washed this patient's clothing. 1200: RN notified by tech that pt hugging/touching other pts. RN also notified that pt folding other individuals clothing and undergarments. RN discussed limits and appropriate behavior on unit. Pt continues to be labile, crying for just a couple seconds. She says that she feels she is not ready to go home, but then automatically says that she is ready to go home, and if Dr. Marie thinks she should go, then she will go. She then laughs, walks away, and begins talking to another RN about a neighbor. 1410: Pt has been intrusive with other pts as well as frequent visits to [facility] station. This note was completed by: Goldie Arroyo RN PROGRESS Observed: 12/21/2017 Status: COMPLETED Source: [facility] 12:00 AM CLINIC OTHER CAMPUS REPOSITORY O ID: [id number] Author: Ralph Marie Service: Psychiatry Author Type: Physician Type: Progress Notes Filed: 12/22/2017 5:57 PM Note Text: [facility] - Progress Note PATIENT NAME: RADHA LOMAX CSN: [id number] DATE OF : 1960 SEX/AGE: F/57 PATIENT TYPE: I HOSP S[facility]: [facility] LOCATION: [facility] [place] DATE OF SERVICE: 12/21/2017 This patient was seen and interviewed, and there was communication with nursing staff. There was review of clinical chart and recent medical orders. CHIEF COMPLAINT/REASON FOR ADMISSION: This patient was admitted to the hospital because of problems with depression and suicidal ideation. This patient is reported to have problems with anxiety, obsessionality, and panic symptoms. This patient demonstrates significant depressive symptoms contributing to problems in daily functioning. CURRENT CLINICAL HISTORY: Clinical staff members reported this patient was up in the morning and seemed to be having rapid and pressured speech with loose associations. She seemed restless, hyperactive, but in a very positive mood. She appeared at times euphoric and labile. She could be labile with tearfulness at other times and anxious. The patient was reluctant at times taking medication. The patient was attending groups and classes. During individual contact, this patient seemed to be quite obsessional and showed evidence of racing and obsessional thoughts. The patient was jumping from one subject to another. The patient had little awareness of this. The patient was reminded that she had described in a meeting with her how she wanted to be forever and that later in the day she had described a strong desire to divorce. She seemed to talk about things that seemed quite minimal, but it had just been upsetting to her and she expanded this to blame her for 16 years of mental illness. She was vague about specifics with this. Later, there was a meeting with the patient and her to discuss her current situation. There were discussions about need for help with her mood lability and instability and for her naman. The patient seemed to have difficulties understanding this. MENTAL STATUS EXAMINATION: APPEARANCE AND BEHAVIOR: This patient is awake, alert during interview, but appears somewhat disheveled in clothing and appearance. This patient appears to attempt to be cooperative during interview, but shows very poor insight into current symptoms or difficulties. This patient appears anxious and tense during interview. AFFECT: This patient appears blunted and anxious. This patient presents with minimal lability or overreactivity during interview. SPEECH: Shows some evidence of sadness and anxiety in tone, but otherwise speech is age appropriately normal for content and structure. MOOD: This patient continues to present with sadness and depression. This patient describes minimal feelings of anger or irritability. This patient continues to present with anxiety. THOUGHT PROCESS: This patient continues to present with obsessionality, worries or ruminative thinking. INSIGHT: Continues to be poor for treatment issues. JUDGMENT: This patient continues to appear to have difficulties in making sound reasonable decisions in interactions with others. SUICIDAL OR SELF-HARM IDEATION: This patient describes an overall decreased tendency to have suicidal or self-harm ideation. HOMICIDAL IDEATION: This patient denies any thoughts to kill or harm others. ASSOCIATIONS: This patient gives continued evidence of loosened associations. ATTENTION, CONCENTRATION, AND FOCUS: This patient continues to have deficits, inability to have mental attention and focus. PSYCHOSIS: This patient denies any type of psychotic symptom including hallucinations or delusions. ENERGY LEVEL: This patient continues to present with problems of anergia and mental fatigue. CLINICAL ASSESSMENT: This patient continues to demonstrate significant symptoms and problems requiring ongoing hospital care. Vital signs were evaluated and were within normal parameters. This patient describes some minor side effects related to medication therapy, but these seem to be tolerated by the patient. DIAGNOSES: DSM AXIS I: 296.63, bipolar 1 disorder, most recent episode, mixed, severe, without psychotic features. Rule out, 296.90, mood disorder, not otherwise specified. 300.02, generalized anxiety disorder. PLAN: We will continue to monitor this patient's response to treatment including medications. We will monitor for emerging side effects and focus on safety issues and improved emotional control. We will also focus on areas of team treatment. We will increase Seroquel to 200 mg at bedtime. We will add Zyprexa 5 mg b.i.d. Ralph Marie MD (Alex) GM:toni /[id number] NURSING PROG Observed: 12/20/2017 Status: COMPLETED Source: [facility] 11:41 PM CLINIC OTHER CAMPUS REPOSITORY [facility] ID: [id number] Author: Marcy (Rn) JOHNIE Veras Service: Nursing Author Type: Registered Nurse Type: Nursing Progress Note Filed: 12/20/2017 11:48 PM Note Text: Nursing Progress Note Patient Name: Radha Lomax Patient Location: [id number]/[id number]* Daily Note: Up and about all evening. Pleasant and social. Mildly intrusive with staff but accepts limits and redirection without difficulty. Pt discusses marital issues openly and continues to say that she wants to pursue ending her marriage. Encouraged pt not to make such a major life decision while hospitalized-pt states I know, but I can't get better there and I've been sick for 16 years.. Pt denies suicidal ideation. Pt recognizes that she need to sleep so she chose to comply with hs Seroquel as ordered. Emotional support, limits and direction provided as needed. This note was completed by: Marcy Veras RN NURSING PROG Observed: 12/20/2017 Status: COMPLETED Source: [facility] 1:14 PM CLINIC OTHER CAMPUS REPOSITORY [facility] ID: [id number] Author: Izzy (Rn) JOHNIE Murphy Service: Behavioral Health Author Type: Registered Nurse Type: Nursing Progress Note Filed: 12/20/2017 1:38 PM Note Text: Nursing Progress Note Patient Name: Radha Lomax Patient Location: [place] [address] [address]* Daily Note: vss, Middle aged WF, casually dressed , med compliant, well known to staff. Restless, pacing, labile. Smiling inappropriately, tearful the next. Medicated for agitation/anxiety. Calling at 0730 this morning. Speech rapid, pressured, repetitive. Talking frequently to multiple patients, relaying history, problems with , pending divorce, etc. Limits set. 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 Multiple requests at the nurses station, somatic, ie headache, GI upset, back pain, sore throat, chapped lips, etc. Redirected. prns administered . Poor sleep. Pt has slept 2-3 hours only in the last 3 days. Contracts for safety. denies SI, HI, AVH. . Britt FORD CNP here to see. q 15 minute routine safety checks maintained throughout shift, support given This note was completed by: Izzy Murphy RN PROGRESS Observed: 12/20/2017 Status: COMPLETED Source: [facility] 12:37 PM [facility] OTHER CAMPUS REPOSITORY [facility] ID: [id number] Author: Britt Frausto ([facility]) Gregory Service: Behavioral Health Author Type: Nurse Practitioner Type: Progress Notes Filed: 12/20/2017 12:49 PM Note Text: PROGRESS NOTE BEHAVIORAL HEALTH SERVICE DATE: 12/20/2017 SERVICE TIME: 20mns The Interdisciplinary team met and reviewed treatment goals and discharge planning. 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 Chart and nursing database reviewed. Spoke with nursing, and reported that pt slept 3 hours in the last two days. Says that she is pacing on the unit, intrusive at times, and states that her is the gas light. Received zyprexa and ativan in the last 24 hours. Mood is labile tearul in the am. Pt reports, my is a gas light. She reported that her has taken her name off of the checks, and she and her therapist called the bank about this. Told her, he took you off awhile ago. She reported that her had a gun underneathe his pillow, and did not the reason why. She says that I am a hard working woman, I have worked at [employer] for 28 years. Then goes on about how her father left her money, and that her spent it on the [employer] business. Says that she had to take care of her put him on her insurance. I feel my medications are keeping me up. Also experiencing heartburn, and does not know which medication it is. Vacilates on whether she will return home or if she is going to [facility], [facility] women's al[facility]. She denies SI/HI, however, says notices that her thoughts are jumpy. Objective PHYSICAL EXAM: BP (!) 117/49 Pulse 66 Temp 36.9 ?C (98.4 ?F) (Temporal Artery) Resp 20 Ht 160 cm (5' 2.99) Wt 70.8 kg (156 lb) SpO2 98% BMI 27.64 kg/m? MENTAL STATUS EXAMINATION: Appearance: Casually dressed Behavior: Disorganized Orientation: Person, Place, Time and Situation Speech/Language: Pressured Mood/Affect: Labile Thought Form: Flight of ideas Thought Content: Ruminations: My is the Gas light. Suicidal Ideations: No suicidal ideation, intent or plan. Homicidal Ideations: No homicidal ideation, intent or plan. Insight: Limited Judgment: Limited Memory/Cognition: Mildly Impaired Psychomotor: Agitated NEW PROBLEMS ON UNIT SINCE LAST ENCOUNTER: Agitated, intrusive, needs to be redirected Current hospital medications: sodium chloride 0.65 % 2 [place] (AYR, OCEAN) 2 [place] EACH NOSTRIL PRN docusate sodium 100 mg cap(s) (COLACE) 100 mg ORAL BID PRN lamoTRIgine (LaMICtal) tab(s) 150 mg 150 mg ORAL BID buPROPion XL 150 mg tab(s) (WELLBUTRIN XL) 150 mg ORAL DAILY FLUoxetine 20 mg cap(s) (PROzac) 20 mg ORAL DAILY dextromethorphan 60 mg oral liquid ER (DELSYM) 60 mg ORAL AT BEDTIME Lip Protectant with Sunscreen SPF 15 1 application Stick (Blistex) 1 application TOPICAL PRN benzocaine-menthol 1 Lozenge (CEPACOL) 1 Lozenge MUCOUS MEMBRANE (TOPICAL MOUTH AND THROAT) q 2 H PRN traZODone 100 mg tab(s) (DESYREL) 100 mg ORAL HS PRN acetaminophen 650 mg tab(s) (TYLENOL) 650 mg ORAL q 6 H PRN aluminum-magnesium hydroxide-simethicone 200-200-20 mg/5 mL 30 mL (MAALOX,MYLANTA,MAG-AL PLUS) 30 mL ORAL q 4 H PRN magnesium hydroxide 400 mg/5 mL 30 mL (MOM) 30 mL ORAL DAILY PRN OLANZapine orally disintegrating 5 mg tab(s) (ZyPREXA ZYDIS) 5 mg ORAL q 4 H PRN LORazepam 0.5 mg tab(s) (ATIVAN) 0.5 mg ORAL BID PRN DULoxetine 60 mg cap(s) (CYMBALTA) 60 mg ORAL DAILY tolterodine ER 2 mg cap(s) (DETROL LA) 2 mg ORAL AT BEDTIME atorvastatin 20 mg tab(s) (LIPITOR) 20 mg ORAL AT BEDTIME DATA: Diagnostic tests reviewed for today's visit: No new labs Assessment/Plan DIAGNOSIS: PRIMARY: DSM AXIS I: 296.63, bipolar 1 disorder, most recent episode, mixed, severe, without psychotic features. Rule out, 296.90, mood disorder, not otherwise specified. 300.02, generalized anxiety disorder. Continue psychiatric admission on 6400 with Level 2 precautions. Continued stay more time to adjust to medication, and assess medication effectiveness. Dr. Dominguez will continue medical management. Social work is assisting with discharge planning. Patient is encouraged to participate in groups. No use of seclusion or restraint in the past 24 hours. Attending will follow tomorrow. RISK ASSESSMENT: Suicide: low Homicide: low Deliberate Self-Harm: low Aggression: moderate Imminent Physical Self Impairment: low INFORMED CONSENT: Yes, completed with the Patient. Discussed the risks, benefits and alternatives to the medication(s) recommended. Consent was given. INTERVENTION: Biological: Encourage medication adherence Psychological: Encourage groups and activities to increase coping skills Social: Encourage interaction with peers and staff to increase communication skills DISCHARGE PLANNING: per primary team SIGNATURE: Britt Jenkins APRN.CNP PATIENT NAME: Radha Lomax DATE: December 20, 2017 TIME: 12:37 PM PAGER/CONTACT#: CONSULT PROG Observed: 12/20/2017 Status: COMPLETED Source: [facility] 8:33 AM CLINIC OTHER CAMPUS REPOSITORY [facility] ID: [id number] Author: Andrae Cox Service: General Internal Medicine Author Type: Physician Type: Consult Progress Note Filed: 12/20/2017 8:34 AM Note Text: INPATIENT PROGRESS NOTE SERVICE DATE: 12/20/2017 SERVICE TIME: 8:34 AM Subjective CHIEF COMPLAINT: Suicidal ideation PRIMARY SERVICE: Psych INTERVAL HPI: no changes medically Current hospital medications: docusate sodium 100 mg cap(s) (COLACE) 100 mg ORAL BID PRN lamoTRIgine (LaMICtal) tab(s) 150 mg 150 mg ORAL BID buPROPion XL 150 mg tab(s) (WELLBUTRIN XL) 150 mg ORAL DAILY FLUoxetine 20 mg cap(s) (PROzac) 20 mg ORAL DAILY dextromethorphan 60 mg oral liquid ER (DELSYM) 60 mg ORAL AT BEDTIME Lip Protectant with Sunscreen SPF 15 1 application Stick (Blistex) 1 application TOPICAL PRN benzocaine-menthol 1 Lozenge (CEPACOL) 1 Lozenge MUCOUS MEMBRANE (TOPICAL MOUTH AND THROAT) q 2 H PRN traZODone 100 mg tab(s) (DESYREL) 100 mg ORAL HS PRN acetaminophen 650 mg tab(s) (TYLENOL) 650 mg ORAL q 6 H PRN aluminum-magnesium hydroxide-simethicone 200-200-20 mg/5 mL 30 mL (MAALOX,MYLANTA,MAG-AL PLUS) 30 mL ORAL q 4 H PRN magnesium hydroxide 400 mg/5 mL 30 mL (MOM) 30 mL ORAL DAILY PRN OLANZapine orally disintegrating 5 mg tab(s) (ZyPREXA ZYDIS) 5 mg ORAL q 4 H PRN LORazepam 0.5 mg tab(s) (ATIVAN) 0.5 mg ORAL BID PRN DULoxetine 60 mg cap(s) (CYMBALTA) 60 mg ORAL DAILY tolterodine ER 2 mg cap(s) (DETROL LA) 2 mg ORAL AT BEDTIME atorvastatin 20 mg tab(s) (LIPITOR) 20 mg ORAL AT BEDTIME Objective PHYSICAL EXAM: BP 148/64 Pulse 62 Temp (Src) 98.6 (Tympanic) Resp 19 Ht 5' 2.992 (1.60m) Wt 156 lb (70.8kg) SpO2 98% BMI 27.64 kg/(m2). GENERAL: Alert, no distress, cooperative LUNGS: Lungs clear to auscultation, Good diaphragmatic excursion CARDIAC: Normal S1 and S2; no rubs, murmurs, or gallops ABDOMEN: Abdomen soft, non-tender, BS normal, No masses or organomegaly DATA: Diagnostic tests reviewed for today's visit: No new labs Assessment/Plan Principal Problem: Suicidal ideation POA: Yes Assessment AND Plan: psych Active Problems: Slow transit constipation POA: Yes Assessment AND Plan: stable Tension type headache POA: Yes Assessment AND Plan: no changes Resolved Problems: * No resolved hospital problems. * Discussed with nursing SIGNATURE: Andrae Cox MD PATIENT NAME: Radha Lancaster DATE: 12/20/2017 TIME: 8:34 AM PAGER: NURSING PROG Observed: 12/20/2017 Status: COMPLETED Source: [facility] 1:10 AM CLINIC OTHER CAMPUS REPOSITORY [facility] ID: [id number] Author: Maral (Rn) JOHNIE Griffith Service: Behavioral Health Author Type: Registered Nurse Type: Nursing Progress Note Filed: 12/20/2017 4:12 AM Note Text: Update: Pt at nurses station. Pt states I had an accident. Pt incontinent of urine. Pt cleaned up herself and changed into new gown. Nurse changed linen on bed. Update: Pt at nurses station. Pt states I feel kind of anxious can I have an Ativan or Zyprexa. Pt given 5 mg Zprexa Zydis at 0409 NURSING PROG Observed: 12/19/2017 Status: COMPLETED Source: [facility] 8:20 PM [facility] REPOSITORY [facility] ID: [id number] Author: Maral (Rn) JOHNIE Griffith Service: Behavioral Health Author Type: Registered Nurse Type: Nursing Progress Note Filed: 12/19/2017 9:55 PM Note Text: Daily Note: Pt calm with nursing assessment. Pt denies SI, HI, anxiety, depression, and AVH. Pt attends groups. Pt has rapid pressured speech. Pt pleasant and friendly. Pt makes eye contact. Pt med compliant. Pt states I am ready to go home, I just want to sleep first. I didn't sleep at all last night. I feel maniac. My when he was here visiting me told me to slow down when I am speaking so I am trying not to speak so fast so I am sorry if I am speaking slow. Pt displays adequate hygiene. Pt socially appropriate. Pt encouraged to inform staff of wants and needs. Pt verbalizes safety on unit. Pt Encouraged to attend groups and to maintain hygiene. Will continue to monitor. Pt given PRN trazodone to help sleep at 2128. Pt educated on techniques to help fall alseep. ALLIED HEALTH Observed: 12/19/2017 Status: COMPLETED Source: [facility] 2:15 PM [facility] REPOSITORY [facility]NO ID: [id number] Author: Mylene Caldwell (Ctrs) Service: Behavioral Health Author Type: Recreational Therapist Type: Allied Health Filed: 12/19/2017 5:30 PM Note Text: PROGRESS NOTE BEHAVIORAL HEALTH Topic of Note: Group Participation SERVICE DATE: 12/19/2017 SERVICE TIME: [id number] Assessment: Pt. participated upon invite, her affect was bright, she displayed moderate energy/effort, she engaged in the group discussion and completed the group exercises, was talkative at times and tangential. Intervention: Discussion/Activity on effective communication skills. Evaluation: Encouraged use of effective communication skills to improve interpersonal effectiveness. Pt. would benefit from continued support and therapeutic services as well as the ability to continue developing positive coping skills. SIGNATURE: NA Caldwell PATIENT NAME: Radha Lomax DATE: December 19, 2017 TIME: 5:29 PM PAGER/CONTACT #: CHERYL ELKINS Observed: 12/19/2017 Status: COMPLETED Source: [facility] 12:13 PM [facility] REPOSITORY [facility] ID: [id number] Author: Izzy (Rn) JOHNIE Murphy Service: Behavioral Health Author Type: Registered Nurse Type: Nursing Progress Note Filed: 12/19/2017 12:23 PM Note Text: Nursing Progress Note Patient Name: Radha Lomax Patient Location: [place] [address]/[place] [address]* Daily Note: Am rounds. vss. Middle aged WF , casually dressed and groomed. Well known to staff from multiple admissions. Out to dayhall for meal, med compliant. Frequent redirection required by staff. Pt somatic, prn meds administered for anxiety, headache, etc this morning. Attending groups. Speech rapid, pressured, rambling. I have a brain storm-I bet I could make get well cards at home and send them to patients here! Who owns this hospital? who should I mail these cards to? smiles inappropriately at times. Social w/ peers. Contracts for safety. Denies SI, HI, AVH. q 15 minute routine safety checks maintained throughout shift, support given This note was completed by: Izzy Murphy RN ALLIED HEALTH Observed: 12/19/2017 Status: COMPLETED Source: [facility] 9:30 AM [facility] REPOSITORY [facility] ID: [id number] Author: Jodie LivingstonReiki PractitionerMylene Jacobsen Service: Behavioral Health Author Type: Recreational Therapist Type: Allied Health Filed: 12/19/2017 1:02 PM Note Text: PROGRESS NOTE BEHAVIORAL HEALTH Topic of Note: Group Participation SERVICE DATE: 12/19/2017 SERVICE TIME: [id number] Assessment: Pt. participated upon invite, her affect was bright, she displayed moderate energy/effort, she engaged in the group discussion (talkative at times-with pressured speech) and she completed the group exercises-however had difficulty with decision making. Intervention: Discussion/Activity on coping utilizing leisure skills (exercise/ROM, deep breathing techniques and craft activity.) Evaluation: Pt. was able to identify positive leisure pursuits to use as coping skills. Encouraged use of positive coping and leisure life skills. Pt would benefit from continued support and therapeutic services as well as the ability to continue developing positive coping skills. SIGNATURE: NA Caldwell PATIENT NAME: Radha Lomax DATE: December 19, 2017 TIME: 1:01 PM PAGER/CONTACT #: CONSULT PROG Observed: 12/19/2017 Status: COMPLETED Source: [facility] 9:12 AM CLINIC OTHER CAMPUS REPOSITORY O ID: [id number] Author: Andrae Cox Service: General Internal Medicine Author Type: Physician Type: Consult Progress Note Filed: 12/19/2017 9:13 AM Note Text: INPATIENT PROGRESS NOTE SERVICE DATE: 12/19/2017 SERVICE TIME: 9:13 AM Subjective CHIEF COMPLAINT: Suicidal ideation PRIMARY SERVICE: Psych INTERVAL HPI: no changes medically Current hospital medications: docusate sodium 100 mg cap(s) (COLACE) 100 mg ORAL BID PRN lamoTRIgine (LaMICtal) tab(s) 150 mg 150 mg ORAL BID buPROPion XL 150 mg tab(s) (WELLBUTRIN XL) 150 mg ORAL DAILY FLUoxetine 20 mg cap(s) (PROzac) 20 mg ORAL DAILY dextromethorphan 60 mg oral liquid ER (DELSYM) 60 mg ORAL AT BEDTIME Lip Protectant with Sunscreen SPF 15 1 application Stick (Blistex) 1 application TOPICAL PRN benzocaine-menthol 1 Lozenge (CEPACOL) 1 Lozenge MUCOUS MEMBRANE (TOPICAL MOUTH AND THROAT) q 2 H PRN traZODone 100 mg tab(s) (DESYREL) 100 mg ORAL HS PRN acetaminophen 650 mg tab(s) (TYLENOL) 650 mg ORAL q 6 H PRN aluminum-magnesium hydroxide-simethicone 200-200-20 mg/5 mL 30 mL (MAALOX,MYLANTA,MAG-AL PLUS) 30 mL ORAL q 4 H PRN magnesium hydroxide 400 mg/5 mL 30 mL (MOM) 30 mL ORAL DAILY PRN OLANZapine orally disintegrating 5 mg tab(s) (ZyPREXA ZYDIS) 5 mg ORAL q 4 H PRN LORazepam 0.5 mg tab(s) (ATIVAN) 0.5 mg ORAL BID PRN DULoxetine 60 mg cap(s) (CYMBALTA) 60 mg ORAL DAILY tolterodine ER 2 mg cap(s) (DETROL LA) 2 mg ORAL AT BEDTIME atorvastatin 20 mg tab(s) (LIPITOR) 20 mg ORAL AT BEDTIME Objective PHYSICAL EXAM: BP 148/64 Pulse 62 Temp (Src) 98.6 (Tympanic) Resp 19 Ht 5' 2.992 (1.60m) Wt 156 lb (70.8kg) SpO2 98% BMI 27.64 kg/(m2). GENERAL: Alert, no distress, cooperative LUNGS: Lungs clear to auscultation, Good diaphragmatic excursion CARDIAC: Normal S1 and S2; no rubs, murmurs, or gallops ABDOMEN: Abdomen soft, non-tender, BS normal, No masses or organomegaly DATA: Diagnostic tests reviewed for today's visit: No new labs Assessment/Plan Principal Problem: Suicidal ideation POA: Yes Assessment AND Plan: psych Active Problems: Slow transit constipation POA: Yes Assessment AND Plan: stable Tension type headache POA: Yes Assessment AND Plan: stable Resolved Problems: * No resolved hospital problems. * Discussed with nursing SIGNATURE: Andrae Cox MD PATIENT NAME: Radha Lomax DATE: 12/19/2017 TIME: 9:13 AM PAGER: PROGRESS Observed: 12/19/2017 Status: COMPLETED Source: [facility] 12:00 AM CLINIC OTHER CAMPUS REPOSITORY [facility] ID: [id number] Author: Ralph Marie Service: Psychiatry Author Type: Physician Type: Progress Notes Filed: 12/20/2017 4:38 PM Note Text: [facility] - Progress Note PATIENT NAME: RADHA LOMAX CSN: [id number] DATE OF : 1960 SEX/AGE: F/57 PATIENT TYPE: I HOSP SVC: PSYR LOCATION: [id number] DATE OF SERVICE: 12/19/2017 This patient was seen and interviewed, and there was communication with nursing staff. There was review of clinical chart and recent medical orders. CHIEF COMPLAINT/REASON FOR ADMISSION: This patient was admitted to the hospital because of problems with depression and suicidal ideation. This patient is reported to have problems with anxiety, obsessionality, and panic symptoms. This patient demonstrates significant depressive symptoms contributing to problems in daily functioning. CURRENT CLINICAL HISTORY: Clinical staff members reported this patient seemed brighter, was more animated, but described much difficulty being able to sleep through the night. The patient was describing improvements in mood generally. The patient was overly social with peers and attended all groups and classes. She felt she was having positive improvements related to the recent medication changes. During individual contact, this patient was brighter generally. She seemed more animated. She did not seem anxious and she reported that she was feeling like myself again. Even she seems surprised by her improvements. She admitted that she had slept poorly through the night, but did not seem troubled by this. She did not appear to be having symptoms of agitation. She denied other side effects to medications. She denied any suicidal ideation. There was a meeting with the patient's . The reported that the patient seemed to be doing quite well. He remained frustrated that the patient had been given so many changes to medication and did not appear to be doing as well because of these changes. There were discussions about some alternative plans for aftercare. MENTAL STATUS EXAMINATION: APPEARANCE AND BEHAVIOR: This patient is awake, alert during interview, but appears somewhat disheveled in clothing and appearance. The patient demonstrates very poor eye contact. This patient seems slowed in mentation and has difficulties forming answers to questions. This patient responds minimally during interview. This patient appears anxious and tense during interview. AFFECT: This patient appears blunted and anxious. This patient presents with minimal lability or overreactivity during interview. SPEECH: Shows some evidence of sadness and anxiety in tone, but otherwise speech is age appropriately normal for content and structure. MOOD: This patient continues to present with sadness and depression. This patient describes minimal feelings of anger or irritability. This patient continues to present with anxiety. THOUGHT PROCESS: This patient continues to present with obsessionality, worries, or ruminative thinking. INSIGHT: Continues to be poor for treatment issues. JUDGMENT: This patient continues to appear to have difficulties in making sound reasonable decisions in interactions with others. SUICIDAL IDEATION: This patient describes continued suicidal ideation. HOMICIDAL IDEATION: This patient denies any thoughts to kill or harm others. ASSOCIATIONS: This patient gives continued evidence of loosened associations. ATTENTION, CONCENTRATION, AND FOCUS: This patient continues to have deficits, inability to have mental attention and focus. PSYCHOSIS: This patient denies any type of psychotic symptom, including hallucinations or delusions. ENERGY LEVEL: This patient continues to present with problems of anergia and mental fatigue. CLINICAL ASSESSMENT: This patient continues to demonstrate significant symptoms and problems requiring ongoing hospital care. Vital signs were evaluated and were within normal parameters. This patient describes some minor side effects related to medication therapy, but these seem to be tolerated by the patient. DIAGNOSES: DSM AXIS I: 296.63, bipolar 1 disorder, most recent episode, mixed, severe, without psychotic features. Rule out 296.90, mood disorder, not otherwise specified. 300.02, generalized anxiety disorder. PLAN: We will continue to monitor this patient's response to treatment including medications. We will monitor for emerging side effects and focus on safety issues and improved emotional control. We will also focus on areas of team treatment. We will continue to monitor current medication regimen. There is no plan for medication changes on this date. Ralph Marie MD (Alex) GM:toni /[id number] NURSING PROG Observed: 12/18/2017 Status: COMPLETED Source: [facility] 7:55 PM [facility] OTHER CAMPUS REPOSITORY [facility] ID: [id number] Author: Sinai (Rn) JOHNIE Mars Service: Nursing Author Type: Registered Nurse Type: Nursing Progress Note Filed: 12/19/2017 5:08 AM Note Text: Nursing Progress Note Patient Name: Radha Lomax Patient Location: [place] [address]/[facility]* Daily Note: Pt dressed in hospital clothing. Pt calm and cooperative with assessment. Pt states anxiety 5/10. Pt denies depression at this time. Pt denies SI/ HI, A/VH. Pt states that she found a new coping skill that she is trying to utilize instead of using PRN medication. Pt states that mornings are the worst for her, so RN suggested that she come up to the nurses station in the morning if she is feeling anxious to talk about it and try alternative coping skills before using medications. Pt verbalizes understanding. RN offered emotional support and reassurance. Pt up on unit and social with other patients. Pt agrees to be safe on the unit and to seek staff with any needs. Will continue to monitor. 0430- Pts roommate came up to this RN and stated that patient is very disrupting during the night and that she has food that her snuck in. This RN found wrappers for outside food in the trash. This RN asked patient where she got it from and she stated that her has been bringing it in and there was more underneath her mattress. Patient had three other granola bars hidden under her bed, RN confiscated food and put it in patients locker. Pt has also not been sleeping all night and coming up to the nurses station multiple times asking for more PRN medications. Patient does not attempt to try and sleep and appears to be in a hypomanic state. RN has encouraged patient multiple times to go lay down in her bed and try different coping techniques to keep her calm and help her go to sleep. Will continue to monitor. This note was completed by: Sinai Mars RN ALLIED HEALTH Observed: 12/18/2017 Status: COMPLETED Source: [facility] 4:54 PM CLINIC OTHER CAMPUS REPOSITORY [facility] ID: [id number] Author: Ama (Therapist) Mylene Crain Service: Art Therapy Author Type: Therapist Type: Allied Health Filed: 12/18/2017 4:57 PM Note Text: PROGRESS NOTE BEHAVIORAL HEALTH Topic of Note: Group Participation SERVICE DATE: 12/18/2017 SERVICE TIME: 14:30 - 16:00 -A-Pt stated that they are feeling light hearted. Pt presented with moderate level of energy and appropriate affect. Pt actively participated in activity and discussion. -I- Facilitated group re: boundaries .Therapist provided Psychoeducation and opportunity to express thoughts and feelings. -E- Pt. Could benefit from continued expression of thoughts and feelings. SIGNATURE: Ama Crain LPC PATIENT NAME: Radha Lomax DATE: December 18, 2017 TIME: 4:54 PM PAGER/CONTACT #: ALLIED HEALTH Observed: 12/18/2017 Status: COMPLETED Source: [facility] 2:34 PM CLINIC OTHER CAMPUS REPOSITORY [facility] ID: [id number] Author: Emanuel Castillo (Chaplain) Service: Spiritual Care Author Type: Operator Control Room Type: Allied Health Filed: 12/18/2017 4:26 PM Note Text: SPIRITUAL CARE Spiritual Care Visit Record Name: Radha Lomax Date: December 18, 2017 Type of Visit: Introductory Visit Urgency of Visit: Routine Visit was with (pt, family, other) and name(s): . SPIRITUAL CARE VISIT Spiritual Distress: 6 - Operator Control Room Observation. Spiritual Distress Scale (1-10 with 1= low distress and 10 = highest distress imaginable) Explain Meaning of Rating: Patient has substantial concerns regarding how her life changed several years ago after many years of activity. Strong desire to serve God and others, encouragement offered in continuing to look at care for self. 1. Ministry Provided During Visit: Facilitate Ep[employer] Practice Prayer / Meditation / Guided Imagery 2. Themes Discussed During Visit: Being of Value / Self-Love Shanique / Hope versus Fear / Dispair Gloria / Gratefulness 3. Spiritual Ep[employer] Issues, Beliefs Significant to Healing, or Other Notes: REFERRAL(S ) / TEAM COLLABORATION Referrals: No referral made Notes Regarding Collaboration / Consultation With Care Team: FUTURE SPIRITUAL CARE PLANS Will See: As Needed Only Follow-up Notes: Informed patient of Operator Control Room availability Operator Control Room Signature: Chaplain Ez To contact the Spiritual Care Department: Please call [phone] or Page the On-Call Operator Control Room at pager [phone] Thank you for the opportunity to be of service. This is an electronically created document. IF PRINTED, PLEASE DO NOT REMOVE FROM THE CHART OR MODIFY PRINTED COPY. ALLIED HEALTH Observed: 12/18/2017 Status: COMPLETED Source: [facility] 1:44 PM [facility] OTHER CAMPUS REPOSITORY [facility] ID: [id number] Author: Ama (Therapist) Mylene Crain Service: Art Therapy Author Type: Therapist Type: Allied Health Filed: 12/18/2017 1:53 PM Note Text: PROGRESS NOTE BEHAVIORAL HEALTH Topic of Note: Group Participation SERVICE DATE: 12/18/2017 SERVICE TIME: 9:40am- 11:30am -A-Pt stated that they are feeling anxioius. Pt presented with a low level of energy and flexible affect. Pt actively participated in activity and discussion. Pt. Painted her box yellow which reminded her of happy. She put shells inside which reminded her of worry stones.. -I- Facilitated group re: safe boxes .Therapist provided opportunity to express thoughts and feelings. -E- Pt. Could benefit from continued group attendance and expression of thoughts and feelings. SIGNATURE: Ama Crain LPC PATIENT NAME: Radha Lomax DATE: December 18, 2017 TIME: 1:45 PM PAGER/CONTACT #: CONSULT PROG Observed: 12/18/2017 Status: COMPLETED Source: [facility] 9:32 AM [facility] OTHER CAMPUS REPOSITORY O ID: [id number] Author: Andrae Cox Service: General Internal Medicine Author Type: Physician Type: Consult Progress Note Filed: 12/18/2017 9:32 AM Note Text: INPATIENT PROGRESS NOTE SERVICE DATE: 12/18/2017 SERVICE TIME: 9:32 AM Subjective CHIEF COMPLAINT: Suicidal ideation PRIMARY SERVICE: Psych INTERVAL HPI: no changes medically Current hospital medications: docusate sodium 100 mg cap(s) (COLACE) 100 mg ORAL BID PRN lamoTRIgine (LaMICtal) tab(s) 150 mg 150 mg ORAL BID buPROPion XL 150 mg tab(s) (WELLBUTRIN XL) 150 mg ORAL DAILY FLUoxetine 20 mg cap(s) (PROzac) 20 mg ORAL DAILY dextromethorphan 60 mg oral liquid ER (DELSYM) 60 mg ORAL AT BEDTIME Lip Protectant with Sunscreen SPF 15 1 application Stick (Blistex) 1 application TOPICAL PRN benzocaine-menthol 1 Lozenge (CEPACOL) 1 Lozenge MUCOUS MEMBRANE (TOPICAL MOUTH AND THROAT) q 2 H PRN traZODone 100 mg tab(s) (DESYREL) 100 mg ORAL HS PRN acetaminophen 650 mg tab(s) (TYLENOL) 650 mg ORAL q 6 H PRN aluminum-magnesium hydroxide-simethicone 200-200-20 mg/5 mL 30 mL (MAALOX,MYLANTA,MAG-AL PLUS) 30 mL ORAL q 4 H PRN magnesium hydroxide 400 mg/5 mL 30 mL (MOM) 30 mL ORAL DAILY PRN OLANZapine orally disintegrating 5 mg tab(s) (ZyPREXA ZYDIS) 5 mg ORAL q 4 H PRN LORazepam 0.5 mg tab(s) (ATIVAN) 0.5 mg ORAL BID PRN DULoxetine 60 mg cap(s) (CYMBALTA) 60 mg ORAL DAILY tolterodine ER 2 mg cap(s) (DETROL LA) 2 mg ORAL AT BEDTIME atorvastatin 20 mg tab(s) (LIPITOR) 20 mg ORAL AT BEDTIME Objective PHYSICAL EXAM: BP 142/65 Pulse 93 Temp (Src) 98.8 (Oral) Resp 16 Ht 5' 2.992 (1.60m) Wt 156 lb (70.8kg) SpO2 99% BMI 27.64 kg/(m2). GENERAL: Alert, no distress, cooperative LUNGS: Lungs clear to auscultation, Good diaphragmatic excursion CARDIAC: Normal S1 and S2; no rubs, murmurs, or gallops ABDOMEN: Abdomen soft, non-tender, BS normal, No masses or organomegaly DATA: Diagnostic tests reviewed for today's visit: No new labs Assessment/Plan Principal Problem: Suicidal ideation POA: Yes Assessment AND Plan: psych Active Problems: Slow transit constipation POA: Yes Assessment AND Plan: stable Tension type headache POA: Yes Assessment AND Plan: no changes Resolved Problems: * No resolved hospital problems. * Discussed with nursing SIGNATURE: Andrae Cox MD PATIENT NAME: Radha Lomax DATE: 12/18/2017 TIME: 9:32 AM PAGER: NURSING PROG Observed: 12/18/2017 Status: COMPLETED Source: SIMS 9:05 AM CLINIC OTHER CAMPUS REPOSITORY O ID: [id number] Author: Lizbeth (Rn) JOHNIE Bearden Service: Nursing Author Type: Registered Nurse Type: Nursing Progress Note Filed: 12/18/2017 9:52 AM Note Text: Nursing Progress Note Patient Name: Radha Lomax Patient Location: [id number]/[facility]6400-450* Daily Note: Patient is well groomed and resting in room. Patient out to day bolaños this morning for breakfast and is compliant with medication. Patient denies suicidal and homicidal ideation and agrees to be safe on unit. Patient denies hallucinations. Patient states anxiety is 4/10 after zyprexa and depression is 7/10. Patient states that her her appetite has been lower than normal. Patient states that she slept well last night. I'm just so tired. Patient appears thought blocked and is slow to answer assessment questions. Patient states that her zyprexa has been helping her anxiety. Patient denies needs and is encouraged to attend group therapy today. Patient continues to rest in room and will continue to be monitored. This note was completed by: Lizbeth Bearden RN NURSING PROG Observed: 12/18/2017 Status: COMPLETED Source: [facility] 8:03 AM [facility] REPOSITORY [facility] ID: [id number] Author: Lizbeth (Rn) JOHNIE Bearden Service: Nursing Author Type: Registered Nurse Type: Nursing Progress Note Filed: 12/18/2017 9:41 AM Note Text: Nursing Progress Note Patient Name: Radha Lomax Patient Location: [place] [address]/[place] [address]* 0[address] Patient sitting in day bolaños eating breakfast. Patient begins rocking back and forth and shaking when nurse approaches. Patient states she has anxiety and that she is having a conversion reaction. Patient rates anxiety 7/10. RN gives emotional support and encourages patient to use breathing exercises. Patient assisted to nursing station and given zyprexa zydis 5mg. Patient states she will rest in her room. Patient agrees to notify staff with needs and will continue to be monitored. This note was completed by: Lizbeth Bearden RN PROGRESS Observed: 12/18/2017 Status: COMPLETED Source: [facility] 12:00 AM [facility] REPOSITORY [facility] ID: [id number] Author: Ralph Marie Service: Psychiatry Author Type: Physician Type: Progress Notes Filed: 12/19/2017 6:52 PM Note Text: [facility] - Progress Note PATIENT NAME: RADHA LOMAX CSN: [id number] DATE OF : 1960 SEX/AGE: F/57 PAT[place] [facility] [place] [facility] LOCATION: [id number] DATE OF SERVICE: 12/18/2017 This patient was seen and interviewed, and there was communication with nursing staff. There was review of clinical chart and recent medical orders. CHIEF COMPLAINT/REASON FOR ADMISSION: This patient was admitted to the hospital because of problems with depression and suicidal ideation. This patient is reported to have problems with anxiety, obsessionality, and panic symptoms. This patient demonstrates significant depressive symptoms contributing to problems in daily functioning. CURRENT CLINICAL HISTORY: Clinical staff members reported this patient was up in the morning. She was claiming better sleep. The patient was appearing anxious and worried and was given p.r.n. medication, Zyprexa. She continued to describe tiredness and depression. She was able to attend groups and classes. During individual contact, this patient appeared brighter and was more animated. She admitted that her mood was much improved and she reported that her energy was better too. She reported that she had struggled throughout the morning with energy and mood, anxiety. She reported that as the day had progressed, she was feeling a lot better. The patient was denying any side effects to medications. She continued to have difficulty remembering recent medication changes, dosages, or the reasons for the changes. She denied any suicidal ideation. The patient claims she was very much looking forward to visit with her and did not describe any difficulties in the relationship. MENTAL STATUS EXAMINATION: APPEARANCE AND BEHAVIOR: This patient is awake, alert during interview, but appears somewhat disheveled in clothing and appearance. The patient demonstrates very poor eye contact. This patient seems slowed in mentation and has difficulties forming answers to questions. This patient responds minimally during interview. This patient appears anxious and tense during interview. AFFECT: This patient appears blunted and anxious. This patient presents with minimal lability or overreactivity during interview. SPEECH: Shows some evidence of sadness and anxiety and tone, but otherwise speech is age appropriately normal for content and structure. MOOD: This patient continues to present with sadness and depression. This patient describes minimal feelings of anger or irritability. This patient continues to present with anxiety. THOUGHT PROCESS: This patient continues to present with obsessionality, worries, or ruminative thinking. INSIGHT: Continues to be poor for treatment issues. JUDGMENT: This patient continues to appear to have difficulties in making sound reasonable decisions in interactions with others. SUICIDAL IDEATION: This patient describes continued suicidal ideation. HOMICIDAL IDEATION: This patient denies any thoughts to kill or harm others. ASSOCIATIONS: This patient gives continued evidence of loosened associations. ATTENTION, CONCENTRATION, AND FOCUS: This patient continues to have deficits, inability to have mental attention and focus. PSYCHOSIS: This patient denies any type of psychotic symptom, including hallucinations or delusions. ENERGY LEVEL: This patient continues to present with problems of anergia and mental fatigue. CLINICAL ASSESSMENT: This patient continues to demonstrate significant symptoms and problems requiring ongoing hospital care. Vital signs were evaluated and were within normal parameters. This patient describes some minor side effects related to medication therapy, but these seem to be tolerated by the patient. DIAGNOSES: DSM AXIS I: 296.63, bipolar 1 disorder, most recent episode, mixed, severe, without psychotic features. Rule out, 296.90, mood disorder, not otherwise specified. 300.02, generalized anxiety disorder. PLAN: We will continue to monitor this patient's response to treatment including medications. We will monitor for emerging side effects and focus on safety issues and improved emotional control. We will also focus on areas of team treatment. We will decrease Lamictal to 150 mg b.i.d. Ralph Marie MD (Alex) GM:modl /[id number] NURSING PROG Observed: 12/17/2017 Status: COMPLETED Source: [facility] 8:59 PM CLINIC OTHER CAMPUS REPOSITORY [facility] ID: [id number] Author: Alex (Johnie) JOHNIE Gonzalez Service: Behavioral Health Author Type: Registered Nurse Type: Nursing Progress Note Filed: 12/18/2017 1:03 AM Note Text: Nursing Progress Note Patient Name: Radha Lomax Patient Location: [id number]/[facility]6400-641* Spoke with pt in back hallway. Pt rates anxiety /10 stating it's pretty low; it comes and goes. Pt rates depression 10 stating it's not real bad. Pt denies SI/HI/AH/VH. Pt appears well groomed. Pt agrees to be safe on the unit and seek staff assistance with any further needs. Pt calm, cooperative, polite. Pt states today is going better; I took a shower this morning; I went to all the groups today; I was up all day and out of my room; I feel like I have more energy today. Will continue to monitor for safety. This note was completed by: Alex Gonzalez RN ALLIED HEALTH Observed: 12/17/2017 Status: COMPLETED Source: [facility] 5:05 PM [facility] OTHER [place] REPOSITORY [facility] ID: [id number] Author: Ama (Therapist) Mylene Crain Service: Art Therapy Author Type: Therapist Type: Allied Health Filed: 12/17/2017 5:07 PM Note Text: PROGRESS NOTE BEHAVIORAL HEALTH Topic of Note: Group Participation SERVICE DATE: 12/17/2017 SERVICE TIME: 14:45-15:30 -A-Pt stated that they are feeling hopeful. Pt presented with moderate level of energy and appropriate affect. Pt actively participated in activity and discussion. Pt. 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 -I- Facilitated group re: A childhood memory. Therapist provided opportunity to express thoughts and feelings. -E- Pt. could benefit from continued support and talking about her thoughts and feelings in group. SIGNATURE: Ama Crain LPC PATIENT NAME: Radha Lomax DATE: December 17, 2017 TIME: 5:06 PM PAGER/CONTACT #: ALLIED HEALTH Observed: 12/17/2017 Status: COMPLETED Source: [facility] 1:35 PM [facility] OTHER [place] REPOSITORY [facility] ID: [id number] Author: Ama (Therapist) Mylene Crain Service: Art Therapy Author Type: Therapist Type: Allied Health Filed: 12/17/2017 1:42 PM Note Text: PROGRESS NOTE BEHAVIORAL HEALTH Topic of Note: Group Participation SERVICE DATE: 12/17/2017 SERVICE TIME: 9:40-11:30 -A-Pt stated that they are feeling loving. Pt. reported that her anxiety was a 5/10. Pt presented with moderate level of energy and appropriate affect. Pt actively participated in activity and discussion. Pt. said that she is grateful for her , step dad, mother. Friends, Dr. Marie, God and Catrachita. -I- Facilitated group re: Gratitude journal. Therapist provided opportunity to express thoughts and feelings. -E- Pt. could benefit from continued support and talking about her thoughts and feelings in group. SIGNATURE: Ama Crain LPC PATIENT NAME: Radha Lomax DATE: December 17, 2017 TIME: 1:35 PM PAGER/CONTACT #: NURSING PROG Observed: 12/17/2017 Status: COMPLETED Source: [facility] 1:13 PM [facility] OTHER [place] REPOSITORY [facility] ID: [id number] Author: Lizbeth Nolasco) JOHNIE Bearden Service: Nursing Author Type: Registered Nurse Type: Nursing Progress Note Filed: 12/17/2017 1:48 PM Note Text: Nursing Progress Note Patient Name: Radha Lomax Patient Location: [place] [address]/[place] [address]* Patient requesting zyprexa for anxiety 01/15. Patient encouraged to use coping skills. Patient states she has tried reading and that distraction has not lessened anxiety. Patient states anxiety was increasing in group therapy. Patient encouraged to notify staff of increasing anxiety. Patient states she will walk the halls to decrease anxiety and will notify staff if anxiety worsens. Patient given zyprexa and continues to ambulate on unit. This note was completed by: Lizbeth Bearden RN NURSING PROG Observed: 12/17/2017 Status: COMPLETED Source: [facility] 12:00 PM [facility] OTHER [place] REPOSITORY [facility] ID: [id number] Author: Lizbeth Nolasco) JOHNIE Bearden Service: Nursing Author Type: Registered Nurse Type: Nursing Progress Note Filed: 12/17/2017 2:04 PM Note Text: Nursing Progress Note Patient Name: Radha Lomax Patient Location: [id number]* Patient showered today and attended group therapy. Patient ate 100% of lunch. Patient has been ambulating on unit. Patient denies current needs and will continue to be monitored. This note was completed by: Lizbeth Bearden RN CONSULT PROG Observed: 12/17/2017 Status: COMPLETED Source: SIMS 10:21 AM CLINIC OTHER CAMPUS REPOSITORY O ID: [id number] Author: Andrae Cox Service: General Internal Medicine Author Type: Physician Type: Consult Progress Note Filed: 12/17/2017 10:21 AM Note Text: INPATIENT PROGRESS NOTE SERVICE DATE: 12/17/2017 SERVICE TIME: 10:21 AM Subjective CHIEF COMPLAINT: Suicidal ideation PRIMARY SERVICE: Psych INTERVAL HPI: no changes medically Current hospital medications: docusate sodium 100 mg cap(s) (COLACE) 100 mg ORAL BID PRN buPROPion XL 150 mg tab(s) (WELLBUTRIN XL) 150 mg ORAL DAILY FLUoxetine 20 mg cap(s) (PROzac) 20 mg ORAL DAILY dextromethorphan 60 mg oral liquid ER (DELSYM) 60 mg ORAL AT BEDTIME Lip Protectant with Sunscreen SPF 15 1 application Stick (Blistex) 1 application TOPICAL PRN benzocaine-menthol 1 Lozenge (CEPACOL) 1 Lozenge MUCOUS MEMBRANE (TOPICAL MOUTH AND THROAT) q 2 H PRN traZODone 100 mg tab(s) (DESYREL) 100 mg ORAL HS PRN acetaminophen 650 mg tab(s) (TYLENOL) 650 mg ORAL q 6 H PRN aluminum-magnesium hydroxide-simethicone 200-200-20 mg/5 mL 30 mL (MAALOX,MYLANTA,MAG-AL PLUS) 30 mL ORAL q 4 H PRN magnesium hydroxide 400 mg/5 mL 30 mL (MOM) 30 mL ORAL DAILY PRN OLANZapine orally disintegrating 5 mg tab(s) (ZyPREXA ZYDIS) 5 mg ORAL q 4 H PRN LORazepam 0.5 mg tab(s) (ATIVAN) 0.5 mg ORAL BID PRN DULoxetine 60 mg cap(s) (CYMBALTA) 60 mg ORAL DAILY tolterodine ER 2 mg cap(s) (DETROL LA) 2 mg ORAL AT BEDTIME lamoTRIgine 200 mg tab(s) (LaMICtal) 200 mg ORAL BID atorvastatin 20 mg tab(s) (LIPITOR) 20 mg ORAL AT BEDTIME Objective PHYSICAL EXAM: BP 124/76 Pulse 76 Temp (Src) 98.1 (Oral) Resp 16 Ht 5' 2.992 (1.60m) Wt 156 lb (70.8kg) SpO2 97% BMI 27.64 kg/(m2). GENERAL: Alert, no distress, cooperative LUNGS: Lungs clear to auscultation, Good diaphragmatic excursion CARDIAC: Normal S1 and S2; no rubs, murmurs, or gallops ABDOMEN: Abdomen soft, non-tender, BS normal, No masses or organomegaly DATA: Diagnostic tests reviewed for today's visit: No new labs Assessment/Plan Principal Problem: Suicidal ideation POA: Yes Assessment AND Plan: psych Active Problems: Slow transit constipation POA: Yes Assessment AND Plan: stable Tension type headache POA: Yes Assessment AND Plan: no changes Resolved Problems: * No resolved hospital problems. * Discussed with nursing SIGNATURE: Andrae Cox MD PATIENT NAME: Radha Lomax DATE: 12/17/2017 TIME: 10:21 AM PAGER: NURSING PROG Observed: 12/17/2017 Status: COMPLETED Source: SIMS 8:55 AM CLINIC OTHER CAMPUS REPOSITORY [facility] ID: [id number] Author: Lizbeth (Rn) JOHNIE Bearden Service: Nursing Author Type: Registered Nurse Type: Nursing Progress Note Filed: 12/17/2017 2:01 PM Note Text: Nursing Progress Note Patient Name: Radha Lomax Patient Location: [id number]/[facility]585* Daily Note: Patient appears disheveled and is resting in bed. Patient appears anxious and thought blocked. Patient is compliant with medication.Patient states she came to the hospital with suicidal thoughts and I was lying in bed a lot. Patient states that she was not performing self care activities at home. My hygiene always goes when I get depressed.Patient agrees to shower today and attend group therapy. Patient denies suicidal and homicidal ideation and agrees to be safe on unit. Sometimes I have suicidal thoughts. Patient denies hallucinations. Patient states anxiety is 5/10 with no specific cause and depression is 6/10. Patient states she slept well last night. Patient states she has a low appetite, patient ate 15% of breakfast. Patient states that she sees Dr. Booth as her primary care physician and Nurse Practitioner Jael [facility] at [facility].Patient agrees to notify staff with needs and will continue to be monitored. This note was completed by: Lizbeth Bearden RN PROGRESS Observed: 12/17/2017 Status: COMPLETED Source: SIMS 12:00 AM [facility] OTHER CAMPUS REPOSITORY [facility] ID: [id number] Author: Ralph Marie Service: Psychiatry Author Type: Physician Type: Progress Notes Filed: 12/18/2017 7:47 PM Note Text: [facility] - Progress Note PATIENT NAME: RADHA LOAMX [facility]: [id number] DATE OF : 1960 SEX/AGE: F/57 PAT[place] [facility] [place] [facility] LOCATION: [id number] DATE OF SERVICE: 12/17/2017 This patient was seen and interviewed, and there was communication with nursing staff. There was review of clinical chart and recent medical orders. CHIEF COMPLAINT/REASON FOR ADMISSION: This patient was admitted to the hospital because of problems with depression and suicidal ideation. This patient is reported to have problems with anxiety, obsessionality, and panic symptoms. This patient demonstrates significant depressive symptoms contributing to problems in daily functioning. CURRENT CLINICAL HISTORY: Clinical staff members reported this patient seemed blunted, withdrawn. The patient was disheveled, but was encouraged to be up and around out of bed. She remained in her room often through the day although did arise. The patient described significant anxiety and was given the medication Zyprexa Zydis because the Ativan had been discontinued. The patient was attending groups and classes. During individual contact, this patient seemed blunted but not overly anxious. The patient was not appearing overly tired. The patient seemed to be rather dull cognitively. She seemed to at times appeared to have difficulties remembering different issues. This was consistent with the previous day and her presentation. The patient was asked about her medications including the significant increase in the medication Lamictal. The patient had implied that this recent change in Lamictal had contributed to cognitive dulling and tiredness. The patient, however, could not describe when the Lamictal had been increased and was not even clear about the dosage that was purported to be approximately 200 mg twice per day. The patient was claiming that she had no further suicidal ideation. The patient was reminded that she had taken the medication Prozac before successfully. The patient had refused the Prozac claiming that it had caused problems for her in the past. The patient seemed to have continued difficulties describing when changes in medication had occurred or when things became worsened. The patient was asking about medication Ativan. She was reminded that the Zyprexa Zydis was to be given now that the Ativan had been discontinued, and that this would be a trial time to take the place. MENTAL STATUS EXAMINATION: APPEARANCE AND BEHAVIOR: This patient is awake, alert during interview, but appeared somewhat disheveled in clothing and appearance. This patient seemed slowed in mentation and has difficulties forming answers to questions, this patient responds minimally during interview. This patient appears anxious and tense during interview. AFFECT: This patient appears blunted and anxious. This patient presents with minimal lability or overreactivity during interview. SPEECH: Shows some evidence of sadness and anxiety and tone, but otherwise speech is age appropriately normal for content and structure. MOOD: This patient continues to present with sadness and depression. This patient describes minimal feelings of anger or irritability. This patient continues to present with anxiety. THOUGHT PROCESS: This patient continues to present with obsessionality, worries, or ruminative thinking. INSIGHT: Continues to be poor for treatment issues. JUDGMENT: This patient continues to appear to have difficulties in making sound reasonable decisions in interactions with others. SUICIDAL IDEATION: This patient describes continued suicidal ideation. HOMICIDAL IDEATION: This patient denies any thoughts to kill or harm others. ASSOCIATIONS: This patient gives continued evidence of loosened associations. ATTENTION, CONCENTRATION, FOCUS: This patient continues to have deficits, inability to have mental attention and focus. PSYCHOSIS: This patient denies any type of psychotic symptom including hallucinations or delusions. ENERGY LEVEL: This patient continues to present with problems of anergia and mental fatigue. CLINICAL ASSESSMENT: This patient continues to demonstrate significant symptoms and problems requiring ongoing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
== END ==
PROVIDERS: Visit Provider Family Medicine Geriatric Medicine
DX: E55.9 Vitamin D deficiency, unspecified (principal); R53.83 Other fatigue; N39.0 Urinary tract infection, site not specified
CPT/HCPCS: 36415; 80053; 82306; 84443; 85025; 87086; 87088

== ENCOUNTER → 2018-11-08 | Outpatient (CLI) | payer MEDICARE, SELFPAY ==
[2018-11-08 17:25] LABS: Basophil# 0.02 X10^3/uL; Basophil% 0.2 % (0-1); Eosinophil# 0.19 X10^3/uL; Eosinophils% 2.3 % (0-5); Hematocrit 38.3 % (37-47); Hemoglobin 12.3 g/dl (12.0-15.0); Lymphocyte % 30.6 % (19-41); Mean Corp Hgb Conc 32.1 g/gl (32-36); Mean Corpuscular Hgb 30.1 pg (27.0-32.0); Mean Corpuscular Volume 93.9 fL (81-99); Mean Platelet Vol. 11.5 fl (6.2-12.0); Monocyte# 0.41 X10^3/uL; Neutrophil # 5.03 X10^3/uL (2.7-7.7); Neutrophil % 61.7 % (47-70); Platelet Count 238 K/mm3 (150-450); RBC Distribution Width CV 13.9 % (11.6-14.6); RBC Distribution Width SD 47.3 fl (35.1-43.9); Red Blood Count 4.08 M/mm3 (4.2-5.4); White Blood Count 8.2 K/mm3 (4.4-11.0)
[2018-11-08 17:35] LABS: POSITIVE COUNT NO; POSITIVE DIFFERENTIAL NO; POSITIVE MORPHOLOGY NO
[2018-11-08 17:56] LABS: Vitamin D,25 Hydroxy 29.6 ng/mL (29.95-100.01)
[2018-11-08 18:10] LABS: ALB/GLOB Ratio 0.8 RATIO (0.9-2.4); AST(SGOT) 20 U/L (15-37); Alanine Aminotransfer ALT/SGPT 32 U/L (13-56); Albumin, Serum 3.4 g/dL (3.2-5.0); Alkaline Phosphatase 109 U/L (45-117); Anion Gap 10 (5-15); BUN 21 mg/dL (7-18); BUN/Creat Ratio 21.9 RATIO (10-20); Calcium,Total 8.6 mg/dL (8.5-10.1); Chloride 104 mmol/L (98-107); Cholesterol 167 mg/dL (200); Creatinine, Serum 0.96 mg/dL (0.55-1.02); EST Glomerular Filtration Rate 64 mL/min (>60); Est Glom Filt Rate - Afr Amer 77 mL/min (>60); Globulin 4.2 g/dL (2.2-4.2); Glucose 102 mg/dL (74-106); High Density Lipoprotein 83 mg/dL; Protein, Total 7.6 g/dL (6.4-8.2); Sodium Level 142 mmol/L (136-145); Thyroid Stim Hormone (TSH) 2.44 uIU/mL (0.358-3.74); Triglycerides 62 mg/dL; Very Low Density Lipoprotein 12 mg/dL (5-40)
== END | disposition home or self-care (01) ==
LOC: POLAB3 13:51
PROVIDERS: Family Provider Family Medicine Geriatric Medicine; PCP Family Medicine Geriatric Medicine; Referring Provider Family Medicine Geriatric Medicine; Visit Provider Family Medicine Geriatric Medicine
DX: E78.5 Hyperlipidemia, unspecified (principal); R53.83 Other fatigue; E55.9 Vitamin D deficiency, unspecified
CPT/HCPCS: 36415; 80053; 80061; 82306; 84443; 85025

== ENCOUNTER → 2018-12-30 | Outpatient (CLI) | payer MEDICARE, SELFPAY ==
--- NOTE | 2018-12-30 14:23 | RAD_ITS ---
STUDY: X-RAY - LEFT KNEE REASON FOR EXAM: Female, 58 years old. Pain, stiffness TECHNIQUE: 5 view(s) of the knee. COMPARISON: None. FINDINGS: Normal visualized distal femur. Normal visualized proximal tibia and fibula. Normal proximal tibiofibular articulation. Normal medial femorotibial compartment. Normal lateral femorotibial compartment. Normal patellofemoral articulation. The soft tissue structures are unremarkable. RAD/Knee 4 or More Views IMPRESSION: Normal x-ray examination of the knee. Electronically Signed: Cali Young MD at 15:03 EDT , Service support ,
--- NOTE | 2018-12-30 14:23 | RAD_ITS ---
STUDY: X-RAY - RIGHT WRIST REASON FOR EXAM: Female, 58 years old. Pain after fall TECHNIQUE: 3 view(s) of the wrist were obtained. COMPARISON: None. FINDINGS: Normal visualized distal radius and ulna. Normal radiocarpal articulation. Normal distal radioulnar articulation. Normal carpal bones. Normal carpal articulations. Normal carpometacarpal articulation of the thumb. Normal second through fifth carpometacarpal articulations. Normal visualized metacarpal bones. The soft tissue structures are unremarkable. RAD/Wrist min 3 Views IMPRESSION: Normal x-ray examination of the wrist. Electronically Signed: Cali Young MD at 14:59 EDT , Service support ,
--- NOTE | 2018-12-30 14:23 | RAD_ITS ---
STUDY: X-RAY - LUMBAR SPINE REASON FOR EXAM: Female, 58 years old. Pain, stiffness TECHNIQUE: 4 view(s) of the lumbar spine were obtained. COMPARISON: None FINDINGS: Normal lumbar lordosis. There is a mild dextroscoliosis of the lumbar spine. There is a normal alignment of the vertebrae in the lateral view. There is multilevel endplate spondylosis of the lumbar vertebrae. There is multi-level degenerative disc disease with multi-level disc space narrowing. There is no demonstrated fracture. The soft tissue structures are unremarkable. RAD/Lumbar Spine 2 or 3 Views IMPRESSION: Degenerative changes of the spine, as detailed above. Electronically Signed: Cali Young MD at 15:03 EDT , Service support ,
--- NOTE | 2018-12-30 14:30 | RAD_ITS ---
STUDY: X-RAY - RIGHT RADIUS AND ULNA REASON FOR EXAM: Female, 58 years old. Pain after a fall TECHNIQUE: 2 view(s) of the forearm. COMPARISON: None. FINDINGS: There is no demonstrated soft tissue swelling. Normal visualized radius. Normal visualized ulna. RAD/Forearm 2 Views IMPRESSION: Normal x-ray examination of the radius and ulna. Electronically Signed: Cali Young MD at 15:00 EDT , Service support ,
== END | disposition home or self-care (01) ==
LOC: RAD 14:20
PROVIDERS: Family Provider Family Medicine Geriatric Medicine; PCP Family Medicine Geriatric Medicine; Referring Provider Family Medicine Geriatric Medicine; Visit Provider Family Medicine Geriatric Medicine
DX: M54.5 Low back pain (principal); M79.601 Pain in right arm; M25.562 Pain in left knee; M25.531 Pain in right wrist
CPT/HCPCS: 72100; 73090; 73110; 73564

== ENCOUNTER → 2019-05-13 10:23 | Outpatient (CLI) | payer MEDICARE, SELFPAY ==
[2019-05-13 11:45] LABS: Absolute Lymphocyte Count 1.88 X10^3/uL (0.83-4.51); Absolute Neutrophil Count 5.6 X10^3/uL (2.0-7.7); Basophil# 0.04 X10^3/uL; Basophil% 0.5 % (0-1); Eosinophil# 0.18 X10^3/uL; Eosinophils% 2.1 % (0-5); Hematocrit 39.7 % (37-47); Hemoglobin 12.6 g/dL (12.0-15.0); Lymphocyte # 1.88 X10^3/ul (4.0); Lymphocyte % 22.4 % (19-41); Mean Corp Hgb Conc 31.7 g/dL (32-36); Mean Corpuscular Hgb 30.5 pg (27.0-32.0); Mean Corpuscular Volume 96.1 fL (81-99); Mean Platelet Vol. 11.4 fl (6.2-12.0); Monocyte# 0.69 X10^3/uL; Monocyte% 8.2 % (0-10); NRBC Flagged by Analyzer 0 % (0-5); Neutrophil # 5.58 X10^3/uL (2.7-7.7); Neutrophil % 66.3 % (47-70); Platelet Count 239 K/mm3 (150-450); RBC Distribution Width CV 13.5 % (11.6-14.6); Red Blood Count 4.13 M/mm3 (4.2-5.4); White Blood Count 8.4 K/mm3 (4.4-11.0)
[2019-05-13 12:05] LABS: ALB/GLOB Ratio 0.9 RATIO (0.9-2.4); AST(SGOT) 21 U/L (15-37); Alanine Aminotransfer ALT/SGPT 31 U/L (13-56); Albumin, Serum 3.6 g/dL (3.2-5.0); Alkaline Phosphatase 107 U/L (45-117); Anion Gap 6 (5-15); BUN 17 mg/dL (7-18); Calcium,Total 9.1 mg/dL (8.5-10.1); Chloride 108 mmol/L (98-107); Cholesterol 231 mg/dL (200); Creatinine, Serum 0.95 mg/dL (0.55-1.02); EST Glomerular Filtration Rate 65 mL/min (>60); Est Glom Filt Rate - Afr Amer 78 mL/min (>60); Globulin 3.9 g/dL (2.2-4.2); Glucose 99 mg/dL (74-106); High Density Lipoprotein 110 mg/dL; Potassium 4.1 mmol/L (3.5-5.1); Protein, Total 7.5 g/dL (6.4-8.2); Sodium Level 141 mmol/L (136-145); Thyroid Stim Hormone (TSH) 1.27 uIU/mL (0.358-3.74); Triglycerides 46 mg/dL; Very Low Density Lipoprotein 9 mg/dL (5-40)
== END ==
PROVIDERS: Family Provider Family Medicine Geriatric Medicine; PCP Family Medicine Geriatric Medicine; Visit Provider Family Medicine Geriatric Medicine
DX: R53.83 Other fatigue (principal); E78.5 Hyperlipidemia, unspecified; E55.9 Vitamin D deficiency, unspecified
CPT/HCPCS: 36415; 80053; 80061; 82306; 84443; 85025